=== PATIENT | female | born 1940 | race Caucasian/White ===

== ENCOUNTER 2016-10-18 11:53 | Outpatient (CLI) | payer MEDICARE, OTHER | END 2016-10-18 11:54 | disposition critical access hospital (66) | DX: R13.10 Dysphagia, unspecified (principal) | CPT/HCPCS: A0425; A0429 ==

== ENCOUNTER 2016-10-18 12:09 | Emergency (ER) | payer MEDICARE, OTHER | END 2016-10-18 13:56 | disposition home or self-care (01) | DX: L76.22 Postprocedural hemorrhage of skin and subcutaneous tissue following other procedure (principal); Z85.828 Personal history of other malignant neoplasm of skin; Z79.82 Long term (current) use of aspirin; I10 Essential (primary) hypertension; Z86.73 Personal history of transient ischemic attack (TIA), and cerebral infarction without residual deficits ==

== ENCOUNTER 2016-11-30 09:24 | Outpatient (CLI) | payer MEDICARE, OTHER | END 2016-11-30 09:25 | disposition EMS.NT | LOC: EMS 09:24 | PROVIDERS: ATTEND Surgery | DX: R53.1 Weakness (principal) ==

== ENCOUNTER 2017-03-31 18:30 | Outpatient (CLI) | payer MEDICARE, MEDICAID | END 2017-03-31 18:31 | disposition EMS.NT | LOC: EMS 18:30 | PROVIDERS: ATTEND Surgery | DX: R42 Dizziness and giddiness (principal); R11.0 Nausea; W18.30XA Fall on same level, unspecified, initial encounter; Y92.008 Other place in unspecified non-institutional (private) residence as the place of occurrence of the external cause ==

== ENCOUNTER 2017-06-08 10:44 | Outpatient (CLI) | payer MEDICARE | END 2017-06-08 10:45 | disposition EMS.NT | LOC: EMS 10:44 | PROVIDERS: ATTEND Surgery | DX: Z03.89 Encounter for observation for other suspected diseases and conditions ruled out (principal); W08.XXXA Fall from other furniture, initial encounter; Y92.000 Kitchen of unspecified non-institutional (private) residence as the place of occurrence of the external cause ==

== ENCOUNTER 2017-07-29 10:51 | Outpatient (CLI) | payer MEDICARE | END 2017-07-29 10:52 | disposition EMS.NT | LOC: EMS 10:51 | PROVIDERS: ATTEND Surgery | DX: Z03.89 Encounter for observation for other suspected diseases and conditions ruled out (principal); W18.30XA Fall on same level, unspecified, initial encounter; Y93.01 Activity, walking, marching and hiking; Y92.008 Other place in unspecified non-institutional (private) residence as the place of occurrence of the external cause ==

== ENCOUNTER 2017-10-01 22:49 | Outpatient (CLI) | payer MEDICARE | END 2017-10-01 22:50 | disposition critical access hospital (66) | LOC: EMS 22:49 | PROVIDERS: ATTEND Surgery | DX: R11.2 Nausea with vomiting, unspecified (principal) | CPT/HCPCS: A0425; A0429 ==

== ENCOUNTER 2017-10-01 22:59 | Emergency (ER) | payer MEDICARE ==
[2017-10-01] MEDS ORDERED: SODIUM CHLORIDE 0.9% 1,000 ML IV ONE (23:10)
[2017-10-01] MEDS ORDERED: ONDANSETRON 4 MG/2 ML VIAL IVP STA (23:10)
[2017-10-01 23:44] LABS: BASOPHILS # (AUTO) 0.1 10^3/uL (0.0-0.1); BASOPHILS % (AUTO) 0.8 %; EOSINOPHILS # (AUTO) 0.2 10^3/uL (0.0-0.7); EOSINOPHILS % (AUTO) 3.2 %; HGB - HEMOGLOBIN 9.5 g/dL (12.0-16.0); LYMPHOCYTES # (AUTO) 1.8 10^3/uL (1.5-3.5); LYMPHOCYTES % (AUTO) 24.1 %; MEAN CORPUSCULAR HEMOGLOBIN 26.2 pg (27.0-31.0); MEAN CORPUSCULAR HGB CONC 31.8 g/dL (32.0-36.0); MEAN CORPUSCULAR VOLUME 82.3 fL (81.0-99.0); MEAN PLATELET VOLUME 7.2 fL (7.9-10.8); MONOCYTES # (AUTO) 0.4 10^3/uL (0.0-1.0); MONOCYTES % (AUTO) 5.8 %; NEUTROPHILS % (AUTO) 66.1 %; PLT - PLATELET COUNT 333 10^3/uL (130-450); RED BLOOD COUNT 3.63 10^6/uL (4.20-5.40); RED CELL DISTRIBUTION WIDTH 16.4 % (12.0-15.0); WHITE BLOOD COUNT 7.6 x10^3/uL (4.8-10.8)
[2017-10-01 23:57] LABS: ALBUMIN 3.4 g/dL (3.2-5.5); ALKALINE PHOSPHATASE 51 IU/L (42-121); ALT ALANINE AMINOTRANSFERASE < 10 IU/L (10-60); AST ASPARTATE AMINOTRANSFERASE 14 IU/L (10-42); BILIRUBIN,TOTAL 0.3 mg/dL (0.2-1.0); BUN - BLOOD UREA NITROGEN 35 mg/dL (6-20); CARBON DIOXIDE - CO2 22 mmol/L (21-32); CHLORIDE 106 mmol/L (101-111); CK- CREATINE KINASE 34 IU/L (22-269); GFR - MDRD 24 (>89); GLUCOSE 154 mg/dL (70-100); LIPASE 35 U/L (22-51); PHOSPHORUS 3.8 mg/dL (2.5-4.6); SODIUM 137 mmol/L (135-145); TOTAL PROTEIN 6.9 g/dL (6.7-8.2)
[2017-10-02] MEDS ORDERED: SODIUM CHLORIDE 0.9% 1,000 ML IV ONE (00:14)
[2017-10-02 01:20] LABS: BILIRUBIN,URINE NEGATIVE (NEGATIVE); GLUCOSE, URINE (UA) NEGATIVE (NEGATIVE); KETONES,URINE (UA) NEGATIVE (NEGATIVE); LEUKOCYTE ESTERASE, URINE TRACE (NEGATIVE); NITRITE,URINE NEGATIVE (NEGATIVE); OCCULT BLOOD,URINE TRACE-INTA (NEGATIVE); PROTEIN,URINE NEGATIVE (NEGATIVE); UROBILINOGEN,URINE 0.2 (NORMAL) E.U./dL (NORMAL)
[2017-10-02 01:24] LABS: CLARITY,URINE HAZY (CLEAR)
[2017-10-02 01:29] LABS: BACTERIA,URINE Many /HPF (None Seen); RBC,URINE 0-5 /HPF (0-5); SQUAMOUS EPITHELIAL CELL,UR FEW Squamous (<= Few)
--- NOTE | 2017-10-02 01:35 | XRAY Report ---
EXAM: CHEST RADIOGRAPHY EXAM DATE: 10/02/2017 01:14 AM. CLINICAL HISTORY: Shortness of breath. COMPARISON: None. TECHNIQUE: 2 views. FINDINGS: Lungs/Pleura: No focal pneumonia or edema evident. No gross pneumothorax or pleural effusion. Mediastinum: Mild cardiomegaly. Stable aortic contour. Other: None. IMPRESSION: Mild cardiomegaly without overt heart failure. [facility] Referring Provider Line: [phone] SITE ID: [id number]
[2017-10-02] MEDS ORDERED: SULFAMETH/TRIMETH DS 800/160 MG TABLET PO STA (02:16)
--- NOTE | 2017-10-02 02:17 | ED Physician Documentation ---
PD HPI NVD - Stated complaint Stated Complaint: SOA/NAUSEA - Chief complaint Chief Complaint: Resp - History obtained from History obtained from: Patient, Family, EMS - History of Present Illness Timing - onset: Today Timing - details: Gradual onset, Still present Associated symptoms: Abdominal pain. No: Fever Contributing factors: No: Recent antibiotics Similar symptoms before: Work up / diagnostics, Treatment Recently seen: Not recently seen - Additonal information Additional information: Patient is a 77 year old female with dementia and other comorbities who is presenting to the emergency department for vomiting and diarrhea. According to ems the symptoms started today with multiple episodes of vomiting. Patient is a poor historian so the actual history of the symptoms are unclear. Upon initial evaluation in the emergency department patient is poorly kept with vomit on her shirt and stool on both her legs. Review of Systems Unable to obtain: Dementia PD PAST MEDICAL HISTORY - Past Medical History Past Medical History: Yes Cardiovascular: Hypertension Respiratory: None Neuro: Alzhiemer's, Dementia, TIA, Other Endocrine/Autoimmune: None GI: None : Incontinence HEENT: None Psych: Depression Derm: None - Past Surgical History Past Surgical History: Yes Derm: Skin cancer surgery - Present Medications Home Medications: Ambulatory Orders Medication Instructions Recorded Confirmed Aspirin [Nathan Chewable Aspirin] 81 mg PO DAILY 09/25/15 05/10/17 Ciprofloxacin [Cipro] 500 mg PO BID #28 tablet 05/11/17 amLODIPine [Norvasc] 5 mg PO DAILY #30 tablet 05/11/17 Nystatin 1 applic TP BID #60 gm 10/02/17 Ondansetron Odt [Zofran] 4 mg TL Q6H PRN #14 tablet 10/02/17 Sulfamethox/Trimeth 800/160 1 each PO BID #14 tablet 10/02/17 [Bactrim Ds 800/160] - Allergies Allergies/Adverse Reactions: Allergies Allergy/AdvReac Type Severity Reaction Status Date / Time No Known Drug Allergies Allergy Verified 05/10/17 16:57 - Social History Does the pt smoke?: No Smoking Status: Never smoker Does the pt drink ETOH?: Yes Does the pt have substance abuse?: No - Immunizations Immunizations: TDAP >10years/unknown PD ED PE NORMAL - HEENT HEENT: Atraumatic - Neck Neck: No JVD - Cardiac Cardiac: RRR, No murmur - Respiratory Respiratory: No respiratory distress - Neuro Eye Opening: Spontaneous PD ED PE EXPANDED - General General: Alert, Disheveled, poorly kept - HEENT HEENT: Dry mucous membranes, Dental decay - Abdomen Abdomen: Tender to palpation, Generalized/diffuse. No: Rebound, Guarding - Derm Derm: Rash (rash consistent with fungal infections below both breasts) Results - Vitals Vitals: Vital Signs - 24 hr 10/01/17 10/02/17 10/02/17 23:02 01:30 02:56 Temperature 36.4 C L 36.6 C Heart Rate 63 61 59 L Respiratory 16 16 14 Rate Blood Pressure 139/53 H 155/98 H 187/64 H O2 Saturation 94 97 97 Oxygen O2 Source Room air - EKG (time done) 2304 Rate: Rate (enter#) (57) Rhythm: NSR [place]: Normal QRS: LVH Ischemia: T wave inversion Compare to prior EKG: Unchanged from prior EKG 0030 Rate: Rate (enter#) (55) Rhythm: NSR QRS: LVH Ischemia: T wave inversion Compare to prior EKG: Unchanged from prior EKG - Labs Labs: Laboratory Tests 10/01/17 10/01/17 10/01/17 23:35 23:35 23:35 WBC 7.6 RBC 3.63 L Hgb 9.5 L Hct 29.9 L MCV 82.3 MCH 26.2 L MCHC 31.8 L RDW 16.4 H Plt Count 333 MPV 7.2 L Neut # 5.0 Lymph # 1.8 [place] # 0.4 Eos # 0.2 Baso # 0.1 Absolute Nucleated RBC 0.01 Nucleated RBC % 0.1 Sodium 137 Potassium 3.6 Chloride 106 Carbon Dioxide 22 Anion Gap 9.0 BUN 35 H Creatinine 2.0 H Estimated GFR (MDRD) 24 L Glucose 154 H Lactic Acid Calcium 9.0 Phosphorus 3.8 Magnesium 2.0 Total Bilirubin 0.3 AST 14 ALT < 10 L Alkaline Phosphatase 51 Total Creatine Kinase 34 Troponin I < 0.04 Total Protein 6.9 Albumin 3.4 Globulin 3.5 Albumin/Globulin Ratio 1.0 Lipase 35 Urine Color Urine Clarity Urine pH Ur Specific [place] Urine Protein Urine Glucose (UA) Urine Ketones Urine Occult Blood Urine Nitrite Urine Bilirubin Urine Urobilinogen Ur Leukocyte Esterase Urine RBC Urine WBC Ur Squamous Epith Cells Urine Bacteria Ur Microscopic Review Urine Culture Comments 10/02/17 10/02/17 10/02/17 00:15 00:50 01:55 WBC RBC Hgb Hct MCV MCH MCHC RDW Plt Count MPV Neut # Lymph # [place] # Eos # Baso # Absolute Nucleated RBC Nucleated RBC % Sodium Potassium Chloride Carbon Dioxide Anion Gap BUN Creatinine Estimated GFR (MDRD) Glucose Lactic Acid 1.0 Calcium Phosphorus Magnesium Total Bilirubin AST ALT Alkaline Phosphatase Total Creatine Kinase Troponin I < 0.04 Total Protein Albumin Globulin Albumin/Globulin Ratio Lipase Urine Color YELLOW Urine Clarity HAZY Urine pH 5.0 Ur Specific [place] >=1.030 H Urine Protein NEGATIVE Urine Glucose (UA) NEGATIVE Urine Ketones NEGATIVE Urine Occult Blood TRACE-INTA Urine Nitrite NEGATIVE Urine Bilirubin NEGATIVE Urine Urobilinogen 0.2 (NORMAL) Ur Leukocyte Esterase TRACE H Urine RBC 0-5 Urine WBC 11-25 H Ur Squamous Epith Cells FEW Squamous Urine Bacteria Many H Ur Microscopic Review INDICATED Urine Culture Comments INDICATED - Rads (name of study) chest x-ray Radiology: Final report received (cardiomegaly without over failure) PD MEDICAL DECISION MAKING - ED course Complexity details: reviewed old records, reviewed results, re-evaluated patient , considered differential, d/w patient, d/w family ED course: Patient was seen and examined at bedside. Iv access was gained and labs were drawn. ekg was performed and was unchanged from patient's previous ekg. patient was treated with a fluid bolus, and zofran. Patient was moderately dehydrated. patients' came and stated that the patient has had intermittent nausea and vomiting virtually every week. He states that she has not taken a complete shower in a long time. repeat ekg and troponin were within normal limits. patient stated that she was feeling better and wanted to go home. patient was found to have a urinary tract infection and was started on bactrim. patient's fungal infections were treated with nystatin creams. Patient's was given detailed discharge and follow up instructions. Patient was stable for discharge with outpatient follow up. Departure - Departure Disposition: Home, Self Care Clinical Impression: Urinary tract infection, Candidiasis Condition: Good Instructions: ED UTI Cystitis Female Follow-Up: primary,care provider [Other] - Within 3 Days Prescriptions: Nystatin 1 applic TP BID #60 gm Ondansetron Odt [Zofran] 4 mg TL Q6H PRN #14 tablet PRN Reason: Nausea / Vomiting Sulfamethox/Trimeth 800/160 [Bactrim Ds 800/160] 1 each PO BID #14 tablet Comments: Your symptoms today are being caused by a urinary tract infection, dehydration and fungal infection. You should continue to take the zofran for nausea and stay well hydrated. You will need to work on better hygiene. You should apply the powder under your breast twice a day. You will be on antibiotics for your urinary tract infection twice a day for a week. You should follow up with your doctor early next week. You may return to the emergency department at any time for new, worsening or uncontrollable symptoms.
[2017-10-02] MEDS ORDERED: NYSTATIN POWDER 15 GM TOP STA (02:28)
[2017-10-02 02:57] VITALS: BP 187/64
== END 2017-10-02 03:00 | disposition home or self-care (01) ==
LOC: EDUNIT# → ED 22:59
DX: B37.49 Other urogenital candidiasis (principal); E86.0 Dehydration; R94.31 Abnormal electrocardiogram [ECG] [EKG]; G30.9 Alzheimer's disease, unspecified; F02.80 Dementia in other diseases classified elsewhere, unspecified severity, without behavioral disturbance, psychotic disturbance, mood disturbance, and anxiety; Z86.73 Personal history of transient ischemic attack (TIA), and cerebral infarction without residual deficits; Z79.82 Long term (current) use of aspirin
CPT/HCPCS: 36415; 71046; 80053; 81001; 82550; 83605; 83690; 83735; 84100; 84484; 85025; 87040; 87077; 87086; 87181; 93005; 96361; 96374; 99283; 99284; A9270; 81003

== ENCOUNTER 2018-03-29 09:26 | Outpatient (CLI) | payer MEDICARE | END 2018-03-29 09:27 | disposition critical access hospital (66) | LOC: EMS 09:26 | PROVIDERS: ATTEND Surgery | DX: R51 Headache (principal); R53.1 Weakness | CPT/HCPCS: A0425; A0429 ==

== ENCOUNTER 2018-03-29 09:38 | Emergency (ER) | payer MEDICARE ==
[2018-03-29 09:53] LABS: BASOPHILS # (AUTO) 0.1 10^3/uL (0.0-0.1); EOSINOPHILS # (AUTO) 0.2 10^3/uL (0.0-0.7); EOSINOPHILS % (AUTO) 3.5 %; HGB - HEMOGLOBIN 10.3 g/dL (12.0-16.0); LYMPHOCYTES # (AUTO) 1.7 10^3/uL (1.5-3.5); LYMPHOCYTES % (AUTO) 29.7 %; MEAN CORPUSCULAR HEMOGLOBIN 28.1 pg (27.0-31.0); MEAN CORPUSCULAR HGB CONC 33.9 g/dL (32.0-36.0); MEAN CORPUSCULAR VOLUME 83.1 fL (81.0-99.0); MEAN PLATELET VOLUME 7.5 fL (7.9-10.8); MONOCYTES # (AUTO) 0.5 10^3/uL (0.0-1.0); MONOCYTES % (AUTO) 8.4 %; NEUTROPHILS # (AUTO) 3.4 10^3/uL (1.5-6.6); NEUTROPHILS % (AUTO) 57.4 %; PLT - PLATELET COUNT 296 10^3/uL (130-450); RED BLOOD COUNT 3.64 10^6/uL (4.20-5.40); RED CELL DISTRIBUTION WIDTH 15.7 % (12.0-15.0); WHITE BLOOD COUNT 5.8 x10^3/uL (4.8-10.8)
--- NOTE | 2018-03-29 09:53 | ED Physician Documentation ---
History of Present Illness - Stated complaint Stated Complaint: POSS STROKE - Additonal information Additional information: hx from EMS who got hx from at the house - and from pt 77 f BIBA for overall weakness and a HUGO and a fall per EMS she was seen by another EMS crew 3 days ago - details unknown - not transported then EMS states states she has declined since that time - more weak and confused, had a severe HUGO last night but not now, fell with walker early AM (landed on her bottom and did not hit her head or suffer any injury per pt) was confused and unable to smile normally this AM but that is better now too (per EMS was not a facial droop or unilateral, just overall her face was not moving) at this time pt denies any pain - denies HUGO neck pain CP AP ext pain also denies fever cough soa NVD urinary sx EMS states lives at home with and has a wheelchair and a walker, no POLST, meds are lisnopril and fluoxetine, no anticoagulants Review of Systems Constitutional: denies: Fever Eyes: denies: Loss of vision Ears: denies: Loss of hearing Cardiac: denies: Chest pain / pressure, Palpitations Respiratory: denies: Dyspnea, Cough GI: denies: Abdominal Pain, Nausea, Vomiting, Diarrhea : denies: Dysuria Musculoskeletal: denies: Neck pain, Back pain, Extremity pain, Joint pain Neurologic: reports: Generalized weakness, Headache. denies: Focal weakness, Numbness, Difficulty speaking, Head injury Endocrine: denies: Easy bruising / bleeding Immunocompromised: denies: Immunocompromised PD PAST MEDICAL HISTORY - Past Medical History Cardiovascular: Hypertension Respiratory: None Endocrine/Autoimmune: None GI: None : Incontinence HEENT: None Psych: Depression Derm: None - Past Surgical History Past Surgical History: Yes Derm: Skin cancer surgery - Present Medications Home Medications: Ambulatory Orders Medication Instructions Recorded Confirmed Cephalexin [Keflex] 500 mg PO Q6H #28 capsule 03/29/18 FLUoxetine [PROzac] 10 mg ORAL DAILY 03/29/18 03/29/18 Lisinopril 10 mg ORAL DAILY 03/29/18 03/29/18 - Allergies Allergies/Adverse Reactions: Allergies Allergy/AdvReac Type Severity Reaction Status Date / Time No Known Drug Allergies Allergy Verified 03/29/18 09:46 - Social History Does the pt smoke?: No Smoking Status: Never smoker Does the pt drink ETOH?: Yes Does the pt have substance abuse?: No - Immunizations Immunizations: TDAP >10years/unknown PD ED PE NORMAL - Vitals Vital signs reviewed: Yes - General General: Alert and oriented X 3 - HEENT HEENT: Atraumatic, PERRL, EOMI - Neck Neck: Supple, no meningeal sign, No bony TTP - Cardiac Cardiac: RRR - Respiratory Respiratory: No respiratory distress - Abdomen Abdomen: Soft, Non tender - Derm Derm: Normal color - Extremities Extremities: No deformity, No tenderness to palpate, Normal ROM s pain, Other (rocio edema) - Neuro Neuro: Alert and oriented X 3, director of income tax 2-12 intact, No motor deficit, No sensory deficit, Normal speech, Other (generally weak all over but able to lift arms and legs against gravity, non focal) Eye Opening: Spontaneous Motor: Obeys Commands Verbal: Oriented GCS Score: 15 Results - Vitals Vitals: Vital Signs - 24 hr 03/29/18 03/29/18 03/29/18 09:39 10:52 11:58 Temperature 36.4 C L Heart Rate 60 51 L 54 L Respiratory 16 12 12 Rate Blood Pressure 178/102 H 162/108 H 249/64 H O2 Saturation 96 97 97 Oxygen O2 Source Room air - EKG (time done) 1014 Rate: Rate (enter#) (53) Rhythm: Sinus bradycardia, Atrial fibrillation (waves visible V3 V4) Ischemia: Q waves (inferior with very slight < [address] elev), T wave inversion (V5V6) Compare to prior EKG: Unchanged from prior EKG (same as September 2017) - Labs Labs: Laboratory Tests 03/29/18 03/29/18 03/29/18 09:47 09:47 09:47 WBC 5.8 RBC 3.64 L Hgb 10.3 L Hct 30.3 L MCV 83.1 MCH 28.1 MCHC 33.9 RDW 15.7 H Plt Count 296 MPV 7.5 L Neut # (Auto) 3.4 Lymph # (Auto) 1.7 [place] # (Auto) 0.5 Eos # (Auto) 0.2 Baso # (Auto) 0.1 Absolute Nucleated RBC 0.00 Nucleated RBC % 0.0 Whole Blood INR Sodium 138 Potassium 3.9 Chloride 106 Carbon Dioxide 24 Anion Gap 8.0 BUN 27 H Creatinine 1.5 H Estimated GFR (MDRD) 34 L Glucose 98 Calcium 9.1 Total Bilirubin 0.4 AST 17 ALT < 10 L Alkaline Phosphatase 45 Troponin I 0.04 Total Protein 7.0 Albumin 3.4 Globulin 3.6 Albumin/Globulin Ratio 0.9 L Lipase 36 Urine Color Urine Clarity Urine pH Ur Specific [place] Urine Protein Urine Glucose (UA) Urine Ketones Urine Occult Blood Urine Nitrite Urine Bilirubin Urine Urobilinogen Ur Leukocyte Esterase Urine RBC Urine WBC Ur Squamous Epith Cells Urine Bacteria Urine Casts Ur Microscopic Review Urine Culture Comments 03/29/18 03/29/18 10:09 10:44 WBC RBC Hgb Hct MCV MCH MCHC RDW Plt Count MPV Neut # (Auto) Lymph # (Auto) [place] # (Auto) Eos # (Auto) Baso # (Auto) Absolute Nucleated RBC Nucleated RBC % Whole Blood INR 1.1 Sodium Potassium Chloride Carbon Dioxide Anion Gap BUN Creatinine Estimated GFR (MDRD) Glucose Calcium Total Bilirubin AST ALT Alkaline Phosphatase Troponin I Total Protein Albumin Globulin Albumin/Globulin Ratio Lipase Urine Color YELLOW Urine Clarity CLEAR Urine pH 6.0 Ur Specific [place] 1.025 Urine Protein TRACE Urine Glucose (UA) NEGATIVE Urine Ketones NEGATIVE Urine Occult Blood TRACE-INTA Urine Nitrite POSITIVE H Urine Bilirubin NEGATIVE Urine Urobilinogen 0.2 (NORMAL) Ur Leukocyte Esterase TRACE H Urine RBC 0-5 Urine WBC 6-10 H Ur Squamous Epith Cells RARE Squamous Urine Bacteria Moderate H Urine Casts 3-5 Granular Casts Ur Microscopic Review INDICATED Urine Culture Comments INDICATED - Rads (name of study) CTH Radiology: See rad report (no acute process, no ICH, no fx, no mass, stable generalized volume loss and chronic white matter disease, atherosclerosis) CXR Radiology: See rad report (no acute, borderline heart size (see prior echo) no CHF) PD MEDICAL DECISION MAKING - ED course ED course: reviewed chart prior evals for weakness syncope TIA falls admitted 2017 for syncope - admit note states pnhx HTN TIA and alzheminers, upon admitnoted to have a fib, uncontrolled HTN CKD anemia, had echo showing severe LVH, EF > 75% dilated LA, mild AR and MR, 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, , CTH showed chronic microangiopathy, retroperitneal sono showed atrophy but not renal artery stenosis or any hydro, she also had a UTI at that time grew E Coli tx with rocephin then cipro and her last carotid doppler was 2014 and showed no sig stenosis EKG sinus glenny now anemia not new renal insuff not new CTH no acute CXR no acute does have a UTI which likely explains her sx will give rocephin and speak with pt and SO re dc on meds vs admit due to increased weakness and fall BP was high - pt had not taken her meds - gave her lisinopril - BP did not get rechecked prior to dc nursing states pt able to transfer with a walker states have caregivers at home as well as the walker and wheelchair he feels comfortable taking her home - Sepsis Event Vital Signs: Vital Signs - 24 hr 03/29/18 03/29/18 03/29/18 09:39 10:52 11:58 Temperature 36.4 C L Heart Rate 60 51 L 54 L Respiratory 16 12 12 Rate Blood Pressure 178/102 H 162/108 H 249/64 H O2 Saturation 96 97 97 Oxygen O2 Source Room air Departure - Departure Disposition: 01 Home, Self Care Clinical Impression: Weakness UTI (urinary tract infection) Qualifiers: Urinary tract infection type: site unspecified Hematuria presence: without hematuria Qualified Code(s): N39.0 - Urinary tract infection, site not specified Fall Qualifiers: Encounter type: initial encounter Qualified Code(s): W19.XXXA - Unspecified fall, initial encounter Condition: Good Instructions: ED UTI Cystitis Female, ED Weakness UKO Prescriptions: Cephalexin [Keflex] 500 mg PO Q6H #28 capsule Comments: Your labs were fine or unchanged from prior Your blood pressure was high but we gave you your daily lisinopril and that should help - please follow up with your PMD for a recheck this week You have a urine infection and that likely caused the weakness recently We started antibiotics You wanted to go home and have a walker and a wheelchair and caregivers already. You will likely be weaker than normal for up to a week and may need extra assistance and precautions to prevent falls. Please follow up with your PMD this week. Return to the ER if worse in any way Discharge Date/Time: 03/29/18 12:50 NIHSS - Time Time: 09:50 - Level of Consciousness Level of consciousness: (0) Alert, Keenly responsive LOC Questions: (0) Answers both Q's correct LOC Commands: (0) Performs both correctly - Gaze Best Gaze: (0) Normal - Visual Visual: (0) No loss - Facial Palsy Facial Palsy: (0) Normal, symmetrical movement - Motor Arms (both separate) Motor Arm (right): (0) No drift Motor Arm (left): (0) No drift - Motor Legs (both separate) Motor Leg (right): (2) Some effort against gravity Motor Leg (left): (2) Some effort against gravity - Limb Ataxia Limb Ataxia: (0) Absent - Sensory Sensory: (0) Normal - Best Language Best Language: (0) No aphasia - Dysarthria Dysarthria: (0) Normal - Extinction and Inattention (formally neg Extinction and inattention: (0) No abnormality (rocio symm generalized non focal weakness) - Total Score/Results Total Score/Result: 4
[2018-03-29 10:03] LABS: ALBUMIN 3.4 g/dL (3.2-5.5); ALBUMIN/GLOBULIN RATIO 0.9 (1.0-2.2); ALKALINE PHOSPHATASE 45 IU/L (42-121); ALT ALANINE AMINOTRANSFERASE < 10 IU/L (10-60); AST ASPARTATE AMINOTRANSFERASE 17 IU/L (10-42); BILIRUBIN,TOTAL 0.4 mg/dL (0.2-1.0); BUN - BLOOD UREA NITROGEN 27 mg/dL (6-20); CALCIUM 9.1 mg/dL (8.5-10.3); CARBON DIOXIDE - CO2 24 mmol/L (21-32); CHLORIDE 106 mmol/L (101-111); CREATININE 1.5 mg/dL (0.4-1.0); GFR - MDRD 34 (>89); GLUCOSE 98 mg/dL (70-100); LIPASE 36 U/L (22-51); SODIUM 138 mmol/L (135-145)
--- NOTE | 2018-03-29 10:18 | CT Report ---
Reason: HUGO AMS weakness Procedure Date: 03/29/2018 Accession Number: [id number] / [id number] Procedure: CT - Head W/O CPT Code: FULL RESULT: EXAM: CT HEAD EXAM DATE: 03/29/2018 10:00 AM. CLINICAL HISTORY: Headache. Worsening confusion. Weakness. COMPARISON: 04/20/2017. TECHNIQUE: Multiaxial CT images were obtained from the foramen magnum to the vertex. Reformats: Coronal. IV contrast: None. In accordance with CT protocol optimization, one or more of the following dose reduction techniques were utilized for this exam: automated exposure control, adjustment of mA and/or KV based on patient size, or use of iterative reconstructive technique. FINDINGS: Parenchyma: No intraparenchymal hemorrhage. No focal mass-effect, midline shift, or CT findings of acute infarction. Generalized cerebral and cerebellar volume loss with similar moderately extensive patchy bilateral periventricular and supratentorial white matter hypodensities, consistent with chronic ischemic microangiopathy. [place]-white differentiation is otherwise distinct. Extraaxial Spaces: Stable diffuse sulcal prominence. No subdural or epidural collections identified. Ventricles: Stable mild ventricular prominence compatible with central atrophy. Sinuses and Orbits: Mild mucosal thickening of posterior inferior bilateral maxillary antra, without full level. Other imaged paranasal sinuses, orbits, and mastoids show no significant abnormality. Bones: No calvarial fracture. Other: Calcified cavernous carotids. IMPRESSION: 1. No acute intracranial abnormality evident. No intracranial hemorrhage or space-occupying lesion. 2. Stable generalized volume loss and chronic white matter disease. 3. Atherosclerosis. 4. No calvarial fracture. [facility]
--- NOTE | 2018-03-29 10:20 | XRAY Report ---
Reason: weakness Procedure Date: 03/29/2018 Accession Number: [id number] / [id number] Procedure: XR - Chest 2 View X-Ray CPT Code: 95182 FULL RESULT: EXAM: CHEST RADIOGRAPHY EXAM DATE: 03/29/2018 10:05 AM. CLINICAL HISTORY: Weakness. History of cardiomegaly. COMPARISON: 10/02/2017. TECHNIQUE: 2 views. FINDINGS: Lungs/Pleura: No focal opacities or vascular congestion. No pleural effusion or pneumothorax. Normal volumes. Mediastinum: Borderline cardiomegaly. Normal superior mediastinal contour. Other: No acute fracture evident. IMPRESSION: 1. No acute cardiopulmonary findings. 2. Borderline heart size without failure. [facility]
[2018-03-29 10:48] LABS: BILIRUBIN,URINE NEGATIVE (NEGATIVE); GLUCOSE, URINE (UA) NEGATIVE (NEGATIVE); KETONES,URINE (UA) NEGATIVE (NEGATIVE); LEUKOCYTE ESTERASE, URINE TRACE (NEGATIVE); NITRITE,URINE POSITIVE (NEGATIVE); OCCULT BLOOD,URINE TRACE-INTA (NEGATIVE); PROTEIN,URINE TRACE mg/dL (NEGATIVE); UROBILINOGEN,URINE 0.2 (NORMAL) E.U./dL (NORMAL)
[2018-03-29 10:50] LABS: CLARITY,URINE CLEAR (CLEAR)
[2018-03-29] MEDS ORDERED: cefTRIAXone 1 GM in SODIUM CHLORIDE 0.9% MINIBAG 100 ML IV STA (10:53)
[2018-03-29 11:13] LABS: BACTERIA,URINE Moderate /HPF (None Seen); RBC,URINE 0-5 /HPF (0-5); SQUAMOUS EPITHELIAL CELL,UR RARE Squamous (<= Few)
[2018-03-29 11:59] VITALS: BP 249/64
[2018-03-29] MEDS ORDERED: LISINOPRIL 5 MG TABLET PO STA (12:33)
== END 2018-03-29 12:50 | disposition home or self-care (01) ==
LOC: EDUNIT# → ED 09:38
DX: R53.1 Weakness (principal); N39.0 Urinary tract infection, site not specified; I12.9 Hypertensive chronic kidney disease with stage 1 through stage 4 chronic kidney disease, or unspecified chronic kidney disease; N18.9 Chronic kidney disease, unspecified; G30.9 Alzheimer's disease, unspecified; F02.80 Dementia in other diseases classified elsewhere, unspecified severity, without behavioral disturbance, psychotic disturbance, mood disturbance, and anxiety; I48.91 Unspecified atrial fibrillation; R00.1 Bradycardia, unspecified; Z86.73 Personal history of transient ischemic attack (TIA), and cerebral infarction without residual deficits; Z91.81 History of falling
CPT/HCPCS: 36415; 70450; 71046; 80053; 81001; 83690; 84484; 85025; 85610; 87086; 87181; 93005; 96374; 99284; 99285; A9270; 81003

== ENCOUNTER 2018-05-03 15:17 | Outpatient (CLI) | payer MEDICARE | END 2018-05-03 15:18 | disposition critical access hospital (66) | LOC: EMS 15:17 | PROVIDERS: ATTEND Surgery | DX: R46.4 Slowness and poor responsiveness (principal) | CPT/HCPCS: A0425; A0429 ==

== ENCOUNTER 2018-05-03 15:29 | Emergency (ER) | payer MEDICARE ==
--- NOTE | 2018-05-03 15:50 | ED Physician Documentation ---
History of Present Illness - Stated complaint Stated Complaint: DEC LOC - Chief complaint Chief Complaint: General - History obtained from History obtained from: Patient, EMS - History of Present Illness Timing: Today (77-year-old woman who lives at home with her and caregiver. She has dementia. Reportedly from the paramedics she had a 20- minute episode of not talking and staring off into space today without syncope. This is similar to prior recent UTI symptoms. The is not here on the patient's arrival and on my initial evaluation but I am led to be coming shortly. No significant history is available from the patient due to dementia.) Review of Systems Unable to obtain: Dementia PD PAST MEDICAL HISTORY - Past Medical History Cardiovascular: Hypertension Respiratory: None Neuro: Dementia Endocrine/Autoimmune: None GI: None : Incontinence HEENT: None Psych: Depression Derm: None - Past Surgical History Past Surgical History: Yes Derm: Skin cancer surgery - Present Medications Home Medications: Ambulatory Orders Medication Instructions Recorded Confirmed Cephalexin [Keflex] 500 mg PO Q6H #28 capsule 03/29/18 FLUoxetine [PROzac] 10 mg ORAL DAILY 03/29/18 03/29/18 Lisinopril 10 mg ORAL DAILY 03/29/18 03/29/18 Ciprofloxacin HCl [Cipro] 500 mg PO BID #10 tablet 05/03/18 - Allergies Allergies/Adverse Reactions: Allergies Allergy/AdvReac Type Severity Reaction Status Date / Time No Known Drug Allergies Allergy Verified 03/29/18 09:46 - Social History Does the pt smoke?: No Smoking Status: Never smoker Does the pt drink ETOH?: Yes Does the pt have substance abuse?: No - Immunizations Immunizations: TDAP >10years/unknown PD ED PE NORMAL - Vitals Vital signs reviewed: Yes - General General: Other (She is alert and oriented to person, she is able to state she is in the hospital but not really why, she is unaware of the date or year.) - HEENT HEENT: PERRL, EOMI - Neck Neck: Supple, no meningeal sign, No bony TTP - Cardiac Cardiac: RRR, No murmur - Respiratory Respiratory: No respiratory distress, Clear bilaterally - Abdomen Abdomen: Normal bowel sounds, Soft, Non tender - Back Back: No CVA TTP, No spinal TTP - Derm Derm: Normal color, Warm and dry - Extremities Extremities: No edema, No calf tenderness / cord - Neuro Neuro: bolt sorter 2-12 intact, Other (She has drift that is symmetric in all 4 extremities, not consistent with stroke. She has sensation in all 4 extremities. She seems very demented. I am led to believe from the paramedics report that this is basically her baseline.) Eye Opening: Spontaneous Motor: Obeys Commands Verbal: Confused GCS Score: 14 - Psych Psych: Normal mood, Normal affect Results - Vitals Vitals: Vital Signs - 24 hr 05/03/18 15:34 Temperature 36.5 C Heart Rate 57 L Respiratory 16 Rate Blood Pressure 188/52 H O2 Saturation 98 Oxygen O2 Source Room air - Labs Labs: Laboratory Tests 05/03/18 05/03/18 05/03/18 16:06 16:06 16:06 WBC 6.1 RBC 3.64 L Hgb 10.1 L Hct 30.6 L MCV 84.1 MCH 27.8 MCHC 33.0 RDW 15.6 H Plt Count 321 MPV 7.7 L Neut # (Auto) 4.0 Lymph # (Auto) 1.3 L [place] # (Auto) 0.5 Eos # (Auto) 0.2 Baso # (Auto) 0.1 Absolute Nucleated RBC 0.00 Nucleated RBC % 0.0 Sodium 138 Potassium 3.7 Chloride 104 Carbon Dioxide 27 Anion Gap 7.0 BUN 35 H Creatinine 1.7 H Estimated GFR (MDRD) 29 L Glucose 134 H Lactic Acid 1.4 Calcium 9.1 Total Bilirubin 0.6 AST 17 ALT < 10 L Alkaline Phosphatase 50 Total Protein 7.1 Albumin 3.6 Globulin 3.5 Albumin/Globulin Ratio 1.0 Lipase 40 Urine Color Urine Clarity Urine pH Ur Specific [place] Urine Protein Urine Glucose (UA) Urine Ketones Urine Occult Blood Urine Nitrite Urine Bilirubin Urine Urobilinogen Ur Leukocyte Esterase Urine RBC Urine WBC Ur Squamous Epith Cells Urine Bacteria Ur Microscopic Review Urine Culture Comments 05/03/18 16:35 WBC RBC Hgb Hct MCV MCH MCHC RDW Plt Count MPV Neut # (Auto) Lymph # (Auto) [place] # (Auto) Eos # (Auto) Baso # (Auto) Absolute Nucleated RBC Nucleated RBC % Sodium Potassium Chloride Carbon Dioxide Anion Gap BUN Creatinine Estimated GFR (MDRD) Glucose Lactic Acid Calcium Total Bilirubin AST ALT Alkaline Phosphatase Total Protein Albumin Globulin Albumin/Globulin Ratio Lipase Urine Color LIGHT YELLOW Urine Clarity CLOUDY Urine pH 6.0 Ur Specific [place] 1.020 Urine Protein TRACE Urine Glucose (UA) NEGATIVE Urine Ketones NEGATIVE Urine Occult Blood LARGE H Urine Nitrite POSITIVE H Urine Bilirubin NEGATIVE Urine Urobilinogen 0.2 (NORMAL) Ur Leukocyte Esterase MODERATE H Urine RBC 0-5 Urine WBC 11-25 H Ur Squamous Epith Cells FEW Squamous Urine Bacteria Moderate H Ur Microscopic Review INDICATED Urine Culture Comments INDICATED PD MEDICAL DECISION MAKING - ED course ED course: 77-year-old woman with an episode of staring off into space, symmetric exam here and back to baseline per the family. Again evidence of UTI. requesting discharge. Departure - Departure Disposition: 01 Home, Self Care Clinical Impression: Weakness Urinary tract infection Qualifiers: Urinary tract infection type: site unspecified Hematuria presence: without hematuria Qualified Code(s): N39.0 - Urinary tract infection, site not specified Condition: Good Record reviewed to determine appropriate education?: Yes Instructions: ED UTI Cystitis Female Prescriptions: Ciprofloxacin HCl [Cipro] 500 mg PO BID #10 tablet Comments: Talk with Dr. Nugent about prophylactic antibiotics and/or chronic indwelling catheter. Return for new or worsening symptoms. Also when you follow-up with Dr. Nugent, blood pressure recheck, her systolic was pretty high here.
[2018-05-03 16:14] LABS: BASOPHILS # (AUTO) 0.1 10^3/uL (0.0-0.1); BASOPHILS % (AUTO) 0.9 %; EOSINOPHILS # (AUTO) 0.2 10^3/uL (0.0-0.7); EOSINOPHILS % (AUTO) 3.5 %; HGB - HEMOGLOBIN 10.1 g/dL (12.0-16.0); LYMPHOCYTES # (AUTO) 1.3 10^3/uL (1.5-3.5); LYMPHOCYTES % (AUTO) 21.2 %; MEAN CORPUSCULAR HEMOGLOBIN 27.8 pg (27.0-31.0); MEAN CORPUSCULAR VOLUME 84.1 fL (81.0-99.0); MEAN PLATELET VOLUME 7.7 fL (7.9-10.8); MONOCYTES # (AUTO) 0.5 10^3/uL (0.0-1.0); MONOCYTES % (AUTO) 7.8 %; NEUTROPHILS % (AUTO) 66.6 %; PLT - PLATELET COUNT 321 10^3/uL (130-450); RED BLOOD COUNT 3.64 10^6/uL (4.20-5.40); RED CELL DISTRIBUTION WIDTH 15.6 % (12.0-15.0); WHITE BLOOD COUNT 6.1 x10^3/uL (4.8-10.8)
[2018-05-03 16:34] LABS: ALBUMIN 3.6 g/dL (3.2-5.5); ALKALINE PHOSPHATASE 50 IU/L (42-121); ALT ALANINE AMINOTRANSFERASE < 10 IU/L (10-60); AST ASPARTATE AMINOTRANSFERASE 17 IU/L (10-42); BILIRUBIN,TOTAL 0.6 mg/dL (0.2-1.0); BUN - BLOOD UREA NITROGEN 35 mg/dL (6-20); CALCIUM 9.1 mg/dL (8.5-10.3); CARBON DIOXIDE - CO2 27 mmol/L (21-32); CHLORIDE 104 mmol/L (101-111); CREATININE 1.7 mg/dL (0.4-1.0); GFR - MDRD 29 (>89); GLUCOSE 134 mg/dL (70-100); LIPASE 40 U/L (22-51); SODIUM 138 mmol/L (135-145); TOTAL PROTEIN 7.1 g/dL (6.7-8.2)
[2018-05-03 16:47] LABS: BILIRUBIN,URINE NEGATIVE (NEGATIVE); GLUCOSE, URINE (UA) NEGATIVE (NEGATIVE); KETONES,URINE (UA) NEGATIVE (NEGATIVE); LEUKOCYTE ESTERASE, URINE MODERATE (NEGATIVE); NITRITE,URINE POSITIVE (NEGATIVE); OCCULT BLOOD,URINE LARGE (NEGATIVE); PROTEIN,URINE TRACE mg/dL (NEGATIVE); UROBILINOGEN,URINE 0.2 (NORMAL) E.U./dL (NORMAL)
[2018-05-03 16:49] LABS: CLARITY,URINE CLOUDY (CLEAR)
[2018-05-03 16:50] LABS: RBC,URINE 0-5 /HPF (0-5); SQUAMOUS EPITHELIAL CELL,UR FEW Squamous (<= Few)
[2018-05-03 16:51] LABS: BACTERIA,URINE Moderate /HPF (None Seen)
[2018-05-03] MEDS ORDERED: CIPROFLOXACIN 250 MG TABLET PO STA (17:04)
[2018-05-03 17:47] VITALS: BP 155/67
== END 2018-05-03 17:47 | disposition home or self-care (01) ==
LOC: EDUNIT# → ED 15:29
DX: R53.1 Weakness (principal); F03.90 Unspecified dementia, unspecified severity, without behavioral disturbance, psychotic disturbance, mood disturbance, and anxiety; N39.0 Urinary tract infection, site not specified; I10 Essential (primary) hypertension
CPT/HCPCS: 36415; 80053; 81001; 83605; 83690; 85025; 87086; 87181; 99283; A9270; 81003

== ENCOUNTER 2018-05-28 20:36 | Outpatient (CLI) | payer MEDICARE | END 2018-05-28 20:37 | disposition critical access hospital (66) | LOC: EMS 20:36 | PROVIDERS: ATTEND Surgery | DX: R46.4 Slowness and poor responsiveness (principal) | CPT/HCPCS: A0425; A0427 ==

== ENCOUNTER 2018-05-28 20:47 | Emergency (ER) | payer MEDICARE ==
--- NOTE | 2018-05-28 21:17 | ED Physician Documentation ---
PD HPI ALTERED MENTAL STATUS - Stated complaint Stated Complaint: AMS - Chief complaint Chief Complaint: Neuro - History obtained from History obtained from: Patient, EMS - History of Present Illness Timing - onset: Enter time (20:00), Today Timing - details: Abrupt onset Quality / character: Less responsive, Confused Associated symptoms: No: Fever, Headache, Dyspnea, Cough, NVD, Urinary sx, General weakness, Focal weakness Contributing factors: Known dementia Recently seen: Emergency Dept - Additional information Additional information: approximately 8 PM tonight, per medics, family reported that patient became "confused and distant" (per medic report to ED RN), improving en route to ED. Family not in ED at the time of this evaluation, and patient is able to provide some answers to HPI/ROS Review of Systems Constitutional: denies: Fever, Chills, Myalgias, Sweats Eyes: denies: Loss of vision, Decreased vision Cardiac: denies: Chest pain / pressure Respiratory: denies: Dyspnea, Cough GI: denies: Abdominal Pain Neurologic: reports: Confused. denies: Generalized weakness, Focal weakness, Numbness, Headache PD PAST MEDICAL HISTORY - Past Medical History Past Medical History: Yes Cardiovascular: Hypertension Neuro: Dementia - Present Medications Home Medications: Ambulatory Orders Medication Instructions Recorded Confirmed Cephalexin [Keflex] 500 mg PO Q6H #28 capsule 03/29/18 FLUoxetine [PROzac] 10 mg ORAL DAILY 03/29/18 03/29/18 Lisinopril 10 mg ORAL DAILY 03/29/18 03/29/18 Ciprofloxacin HCl [Cipro] 500 mg PO BID #10 tablet 05/03/18 Home Medications Unobtainable 05/28/18 05/28/18 [HOME MEDICATIONS UNOBTAINABLE] - Allergies Allergies/Adverse Reactions: Allergies Allergy/AdvReac Type Severity Reaction Status Date / Time No Known Drug Allergies Allergy Verified 05/28/18 22:39 - Living Situation Living Situation: reports: With spouse/s.o. Living Arrangement: reports: At home PD ED PE NORMAL - Vitals Vital signs reviewed: Yes - General General: No acute distress, Well developed/nourished, Other (awake, alert, oriented x 2 (does not know year)) - HEENT HEENT: PERRL, EOMI - Neck Neck: Supple, no meningeal sign - Cardiac Cardiac: RRR - Respiratory Respiratory: No respiratory distress, Clear bilaterally - Abdomen Abdomen: Soft, Non tender - Derm Derm: Normal color, Warm and dry - Extremities Extremities: No edema - Neuro Neuro: boat captain 2-12 intact, Other (BLE weakness (leg raise), both legs drift towards bed ). No: Alert and oriented X 3 (AAOx2) Eye Opening: Spontaneous Motor: Obeys Commands PD ED PE EXPANDED - Cardiac Cardiac: Murmur Present (crescendo right 2nd ICS) Results - Vitals Vitals: Vital Signs - 24 hr 05/28/18 05/28/18 05/29/18 20:59 22:51 01:13 Temperature 36.8 C Heart Rate 60 65 91 Respiratory 15 16 23 Rate Blood Pressure 151/60 H 163/76 H 199/165 H O2 Saturation 94 96 93 Oxygen O2 Source Room air - EKG (time done) No standard instances Rate: Rate (enter#) (61) Rhythm: NSR [place]: LAD Intervals: Prolonged ID QRS: LVH Ischemia: Normal ST segments, Q waves (III, aVF) Compare to prior EKG: Unchanged from prior EKG (03/29/18) - Labs Labs: Laboratory Tests 05/28/18 05/28/18 05/28/18 21:45 21:45 21:45 WBC 6.7 RBC 3.07 L Hgb 9.0 L Hct 26.0 L MCV 84.6 MCH 29.3 MCHC 34.6 RDW 15.5 H Plt Count 312 MPV 7.7 L Neut # (Auto) 4.7 Lymph # (Auto) 1.3 L [place] # (Auto) 0.5 Eos # (Auto) 0.2 Baso # (Auto) 0.0 Absolute Nucleated RBC 0.00 Nucleated RBC % 0.0 PT 12.6 INR 1.1 APTT 21.2 L Sodium 137 Potassium 3.0 L Chloride 99 L Carbon Dioxide 27 Anion Gap 11.0 BUN 29 H Creatinine 1.7 H Estimated GFR (MDRD) 29 L Glucose 142 H Lactic Acid Calcium 8.9 Troponin I Urine Color Urine Clarity Urine pH Ur Specific [place] Urine Protein Urine Glucose (UA) Urine Ketones Urine Occult Blood Urine Nitrite Urine Bilirubin Urine Urobilinogen Ur Leukocyte Esterase Ur Microscopic Review Urine Culture Comments 05/28/18 05/28/18 05/28/18 21:45 21:45 22:40 WBC RBC Hgb Hct MCV MCH MCHC RDW Plt Count MPV Neut # (Auto) Lymph # (Auto) [place] # (Auto) Eos # (Auto) Baso # (Auto) Absolute Nucleated RBC Nucleated RBC % PT INR APTT Sodium Potassium Chloride Carbon Dioxide Anion Gap BUN Creatinine Estimated GFR (MDRD) Glucose Lactic Acid 1.4 Calcium Troponin I 0.30 Urine Color YELLOW Urine Clarity CLEAR Urine pH 5.5 Ur Specific [place] >=1.030 H Urine Protein NEGATIVE Urine Glucose (UA) NEGATIVE Urine Ketones NEGATIVE Urine Occult Blood NEGATIVE Urine Nitrite NEGATIVE Urine Bilirubin NEGATIVE Urine Urobilinogen 0.2 (NORMAL) Ur Leukocyte Esterase NEGATIVE Ur Microscopic Review NOT INDICATED Urine Culture Comments NOT INDICATED PD MEDICAL DECISION MAKING - ED course Complexity details: reviewed old records, reviewed results, re-evaluated patient, considered differential, d/w patient ED course: spouse arrived during patient's ED stay and provided more information; he says she has had similar episodes in the past, no definite cause has been found, although some episodes have correlated with UTI. Spouse says that patient is currently at her baseline mental status and is comfortable with taking her home. Departure - Departure Disposition: 01 Home, Self Care Clinical Impression: Altered mental status Qualifiers: Altered mental status type: unspecified Qualified Code(s): R41.82 - Altered mental status, unspecified Condition: Good Instructions: ED Altered Loc Follow-Up: Bill Nugent MD [Primary Care Provider] - Discharge Date/Time: 05/29/18 01:46
[2018-05-28 21:56] LABS: BASOPHILS % (AUTO) 0.7 %; EOSINOPHILS # (AUTO) 0.2 10^3/uL (0.0-0.7); EOSINOPHILS % (AUTO) 3.2 %; LYMPHOCYTES # (AUTO) 1.3 10^3/uL (1.5-3.5); LYMPHOCYTES % (AUTO) 18.6 %; MEAN CORPUSCULAR HEMOGLOBIN 29.3 pg (27.0-31.0); MEAN CORPUSCULAR HGB CONC 34.6 g/dL (32.0-36.0); MEAN CORPUSCULAR VOLUME 84.6 fL (81.0-99.0); MEAN PLATELET VOLUME 7.7 fL (7.9-10.8); MONOCYTES # (AUTO) 0.5 10^3/uL (0.0-1.0); MONOCYTES % (AUTO) 7.1 %; NEUTROPHILS # (AUTO) 4.7 10^3/uL (1.5-6.6); NEUTROPHILS % (AUTO) 70.4 %; PLT - PLATELET COUNT 312 10^3/uL (130-450); RED BLOOD COUNT 3.07 10^6/uL (4.20-5.40); RED CELL DISTRIBUTION WIDTH 15.5 % (12.0-15.0); WHITE BLOOD COUNT 6.7 x10^3/uL (4.8-10.8)
[2018-05-28 22:02] LABS: INR 1.1 (0.8-1.2); PT - PROTHROMBIN TIME 12.6 secs (9.9-12.6)
[2018-05-28 22:03] LABS: CALCIUM 8.9 mg/dL (8.5-10.3); CREATININE 1.7 mg/dL (0.4-1.0)
[2018-05-28 22:53] LABS: BILIRUBIN,URINE NEGATIVE (NEGATIVE); GLUCOSE, URINE (UA) NEGATIVE (NEGATIVE); KETONES,URINE (UA) NEGATIVE (NEGATIVE); LEUKOCYTE ESTERASE, URINE NEGATIVE (NEGATIVE); NITRITE,URINE NEGATIVE (NEGATIVE); OCCULT BLOOD,URINE NEGATIVE (NEGATIVE); PH,URINE 5.5 PH (5.0-7.5); PROTEIN,URINE NEGATIVE (NEGATIVE); UROBILINOGEN,URINE 0.2 (NORMAL) E.U./dL (NORMAL)
[2018-05-28 23:10] LABS: CLARITY,URINE CLEAR (CLEAR)
[2018-05-29 01:14] VITALS: BP 199/165
[2018-05-29] MEDS: POTASSIUM BICARB 25 MEQ TABLET PO STA (01:22)
== END 2018-05-29 01:46 | disposition home or self-care (01) ==
LOC: EDBD → MERGE 20:47 → ED 20:47
DX: R41.82 Altered mental status, unspecified (principal); I45.81 Long QT syndrome; I10 Essential (primary) hypertension
CPT/HCPCS: 36415; 80048; 81001; 81003; 83605; 84484; 85025; 85610; 85730; 87086; 93005; 99283

== ENCOUNTER 2018-08-15 13:45 | Outpatient (CLI) | payer MEDICARE, MEDICAID | END 2018-08-15 13:46 | disposition critical access hospital (66) | LOC: EMS 13:45 | PROVIDERS: ATTEND Surgery | DX: R53.1 Weakness (principal); R53.83 Other fatigue; R41.0 Disorientation, unspecified | CPT/HCPCS: A0425; A0429 ==

== ENCOUNTER 2018-09-04 12:22 | Outpatient (CLI) | payer MEDICARE, MEDICAID ==
--- NOTE | 2018-09-04 14:31 | CONSULTATION NOTE ---
Palliative Care Consultation - Referral Referring Provider: Dr Nugent ([facility]) Time of Visit: 09/04/2018. 10:40 - 11:50 Referral Reason: HTN / Pal Care - Information Sources Records reviewed: Previous records reviewed History/Review of Systems obtained from: Patient, Family, Caregiver Exam limitations: Clinical condition (Dementia, poor historian) - History of Present Illness Brief History of Present Illness: 77-year-old female with dementia and significant decline, including loss of ambulation, since January 2018. She has had numerous ED visits and hospitalizations. She lives at home, and caregiving is done by her and caregiver Mitzy, who is there daily throughout the day. Medical History: Dementia with behavior disturbance; HTN; HLD; LVH (EF 75% Apr 2017); TIA; depression; PVD (venous); dysthmic disorder; atrial fibrillation; rheumatic heart valve diseases; aortic stenosis; CKD III; osteoarthritis; GERD; recurrent UTIs. Patient was most recently hospitalized 2-17 August 2018 for commplicated UTI, dysphagia, and LIA. She was brought in to the ED after becoming limp and unrespo nsive and with increased confusion. She also had vomiting and ongoing nausea, and multiple explosive stools. C diff testing was negative. UA sample was contaminated and culture not completed. She was treated for UTI with IV ceftriaxone and oral ciprofloxacin. She had improved post-hospitalization, then around 08/30 caregiver noted vaginal discharge that caregiver describes as "pus" and starting 08/31 caregiver notes that explosive diarrhea started again, she says the diarrhea "smells like ." Caregiver had just cleaned up the patient prior to arrival of [facility], and notes that she had a good amount of "pus" discharge in the vaginal area. When patient is getting sick or a UTI, caregiver notes increased lower extremity weakness and she is unable to control her feet and starts "stumbling again." Patient has been non-ambulatory since approximately March. Patient had dysphagia in hospital and had MASTER BAKER swallow evaluation, was started on pureed diet and honey thickened liquids. Now back at home she is on regular thin liquids and fine chopped food. Caregiver confirms she follows aspiration precautions. Notes patient appears to be drinking and eating normally without choking. Patient is lying in bed during this assessment, but they will get her up after I leave. She normally spends most of the day up in her wheelchair in the living room. She also enjoys drives, and her usually takes her on a drive at least weekly. They have some difficulty getting her in the car, but so far are able to. She will be going to her daughter's house and seeing her family (children, gra ndchildren) to celebrate her birthday this weekend. Patient is alert and responds to my questions with one word replies. Processing time is delayed. Unclear how much she understands or how reliable she is as a historian. Is able to follow directions. She denies pain, nausea, SOA, burning/itching with urination. BP today is elevated: 223/78, and 210/80 when retaken. She had not yet had her BP meds this morning. HTN medications were changed during her hospitalization two weeks ago. Medical/Surgical History - Past Medical History Cardiovascular: reports: Hypertension, High cholesterol, Murmur, Valve disorder (rheumatic heart valve disease), Other (LVH - EF 75% Apr 2017. Aortic stenosis.) Respiratory: reports: None Neuro: Alzhiemer's, Dementia, CVA, Tremors (right hand) Endocrine/Autoimmune: reports: None GI: reports: GERD, Chronic diarrhea UNDERWRITING SPECIALIST: reports: None : reports: Incontinence, Chronic bladder infection, Nocturia, Frequency HEENT: reports: Chronic vision loss, Chronic hearing loss Psych: reports: Depression Musculoskeletal: reports: Osteoarthritis, Paraplegia, Fatigue Derm: reports: None MRSA Hx?: No - Past Surgical History Derm: reports: Skin cancer surgery - Substance History Tobacco Details: Cigarettes (Former smoker. Quit 25 years ago.) Social History - Living Situation Living arrangement: At home Living Situation: With spouse/s.o. Support System: Patient and her , Alfred, have been 35 years. She's originally fro [place]. They've been on [place] about 30 years. They have no children together. Patient has 3 adopted daughters, 1 in [place]; 1 in [facility], 1 in [place]. Alfred and the daughter in [place] are estranged. 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 Paid caregiver (through [facility]) is Mitzy Pedroza [phone], who comes daily, several visits throughout the day. Mitzy started last February or March. She had previously provided caregiving for the patient about two years ago. The [facility] lead case manager is Char Smith [phone]. Family History - Family History Family History Comment/Other: Family history non-contributory. Medications/Allergies - Medications Home Medications: Ambulatory Orders Medication Instructions Recorded Confirmed FLUoxetine [PROzac] 10 mg ORAL DAILY 03/29/18 09/04/18 Acetaminophen [Tylenol] 650 mg PO Q4HR PRN tablet 08/20/18 09/04/18 Ferrous Gluconate 240 mg PO DAILY #30 tablet 08/20/18 09/04/18 Folic Acid 1 mg PO DAILY #30 tablet 08/20/18 09/04/18 Aspirin 81 mg PO DAILY 09/04/18 09/04/18 Carvedilol [Coreg] 25 mg PO BIDWM 09/04/18 09/04/18 Mupirocin 2% 1 ea TOP BID PRN 09/04/18 Nystatin Cream [Mycostatin Cream] 1 ea TOP BID PRN 09/04/18 09/04/18 - Allergies Allergies/Adverse Reactions: Allergies Allergy/AdvReac Type Severity Reaction Status Date / Time No Known Drug Allergies Allergy Verified 05/28/18 22:39 Review of Systems - Constitutional Constitutional: reports: Fatigue, Weakness, Poor appetite, Weight loss (Weight loss of 30 lbs (15%) since September 2017. Current BMI is 32.7. Hospital/ED weights: 76kg (167 lb) 08/16/18. 68 kg (149 lbs) 05/28/18. 81.5kg (179 lbs) 05/03/19. 88.7kg (195 lbs) 03/29/18. 90.7kg (199 lbs) 10/01/17. 90.72 (199 lbs) 05/10/17.) - Ears, Nose & Throat Ears, Nose & Throat: reports: Hearing loss - Cardiovascular Cardiovascular: reports: Edema, Decr. exercise tolerance - Respiratory Respiratory: denies: Cough, SOB at rest - Gastrointestinal Gastrointestinal: reports: Diarrhea, Poor appetite. denies: Abdominal pain, Abdominal distention, Nausea - Genitourinary Genitourinary: reports: Frequency, Incontinence, Urethral discharge (white, creamy discharge. Caregiver described it as pus, but had cleaned it up prior to this exam). denies: Dysuria - Musculoskeletal Musculoskeletal: reports: Muscle weakness, Assistive devices, Transfer issues - Integumentary Integumentary: reports: Rash (Groin. Diaper rash) - Neurological Neurological: reports: General weakness, Memory problems, Pre-existing deficit - Hematologic/Lymphatic Hematologic/Lymphatic: reports: Anemia (On folic acid and ferrous gluconate) - All Other Systems All Other Systems: reports: Reviewed and negative Physical Exam - Vital Signs Temperature: 96.3 F Pulse Rate: 60 O2 Saturation: 99 (room air) Blood Pressure: 223/78 (wrist cuff) - Physical Exam General Appearance: positive: No acute distress, Alert Eyes Bilateral: positive: No lid inflammation, Conjunctivae nml, No scleral icterus ENT: positive: Dry mucous membranes (dry lips) Neck: positive: No JVD Cardiovascular: positive: Regular rate & rhythm, No gallop, Systolic murmur (09/16) Respiratory: positive: Chest non-tender, No respiratory distress, Breath sounds nml, Diminished in bases (in L base only. R is fine) Abdomen: positive: Non-tender, Soft, Abnml bowel sounds (no bowel sounds, possibly due to body habutus), Obese. negative: Organomegaly, Distended Skin: positive: Rash (Trace redness in groin. Diaper rash on buttocks, gluteal cleft with signs of fungal infection) Extremities: positive: Pedal edema Neurologic/Psychiatric: positive: Disoriented to time, Flat affect Palliative Care - POLST Patient has POLST: Yes POLST Status: DNR, Comfort Measures Pain: No pain Tiredness/Fatigue: Moderate (4-6) Nausea: None Anxiety: None Dyspnea: None Anorexia: Mild (1-3) Sleep: Sleeps well Constipation: Comment (loose stools) Performance Status: Lost ambulatory ability around March 2019, now wheelchair bound. Unable to transfer without help LEs become weaker when she is getting sick or UTI Can feed herself intermittently One-word responses, not verbalizing today - Palliative Care Discussion: Spouse had originally told hospitalists, at previous hospitalization, that he wanted full code, but did sign a new POLST for DNR and comfort care. Today he states his wish is to keep the patient at home, until end of life. He asked about what that would look like, so we discussed what could be expected (slow decline, "car running out of gas," with possible "crashes off the bakari" - - respiratory, traumatic fracture following a fall, etc). We did not specifically discuss hospice. Spouse admitted he knew nothing at all about palliative care or hospice, and Mitzy the electrical service technician knew a bit. He says he is handling the best he can at this time, and wants to see her remain at home. He acknowledges he would not be able to do this if it weren't for Mitzy. She is here daily, and lives down the street; she says it's easy. She is here several times per day doing the hands-on caregiving. The patient does enjoy car rides around [place], and this weekend her grandson will pick her up from home and take her to the home of her daughter who lives in [place]. She will celebrate her birthday with her family. Alfred the spouse will not be going; there is a rift between this daughter and Alfred. Mitzy reports that the ice cream freezer helper said she would be able to obtain more hours for the patient as her care needs increase in order to keep the patient at home as long as possible. They inquired about respite care, I recommended they start with the lead case manager to get information. Spouse wants to be able to have a break, especially in winter; the [place] difficult for him, [place] The spouse doesn't have family nearby (his children live elsewhere), nor other social support networks. He says it's only his . And so he is very grateful and relieved for the support and help provided by Mitzy. Results - Lab Results Lab results reviewed: Yes Lab and Imaging Results: WBC 7.9 Hgb 10.0 L Hct 29.0 L Plt 369 Na 37 Cl 102 K+ 3.9 HCO3 23 Gluc 159 BUN 29 H Cr 1.6 H GFR 31 Impression and Recommendations - Palliative Care Impression: 77-year-old female with dementia and significant decline, including loss of ambulation, since January 2018. She has had numerous ED visits and hospitalizations. Her chronic diarrhea is active; and she has a vaginal fungal infection. HTN medications were recently changed and today BP is elevated, with SBP over 200. Recommendations/Counseling Done: Dementia with behaviors: Increased weakness, and steady decline with weight loss, about 15% since September. Patient's BMI is still 32.7. Continue the previously prescribed fluoxetine. HTN: BP elevated today: 223/80 with wrist cuff; 210/80 with arm cuff. The caregiver reports she hadn't yet given the pt her BP meds this morning. She called later in the day to report the BP was 177/96 some time after BP med was given. The patient had been taken off lisinopril in the hospital and started on carvedilol 12.5mg BID. I will increase carvedilol to 25mg BID; I called Dr Nugent's office and spoke with his nurse regarding this. Vaginal candidiasis: Caregiver notes discharge started 08/30. Ordered fluconazole 150mg tablet one single dose. Take another single dose if not cleared after 3-5 days. Moisture associated dermatitis (Adult diaper rash): Recommended to start Zack Antifungal Barrier Cream BID-TID since the rash has signs of fungal infection. Family to purchase it OTC. Gave the information to spouse over the phone. Chronic diarrhea: Patient has ongoing, intermittent diarrhea. She was tested negative for C diff infection in the hospital. Diarrhea restarted on 08/31. Monitor, and if it continues into next week, re-test for C diff. Advance care planning: POLST was recently made DNR and comfort care. Spouse's goal is to take care of the patient at home through end of life. Both the patient and the spouse are currently well supported by Mitzy [facility] caregiver, who comes daily throughout the day. Patient's family lives nearby but is not closely involved in patient's care. No SW or Internet Programmer services required at this time. Follow up next week: candidiasis, BP, dermatitis, diarrhea/testing for C diff. Time Spent: 70 minutes were spent with more than 50% of the time spent on counseling, education, anticipatory guidance, and coordination of care.
== END 2018-09-04 12:23 | disposition home or self-care (01) ==
LOC: PC 12:22
PROVIDERS: ATTEND Nurse Practitioner
DX: Z51.5 Encounter for palliative care (principal); G30.9 Alzheimer's disease, unspecified; F02.81 Dementia in other diseases classified elsewhere, unspecified severity, with behavioral disturbance; I12.9 Hypertensive chronic kidney disease with stage 1 through stage 4 chronic kidney disease, or unspecified chronic kidney disease; N18.3 Chronic kidney disease, stage 3 (moderate); B37.3 Candidiasis of vulva and vagina; L22 Diaper dermatitis; K52.9 Noninfective gastroenteritis and colitis, unspecified; R32 Unspecified urinary incontinence; K21.9 Gastro-esophageal reflux disease without esophagitis; R13.10 Dysphagia, unspecified; D64.9 Anemia, unspecified; Z99.3 Dependence on wheelchair; Z87.440 Personal history of urinary (tract) infections; Z79.899 Other long term (current) drug therapy; Z87.891 Personal history of nicotine dependence; Z66 Do not resuscitate
CPT/HCPCS: 99344

== ENCOUNTER 2018-09-30 14:45 | Outpatient (CLI) | payer MEDICARE, MEDICAID ==
--- NOTE | 2018-09-30 21:02 | CONSULTATION NOTE ---
Palliative Care Follow Up - Referral Referring Provider: Dr Nugent Time of Visit: Fri09/30/2018. 14:45 - 15:40 Referral setting: Home Referral Reason: Skin breakdown - Information Sources Records reviewed: Previous records reviewed History/Review of Systems obtained from: Patient, Caregiver Exam limitations: Clinical condition (cognitive deficits; poor historian) - History of Present Illness Update Brief HPI Update: FACE TO FACE FOR HOME HEALTH CHANNEL DIRECTOR and HH AID Patient has small stage II wounds on coccyx and gluteal cleft due to bedbound/chairbound status and incontinence. She also has stage I areas on R heel, both laterally and medially. She is non-weight bearing and homebound, and requires RN for assessment and management of wounds and also HH Aid for hygiene in insalubrious environment. Patient has AUGUSTUS caregiver in the home several hours at a time throughout the day. 77-year-old female with dementia and significant decline, including loss of ambulation, since January 2018. She has had numerous ED visits and hospitalizations. She lives at home, and caregiving is done by her and caregiver Mitzy, who is there daily throughout the day. Medical History: Dementia with behavior disturbance; HTN; HLD; LVH (EF 75% Apr 2017); TIA; depression; PVD (venous); dysthmic disorder; atrial fibrillation; rheumatic heart valve diseases; aortic stenosis; CKD III; osteoarthritis; GERD; recurrent UTIs. Caregiver reports patient has been lethargic, she thinks it was the increase in carvedilol dosing. It was 12.5mg BID; ACCOUNTANT CLERK increased it to 25mg BID due to SBP 200+ at initial visit.. Patient has been re0, 162/89fusing medications, including BP med (carvedilol), caregiver noted that her lethargy improved after a few days. BP recorded by caregiver during the last several days has been elevated between 09/26 -09/30 when the patient was refusing the lisinopril: 155/91, 131/95, 158/70, 162/89. Patient has new skin breakdown: R heel, medially and laterally, and in tyson- area, a yellowish, encrusted area adjacent to labia on R thigh, and greyish- white plaque on R labia. She also has two small stage II (open) wounds in gluteal cleft/coccxy. Patient is up in her wheeelchair in the main room of house most days from about 930-1000 until [id number] when caregiver puts her to bed. Caregiver and have problems transferring/positioning her properly in wheelchair; she ends up sitting on the coccyx instead of ischeal tuberosities. They do not have booties nor have been floating her heels. Provided education on floating the heels and recommended purchasing heel-protection soft booties. Patient's diarrhea at last visit has cleared, but it appears she is starting another cycle of loose stools. She is refusing a food and medications. Caregiver reports no constipation, recent incidence of loose stools (suggested adding fiber/psyllium to water, giving it daily. Pt denies SOA, but is poor historian, mostly answer's "I don't know." Pt complains of pain when caregiver moves her legs. Suggested Tylenol 650mg PO twice daily as needed. They don't have any Tylenol in the house. The house is not salubrious environment. It's dirty, overcrowded, dim light in the patient's room, hard to navigate. Pt has a hospital bed; caregiver reports that it was extremely difficult to move it in there. There is no space in the bedroom for a Dayana or any other lift for the patient. Caregiver doesn't think they would agree to move the patient's bed out of this room to another part of the house. Pt's is not present at today's visit, so no opportunity to talk to him about goals of care. ACCOUNTANT CLERK's voicemails to caregiver and to were left 09/17/18 and were not answered. Caregiver said she didn't receive it. She does have a new mobile number; it was left on her former number. Social History - Living Situation Living arrangement: At home Living Situation: With spouse/s.o. Support System: Patient and her , Alfred, have been 35 years. She's originally from [place]. They've been on [place] about 30 years. They have no children together. Patient has 3 adopted daughters, 1 in [place]; 1 in [facility], 1 in [place]. Alfred and the daughter in [place] are estranged. 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 Paid caregiver (through [facility]) is Mitzy Pedroza [phone], who comes daily, several visits throughout the day. Mitzy started providing caregiving February or March 2018. She is also a friend of the patient's. Mitzy had previously provided caregiving for the patient about two years ago. The [facility] skilled nursing case manager is Char Smith [phone]. Medications/Allergies - Medications Home Medications: Ambulatory Orders Medication Instructions Recorded Confirmed FLUoxetine [PROzac] 10 mg ORAL DAILY 03/29/18 09/04/18 Acetaminophen [Tylenol] 650 mg PO Q4HR PRN tablet 08/20/18 09/30/18 Ferrous Gluconate 240 mg PO DAILY #30 tablet 08/20/18 09/04/18 Folic Acid 1 mg PO DAILY #30 tablet 08/20/18 09/04/18 Aspirin 81 mg PO DAILY 09/04/18 09/30/18 Carvedilol [Coreg] 12.5 mg PO BIDWM 09/04/18 09/30/18 Mupirocin 2% 1 ea TOP BID PRN 09/04/18 Nystatin Cream [Mycostatin Cream] 1 ea TOP BID PRN 09/04/18 09/04/18 - Allergies Allergies/Adverse Reactions: Allergies Allergy/AdvReac Type Severity Reaction Status Date / Time No Known Drug Allergies Allergy Verified 05/28/18 22:39 Review of Systems - Constitutional Constitutional: reports: Fatigue, Weakness, Poor appetite, Weight loss (Had weight loss of 30 lbs since September 2017. Most recent weight was 167 lb 08/16/18, BMI 32.7 She was 199 lbs 05/10/17. Patient has poor appetite, refuses food often, remains overweight at this time. Have HH start arm circumference measurements.), Other (Lethargy reported by caregiver. Starting to improve since she has been refusing meds, carvedilol) - Ears, Nose & Throat Ears, Nose & Throat: reports: Hearing loss - Cardiovascular Cardiovascular: reports: Decr. exercise tolerance - Respiratory Respiratory: denies: Cough - Gastrointestinal Gastrointestinal: reports: Diarrhea (history of loose stools) - Genitourinary Genitourinary: reports: Incontinence - Musculoskeletal Musculoskeletal: reports: Limited range of motion, Assistive devices (wheelchair), Transfer issues (No space in her room for a Dayana lift), Other (Complains of pain when moving leg.) - Integumentary Integumentary: reports: Rash (periarea), Lesions (crust on vulva/labia) - Neurological Neurological: reports: General weakness, Memory problems, Pre-existing deficit - Hematologic/Lymphatic Hematologic/Lymphatic: reports: Anemia (folic acid, ferrous gluconate) - Other Findings Other Findings: Limited ROS Physical Exam - Vital Signs Temperature: 96.0 F Pulse Rate: 62 O2 Saturation: 95 Blood Pressure: 189/80 - Physical Exam General Appearance: positive: No acute distress, Alert, Other (Has stunned, confused look. It may be her baseline) Eyes Bilateral: positive: Normal inspection ENT: positive: No signs of dehydration Neck: positive: Trachea midline Cardiovascular: positive: Regular rate & rhythm, No gallop, Systolic murmur (3/6) Respiratory: positive: Chest non-tender, No respiratory distress, Diminished in bases (L side) Abdomen: positive: Obese Skin: positive: Pressure wound (R heel medial and lateral redness; two small stage II wounds in gluteal cleft/coccyx. Redness in coccyx region), Other (Crusty lesions on R labia: one yellowish; one greyish. Will treat with Nystatin.) Extremities: positive: Pedal edema (+2 R foot, less on L foot. No compression. Not elevated during day.) Neurologic/Psychiatric: positive: Disoriented to time, Flat affect Palliative Care - POLST Patient has POLST: Yes POLST Status: DNR, Comfort Measures - Palliative Care Discussion: Patient's spouse not present. At initial visit he states his goal is to continue to take care of the patient in the home. He acknowledged this would not be possible without outside care giving, currently provided by Mitzy. He often leaves when she is here, in order to have a break. [place] Per Mitzy, he does have a least one friend, a man Mitzy refers to as "Papa someone." The spouse was out with him today. They were going to check with their [facility] communications officer about qualifying for respite care. Impression and Recommendations - Palliative Care Impression: 77-year-old female with dementia and significant decline, including loss of ambulation, since January 2018 and numerous ED visits and hospitalizations. She is bedbound and wheelchair bound and functionally incontinent of bowel and bladder, and has stage II pressure wounds in gluteal cleft and stage I pressure wounds R heel. She would benefit from Home Health Nursing for wound assessment and kashif carlos and HH Aid for hygiene purposes Recommendations/Counseling Done: Dementia with behaviors: Intermittent periods of lethargy and weakness, seems to have improved recently. Patient has also been refusing some meds. Continue fluoxetine (the most energizing SSRI). Can consider decreasing/tapering if patient/spouse agree. HTN: Patient refusing medications, including carvedilol and caregiver notes patient's lethargy improved over the past few days. BPs were elevated the past 4-5 days while pt was not taking the carvedilol (SBP 150-160s). Decrease the carvedilol back to 12.5mg BID (Palliative Care had increased it to 25mg BID on previous visit, with the agreement of PCP). Stage II coccyx, gluteal cleft wounds: Patient has small (approx 1.5 cm0 stage II wounds on coccyx and gluteal cleft due to bedbound/chairbound status and incontinence. She also has stage I areas on R heel, both laterally and medially. She is non-weight bearing and homebound. This is a referral for HH RN for assessment and management of wounds and also HH Aid for hygiene in insalubrious environment. Perineal crusting/lesions: New crusty lesions on R labia and groin fold; one yellowish, one grayish-white. Possibly fungal in appearace; apply Nystatin BID and monitor for improvement Pain in R lower extremity: Patient indicates pain in R leg with repositioning and transfers. Start Tylenol 650mg BID routinely and monitor for improvement. Moisture associated dermatitis (Adult diaper rash): Spouse has not obtained Zack Antifungal Barrier Cream (recommended by Palliative Care to be applied BID- TID. They are using generic zinc barrier cream. Chronic diarrhea: Intermittent. She had a negative C diff test during her last hospitalization. Palliative Care ACCOUNTANT CLERK had previously written order for a follow up C diff test, and provided supplies to caregiver to obtain a sample. Patient's stools have been formed, so testing was not indicated. She is starting to have loose stools again. Recommend adding psyllium/fiber powder, or fiber tablets and also ensure adequate/increased fluid intake if fiber intake is increased Advance care planning: POLST is DNR and comfort care. Spouse not present for today's visit but has previously stated he wants to take care of the patient at home through end of life. Mitzy, AUGUSTUS caregiver, now provides caregiving support 3x throughout the day; she lives close by. Time Spent: 55 minutes were spent with more than 50% of the time spent on counseling, education, and coordination of care.
== END 2018-09-30 14:46 | disposition home or self-care (01) ==
LOC: PC 14:45
PROVIDERS: ATTEND Nurse Practitioner
DX: Z51.5 Encounter for palliative care (principal); Z74.01 Bed confinement status; R32 Unspecified urinary incontinence; F03.91 Unspecified dementia, unspecified severity, with behavioral disturbance; I12.9 Hypertensive chronic kidney disease with stage 1 through stage 4 chronic kidney disease, or unspecified chronic kidney disease; N18.3 Chronic kidney disease, stage 3 (moderate); Z79.899 Other long term (current) drug therapy; E66.3 Overweight; Z68.32 Body mass index [BMI] 32.0-32.9, adult; R63.4 Abnormal weight loss; D64.9 Anemia, unspecified; L89.611 Pressure ulcer of right heel, stage 1; L89.152 Pressure ulcer of sacral region, stage 2; Z66 Do not resuscitate; R15.9 Full incontinence of feces; N94.9 Unspecified condition associated with female genital organs and menstrual cycle; L98.9 Disorder of the skin and subcutaneous tissue, unspecified; M79.604 Pain in right leg; L22 Diaper dermatitis; K52.9 Noninfective gastroenteritis and colitis, unspecified; R53.83 Other fatigue; T44.7X6A Underdosing of beta-adrenoreceptor antagonists, initial encounter; T49.0X6A Underdosing of local antifungal, anti-infective and anti-inflammatory drugs, initial encounter; Z91.128 Patient's intentional underdosing of medication regimen for other reason
CPT/HCPCS: 99349

== ENCOUNTER 2018-11-25 16:08 | Outpatient (CLI) | payer MEDICARE, MEDICAID ==
--- NOTE | 2018-11-25 16:23 | CONSULTATION NOTE ---
Palliative Care Follow Up - Referral Referring Provider: Dr Nugent Time of Visit: Fri11/25/2018. 10:00 - 11:00 Referral setting: Home Referral Reason: Dementia / debility - Information Sources Records reviewed: Previous records reviewed History/Review of Systems obtained from: Patient, Family, Caregiver Exam limitations: Clinical condition (Dementia / mostly non-verbal) - History of Present Illness Update Brief HPI Update: 78-year-old female with dementia and significant decline, including loss of ambulation, since January 2018. Patient had 3 ED visits in 2018 (Sep, Mar, Apr, May) for AMS or decreased LOC. She was hospitalized Aug 2018 for complicated UTI, LIA, and dysphagia. She lives at home with her , with extensive help from AUGUSTUS caregiver Mitzy, who lives nearby and is able to be there daily throughout the day. Medical History: Dementia with behavior disturbance; HTN; HLD; LVH (EF 75% Apr 2017); TIA; depression; PVD (venous); dysthmic disorder; atrial fibrillation; rheumatic heart valve diseases; aortic stenosis; CKD III; osteoarthritis; GERD; recurrent UTIs. Patient is awake, alert, sitting up in her wheelchair. She says she remembers me. Gives short answers to my questions, responses of only a few words, clearly lacking full comprehension but able to interact appropriately to a limited extent. Patient has been generally stable within her declining status. Caregiver reports a pattern and she has started to recognize it. She's stable for awhile. Perhaps has an episode of vomit or diarrhea. She also has intermittent episodes that may be seizures or TIA: eyes go up to the ceiling, when she's in the wheelchair she tilts to the left. Then she goes back to normal. Giving her regular milk can help it. has not pursued further workup. CT scans done during hospitalizations, ED visits are unremarkable. Patient's previous wounds have cleared up: a small cocxy openig, R heel blister, R lateral wound on foot. Caregiver used A&D on it and it's cleared. Patient gets periodic candidal rash in groin and under breasts; it's cleared up by nystatin cream. Wrote a new script for it today. Patient refuses her medications frequently, even served in food. She doesn't like the taste. Caregiver has requested no new medications or pills because getting her to take her meds is their main fight. She mostly gives her the fluoxetine/Prozac and carvedilol and has stopped the supplements and aspirin. Caregiver reports she gets patient out of bed daily and she sits in the wheelchair in the living room throughout the day until bedtime. She hasn't been elevating her LEs, but counselled that she should, for the R lower extremity edema. R knee is also painful. Caregiver has a certain way she positions the patient in bed for sleep at night, putting pillows and wedges at pelvis, between her legs, an under knees to support the knees. The legs are also elevated at night, which improves the edema. She sleeps ok, her appetite is variable, on a bad day it's 10% oral intake; on a good day, it's 100%. She has been losing weight by appearance; they haven't put her on a scale. Will start arm circumference measurements. When patient shows signs of depression, her takes her on rides in his truck (spouse and caregiver transfer her into the car). Other times they take her outside to the garden. Social History - Living Situation Living arrangement: At home Living Situation: With spouse/s.o. Support System: Patient and her , Alfred, have been 35 years. She's originally from [place]. They've been on [place] about [place] years. They have no children together. Patient has 3 adopted daughters, 1 in [place]; 1 in [facility], 1 in [place]. Alfred and the daughter in [place] are estranged. 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 Paid caregiver (through [facility]) is Mitzy Pedroza [phone], who comes daily, several visits throughout the day. Mitzy started providing caregiving February or March 2018. She is also a friend of the patient's. Mitzy had previously provided caregiving for the patient about two years ago. The [facility] piano case maker is Char Smith [phone]. Medications/Allergies - Medications Home Medications: Ambulatory Orders Medication Instructions Recorded Confirmed FLUoxetine [PROzac] 10 mg ORAL DAILY 03/29/18 11/25/18 Acetaminophen [Tylenol] 650 mg PO Q4HR PRN tablet 08/20/18 11/25/18 Carvedilol [Coreg] 12.5 mg PO BIDWM 09/04/18 11/25/18 Mupirocin 2% 1 ea TOP BID PRN 09/04/18 11/25/18 Nystatin Cream [Mycostatin Cream] 1 ea TOP BID PRN 09/04/18 11/25/18 - Allergies Allergies/Adverse Reactions: Allergies Allergy/AdvReac Type Severity Reaction Status Date / Time No Known Drug Allergies Allergy Verified 05/28/18 22:39 Review of Systems - Constitutional Constitutional: reports: Fatigue, Weakness, Poor appetite (fluctuates), Weight loss (R arm circumference 33cm, including flaccid triceps muscle. Most recent weight was 167 lbs 08/16/18, BMI 32.7. She weighed 199 lbs 05/10/17.) - Ears, Nose & Throat Ears, Nose & Throat: reports: Hearing loss - Cardiovascular Cardiovascular: reports: Decr. exercise tolerance - Gastrointestinal Gastrointestinal: reports: Diarrhea (h/o loose stools, intermittent), Vomiting (h/o intermittent vomiting), Poor appetite - Genitourinary Genitourinary: reports: Incontinence - Musculoskeletal Musculoskeletal: reports: Limited range of motion, Joint pain (Tenderness in R knee with movement), Assistive devices (wheelchair), Transfer issues, Other (no room in bedroom for Dayana lift.) - Integumentary Integumentary: reports: Rash (interimittent candidiasis rash in groin, under breasts, Nystatin cream clears it), Other (heel blister an R lateral foot wound are resolved) - Neurological Neurological: reports: Memory problems, Pre-existing deficit, Seizures - Psychiatric Psychiatric: reports: Depression - Other Findings Other Findings: Limited ROS Physical Exam - Vital Signs Temperature: 96.8 F Pulse Rate: 54 O2 Saturation: 96 Blood Pressure: 174/73 - Physical Exam General Appearance: positive: No acute distress, Other (appears wide-eyed, slightly stunned, seems to be baseline when SYRUP MAKER COOK is assessing her) Eyes Bilateral: positive: Normal inspection ENT: positive: No signs of dehydration Neck: positive: Trachea midline Cardiovascular: positive: Regular rate & rhythm, Systolic murmur (2/6) Skin: positive: Pallor, Dryness Extremities: positive: Pedal edema (R foot only, 2+) Neurologic/Psychiatric: positive: Disoriented to time, Flat affect Palliative Care - POLST Patient has POLST: Yes POLST Status: DNR, Comfort Measures Pain: Location (R knee), Comment (Refuses medications. Caregiver applies heat, supports the knee at night) Anorexia: Moderate (4-6) Sleep: Sleeps well Constipation: No Performance Status: Unable to weight bear or ambulate since January 2018 Full assistance required for all ADLs and personal care Spends day in wheelchair in living room Able to feed self Verbal ability limited to a few words FAST 7D - Palliative Care Discussion: admits he needs respite care so he can get away. He's burned out, suffering physically with medical problems. He would love to go on a fishing trip. He would also like to leave [place] during the winter [place] We discussed respite and that he needs to follow up with the [facility] piano case maker, Char Smith, about the respite benefit. While his was still able to comprehend, he had promised her that he would keep her at home and not put her into a facility. He admits that without Mitzy's daily caregiving, he would not be able to handle this. He realizes that as the patient's care needs increase there may come a time whenhe is no longer able to continue to care for her at home. We talked about transitions and continuum of care. I suggested he keep that in mind as her condition deteriorates. Also discussed comfort care (her POLST is DNR and comfort care), and Hospice service. He is uncertain what he wants to do at this point if an acute crisis arises and she would need hospitalization. He has not thought about it up to this point, and will need some time to consider. Provided education on the Hospice service. Also spoke about cloth shader and social work services that he is entitled to as the spouse of a palliative care patient. Results - Lab Results Lab results reviewed: Yes Impression and Recommendations - Palliative Care Impression: 78-year-old female with dementia and significant decline, including loss of ambulation, since January 2018 and numerous ED visits and hospitalizations. She is bedbound and wheelchair bound and functionally incontinent of bowel and bladder. Cognition and functionality are stable but with steady decline. Palliative Care will continue to provide support and monitoring for eventual transition to Hospice when appropriate. Recommendations/Counseling Done: Dementia with behaviors: Stable with general, slow decline. Patient doesn't like taking medications, it's now down to two (fluoxetine and carvedilol). Continue fluoxetine (the most energizing SSRI). HTN: Patient refuses medications much of the time. Caregiver still administers carvedilol as often as possible. BP today 174/73. In Aug SBP had been over 200 Stage II coccyx, gluteal cleft wounds: These cleared up and the caregiver/family didn't go through with the Home Health RN service that was ordered after the September Palliative Care Visit. Pain in R lower extremity: At baseline. Patient refuses most pills, but sometimes accepts Tylenol. Caregiver applies heat at night, also positions her R leg/knee in bed, supports it with pillows, and has found the optimum arrangement. Patient rarely gives sign of pain, apart from when RLE being repositioned. Moisture associated dermatitis (Adult diaper rash): Spouse couldn't find Zack Antifungal Barrier Cream recommended by Palliative Care. They use A&D zinc barrier cream, have good results. Caregiver also used it on the foot wounds, with good results Chronic diarrhea: Intermittent, has a pattern of starting intermittent loose stools and/or vomiting, which then clears up for a period. Drinking regular milk helps. Have provided education on using psyllium/fiber powder, fiber tablets and and generous fluid intake daily. Advance care planning: POLST is DNR and comfort care. Spouse is exhausted, would like to get away for a fishing trip this summer, and [place] Counseled him to follow up with AUGUSTUS assembler semiconductor Char Smith about whether he qualifies for respite care. His goal is to keep the patient at home, but he is starting to consider moving her to a facility when her care needs increase. He is undecided/noncommittal about comfort care vs sending her to ED/hospital if needed for stabiliza tion/treating reversible conditions. Did discuss Hospice service and comfort care. Will continue the conversation on goals of care; he is uncertain at this point, with caregiver burnout on one hand and the stress of his own physical conditions, and feeling responsible to keep his promise and take care of the patient. Counselled him on palliative care services available for him: cloth shader, social work associate. Time Spent: 60 minutes were spent with more than 50% of the time spent on counseling, education, providing anticipatory guidance and coordination of care with caregiv er and spouse.
== END 2018-11-25 16:09 | disposition home or self-care (01) ==
LOC: PC 16:08
PROVIDERS: ATTEND Nurse Practitioner
DX: Z51.5 Encounter for palliative care (principal); F03.91 Unspecified dementia, unspecified severity, with behavioral disturbance; I12.9 Hypertensive chronic kidney disease with stage 1 through stage 4 chronic kidney disease, or unspecified chronic kidney disease; N18.3 Chronic kidney disease, stage 3 (moderate); M25.561 Pain in right knee; B37.2 Candidiasis of skin and nail; K52.9 Noninfective gastroenteritis and colitis, unspecified; F32.9 Major depressive disorder, single episode, unspecified; Z91.14 Patient's other noncompliance with medication regimen; H91.90 Unspecified hearing loss, unspecified ear; R32 Unspecified urinary incontinence; R56.9 Unspecified convulsions; Z66 Do not resuscitate; Z99.3 Dependence on wheelchair; Z87.440 Personal history of urinary (tract) infections; Z86.73 Personal history of transient ischemic attack (TIA), and cerebral infarction without residual deficits
CPT/HCPCS: 99350

== ENCOUNTER 2019-01-21 10:31 | Outpatient (CLI) | payer MEDICARE, MEDICAID | END 2019-01-21 10:32 | disposition critical access hospital (66) | LOC: EMS 10:31 | PROVIDERS: ATTEND Surgery | DX: M79.606 Pain in leg, unspecified (principal); R53.1 Weakness | CPT/HCPCS: A0425; A0428 ==

== ENCOUNTER 2019-01-21 10:41 | Emergency (ER) | payer MEDICARE, MEDICAID ==
[2019-01-21 11:26] LABS: BILIRUBIN,URINE NEGATIVE (NEGATIVE); GLUCOSE, URINE (UA) NEGATIVE (NEGATIVE); KETONES,URINE (UA) NEGATIVE (NEGATIVE); LEUKOCYTE ESTERASE, URINE MODERATE (NEGATIVE); NITRITE,URINE POSITIVE (NEGATIVE); OCCULT BLOOD,URINE MODERATE (NEGATIVE); PH,URINE 5.5 PH (5.0-7.5); PROTEIN,URINE TRACE mg/dL (NEGATIVE); UROBILINOGEN,URINE 0.2 (NORMAL) E.U./dL (NORMAL)
[2019-01-21 11:29] LABS: CLARITY,URINE CLEAR (CLEAR)
[2019-01-21 11:43] LABS: BACTERIA,URINE Moderate /HPF (None Seen); SQUAMOUS EPITHELIAL CELL,UR FEW Squamous (<= Few); WBC CLUMPS,URINE PRESENT
[2019-01-21] MEDS ORDERED: cefTRIAXone 1 GM in SODIUM CHLORIDE 0.9% MINIBAG 100 ML IV STA (11:51)
--- NOTE | 2019-01-21 12:02 | ED Physician Documentation ---
PD HPI FEMALE - Stated complaint Stated Complaint: LEG PX - Chief complaint Chief Complaint: General - History obtained from History obtained from: Patient, Family, EMS - History of Present Illness Timing - onset: Today Timing - duration: Hours Timing - details: Gradual onset, Still present, Waxing and waning Associated symptoms: Urinary frequency, Other (leg pains) Contributing factors: No: Similar symptoms before: Diagnosis (UTI) Recently seen: Not recently seen - Additional information Additional information: 78-year-old female with history of advanced dementia has developed a change in her mental status this morning and she is complaining of some leg pain. Her is historian, he is slow at this, and he reports that she does not get herself out of bed she is not able to stand for pivot transfer and all transfers are done by carrying and lifting. There is a caregiver who has recently quit. The patient is not of much help for history. The indicates a change in her usual strength and interaction similar to what has happened before with UTI. Medical non-compliance is present, the patient is comfort measures and the indicates he is not able to care for her at home. Review of Systems Constitutional: reports: Myalgias, Weight Loss. denies: Fever Eyes: denies: Decreased vision Ears: denies: Ear pain Nose: denies: Rhinorrhea / runny nose, Congestion Throat: denies: Sore throat Cardiac: denies: Chest pain / pressure, Palpitations Respiratory: denies: Dyspnea, Cough GI: reports: Abdominal Pain, Nausea : reports: Dysuria Skin: denies: Rash Musculoskeletal: reports: Extremity pain. denies: Neck pain, Back pain Neurologic: reports: Generalized weakness. denies: Focal weakness, Numbness PD PAST MEDICAL HISTORY - Past Medical History Cardiovascular: Hypertension, High cholesterol, Murmur, Valve disorder (rheumatic heart valve disease), Other (LVH - EF 75% Apr 2017. Aortic stenosis.) Respiratory: None Neuro: Alzhiemer's, Dementia, CVA, Tremors (right hand) Endocrine/Autoimmune: None GI: GERD, Chronic diarrhea PRESSURE TESTING TECHNICIAN: None : Incontinence, Chronic bladder infection, Nocturia, Frequency HEENT: Chronic vision loss, Chronic hearing loss Psych: Depression Musculoskeletal: Osteoarthritis, Paraplegia, Fatigue Derm: None - Past Surgical History Past Surgical History: Yes Derm: Skin cancer surgery - Present Medications Home Medications: Ambulatory Orders Medication Instructions Recorded Confirmed FLUoxetine [PROzac] 10 mg ORAL DAILY 03/29/18 11/25/18 Acetaminophen [Tylenol] 650 mg PO Q4HR PRN tablet 08/20/18 11/25/18 Carvedilol [Coreg] 12.5 mg PO BIDWM 09/04/18 11/25/18 Mupirocin 2% 1 ea TOP BID PRN 09/04/18 11/25/18 Nystatin Cream [Mycostatin Cream] 1 ea TOP BID PRN 09/04/18 11/25/18 Sulfamethoxazole/Trimethoprim 1 each PO BID #14 tablet 01/21/19 [Sulfamethoxazole-Tmp Ds Tablet] - Allergies Allergies/Adverse Reactions: Allergies Allergy/AdvReac Type Severity Reaction Status Date / Time No Known Drug Allergies Allergy Verified 05/28/18 22:39 - Social History Does the pt smoke?: No Smoking Status: Never smoker Does the pt drink ETOH?: Yes Does the pt have substance abuse?: No - Immunizations Immunizations: TDAP >10years/unknown - POLST Patient has POLST: Yes POLST Status: Full Code PD ED PE NORMAL - Vitals Vital signs reviewed: Yes - General General: No acute distress, Well developed/nourished, Other (dry mucous membranes and a blank stare but talks well. ) - HEENT HEENT: Atraumatic, PERRL, EOMI, Other (parched mucous membranes ) - Neck Neck: Supple, no meningeal sign, No bony TTP - Cardiac Cardiac: RRR, No murmur - Respiratory Respiratory: No respiratory distress, Clear bilaterally - Abdomen Abdomen: Soft, Non tender - Back Back: No CVA TTP, No spinal TTP - Derm Derm: Normal color, Warm and dry, No rash - Extremities Extremities: No deformity, No edema - Neuro Eye Opening: Spontaneous Motor: Obeys Commands Verbal: Confused GCS Score: 14 - Psych Psych: Normal mood, Normal affect Results - Vitals Vitals: Vital Signs - 24 hr 01/21/19 01/21/19 01/21/19 10:49 10:53 14:37 Temperature 37 C 36.7 C 36.9 C Heart Rate 79 78 78 Respiratory 22 16 16 Rate Blood Pressure 192/84 H 152/87 H 177/76 H O2 Saturation 94 94 94 01/21/19 15:07 Temperature Heart Rate 79 Respiratory 18 Rate Blood Pressure 209/85 H O2 Saturation 94 Oxygen O2 Source Room air - Labs Labs: Laboratory Tests 01/21/19 01/21/19 01/21/19 11:14 13:26 13:26 WBC 5.6 RBC 3.29 L Hgb 9.3 L Hct 29.0 L MCV 88.1 MCH 28.3 MCHC 32.1 RDW 15.0 Plt Count 209 MPV 9.7 Neut # (Auto) 3.5 Lymph # (Auto) 1.4 L [place] # (Auto) 0.5 Eos # (Auto) 0.2 Baso # (Auto) 0.0 Absolute Nucleated RBC 0.00 Nucleated RBC % 0.0 Sodium 143 Potassium 4.2 Chloride 106 Carbon Dioxide 24 Anion Gap 13.0 BUN 39 H Creatinine 1.5 H Estimated GFR (MDRD) 34 L Glucose 91 Lactic Acid Calcium 9.4 Total Bilirubin 0.9 AST 19 ALT < 10 L Alkaline Phosphatase 43 Troponin I Total Protein 6.3 L Albumin 3.2 Globulin 3.1 Albumin/Globulin Ratio 1.0 Lipase 43 Urine Color YELLOW Urine Clarity CLEAR Urine pH 5.5 Ur Specific [place] 1.025 Urine Protein TRACE Urine Glucose (UA) NEGATIVE Urine Ketones NEGATIVE Urine Occult Blood MODERATE H Urine Nitrite POSITIVE H Urine Bilirubin NEGATIVE Urine Urobilinogen 0.2 (NORMAL) Ur Leukocyte Esterase MODERATE H Urine RBC 6-10 H Urine WBC >25 H Urine WBC Clumps PRESENT Ur Squamous Epith Cells FEW Squamous Urine Bacteria Moderate H Ur Microscopic Review INDICATED Urine Culture Comments INDICATED 01/21/19 01/21/19 13:26 15:25 WBC RBC Hgb Hct MCV MCH MCHC RDW Plt Count MPV Neut # (Auto) Lymph # (Auto) [place] # (Auto) Eos # (Auto) Baso # (Auto) Absolute Nucleated RBC Nucleated RBC % Sodium Potassium Chloride Carbon Dioxide Anion Gap BUN Creatinine Estimated GFR (MDRD) Glucose Lactic Acid 1.2 Calcium Total Bilirubin AST ALT Alkaline Phosphatase Troponin I 0.08 Total Protein Albumin Globulin Albumin/Globulin Ratio Lipase Urine Color Urine Clarity Urine pH Ur Specific [place] Urine Protein Urine Glucose (UA) Urine Ketones Urine Occult Blood Urine Nitrite Urine Bilirubin Urine Urobilinogen Ur Leukocyte Esterase Urine RBC Urine WBC Urine WBC Clumps Ur Squamous Epith Cells Urine Bacteria Ur Microscopic Review Urine Culture Comments PD MEDICAL DECISION MAKING - ED course Complexity details: reviewed old records, reviewed results, re-evaluated patient, considered differential, d/w patient, d/w family ED course: 78-year-old female with advanced dementia has an alteration in her mental status and it comes to the emergency department appearing dry. She is vacant in her history and she has urinary tract infection with acute kidney injury without fever. She is hydrated and given IV rocephin. The hospitalist is consulted in the case for admission and the assessment is the patient does not meet "criteria" for admission to the hospital and they have requested we keep the patient in the ED overnight for placement or discharge to home with anticipation of placement. Departure - Departure Disposition: 01 , Self Care Clinical Impression: Complicated UTI (urinary tract infection), Acute metabolic encephalopathy, LIA (acute kidney injury) Condition: Serious Instructions: ED UTI Cystitis Female Follow-Up: Bill Nugent MD [Primary Care Provider] - Prescriptions: Sulfamethoxazole/Trimethoprim [Sulfamethoxazole-Tmp Ds Tablet] 1 each PO BID #14 tablet
[2019-01-21] MEDS ORDERED: SODIUM CHLORIDE 0.9% 1,000 ML IV ONE (12:25)
[2019-01-21 13:32] LABS: BASOPHILS % (AUTO) 0.4 %; EOSINOPHILS # (AUTO) 0.2 10^3/uL (0.0-0.7); HGB - HEMOGLOBIN 9.3 g/dL (12.0-16.0); LYMPHOCYTES # (AUTO) 1.4 10^3/uL (1.5-3.5); MEAN CORPUSCULAR HEMOGLOBIN 28.3 pg (27.0-31.0); MEAN CORPUSCULAR HGB CONC 32.1 g/dL (32.0-36.0); MEAN CORPUSCULAR VOLUME 88.1 fL (81.0-99.0); MEAN PLATELET VOLUME 9.7 fL (7.9-10.8); MONOCYTES # (AUTO) 0.5 10^3/uL (0.0-1.0); MONOCYTES % (AUTO) 8.9 %; NEUTROPHILS # (AUTO) 3.5 10^3/uL (1.5-6.6); NEUTROPHILS % (AUTO) 62.3 %; PLT - PLATELET COUNT 209 10^3/uL (130-450); RED BLOOD COUNT 3.29 10^6/uL (4.20-5.40); WHITE BLOOD COUNT 5.6 x10^3/uL (4.8-10.8)
[2019-01-21 13:50] LABS: ALBUMIN 3.2 g/dL (3.2-5.5); ALKALINE PHOSPHATASE 43 IU/L (42-121); ALT ALANINE AMINOTRANSFERASE < 10 IU/L (10-60); AST ASPARTATE AMINOTRANSFERASE 19 IU/L (10-42); BILIRUBIN,TOTAL 0.9 mg/dL (0.2-1.0); BUN - BLOOD UREA NITROGEN 39 mg/dL (6-20); CALCIUM 9.4 mg/dL (8.5-10.3); CARBON DIOXIDE - CO2 24 mmol/L (21-32); CHLORIDE 106 mmol/L (101-111); CREATININE 1.5 mg/dL (0.4-1.0); GFR - MDRD 34 (>89); GLUCOSE 91 mg/dL (70-100); LIPASE 43 U/L (22-51); SODIUM 143 mmol/L (135-145); TOTAL PROTEIN 6.3 g/dL (6.7-8.2)
--- NOTE | 2019-01-21 13:51 | ANESTHESIA PROCEDURE NOTE ---
Height and Weight: Height 5 ft 5 in Weight (kg) 77.111 kg Body Mass Index 28.3 Vital Signs: Temp Pulse Resp BP Pulse Ox 36.7 C 78 16 152/87 H 94 01/21/19 10:53 01/21/19 10:53 01/21/19 10:53 01/21/19 10:53 01/21/19 10:53 Allergies No Known Drug Allergies Allergy (Verified 05/28/18 22:39) Anes. Procedure Start Time: 13:40 Anes. Procedure Stop Time: 13:48 Procedure Notes: Called to place IV due to poor venous access and multiple attempts by ER staff. A #20G Iv started to Left AC x 2 attempts. Patient tolerated well.
[2019-01-21] MEDS ORDERED: CARVEDILOL 12.5 MG TABLET PO STA (15:15)
[2019-01-21 18:06] VITALS: BP 161/79
== END 2019-01-21 17:48 | disposition home or self-care (01) ==
LOC: EDUNIT# → EDBD → ED 10:41
DX: N17.9 Acute kidney failure, unspecified (principal); N39.0 Urinary tract infection, site not specified; I10 Essential (primary) hypertension; G30.9 Alzheimer's disease, unspecified; F02.80 Dementia in other diseases classified elsewhere, unspecified severity, without behavioral disturbance, psychotic disturbance, mood disturbance, and anxiety
CPT/HCPCS: 36415; 80053; 81001; 83605; 83690; 84484; 85025; 87086; 87181; 96365; 96366; 99284; A9270; 81003

== ENCOUNTER 2019-02-09 13:50 | Outpatient (CLI) | payer MEDICARE, MEDICAID ==
--- NOTE | 2019-02-09 17:01 | CONSULTATION NOTE ---
Palliative Care Follow Up - Referral Referring Provider: CATHY Casanova Time of Visit: [place] 02/09/2019. 13:50 - 14:35 Referral setting: Home Referral Reason: Pressure wound sacral - Information Sources Records reviewed: Previous records reviewed History/Review of Systems obtained from: Patient, Family, Caregiver Exam limitations: Clinical condition (Advanced dementia; poor historian) - History of Present Illness Update Brief HPI Update: [id number] for Home Health RN for Wound Care This patient has been bedbound since January 2018 and has two small stage II pressure wounds in coccyx area. Patient is totally dependent on caregiver support, and unable to reposition herself in bed. Long time respiratory care instructor left suddenly this past month, and spouse has been challenged to provide adequate support, even with aid from a new paid caregiver. They are challenged in consistently repositioning patient throughout the day due to her weight, substandard bed and poor logistics in the room where the patient currently resides. They are also rarely able to transfer her in to her wheelchair for the same reasons. The patient is currently in poor living conditions in her private residence, but is due to transfer to long-term care at [facility] on Friday. This has been arranged by her [facility] corrections counselor. Patient would benefit from Home Health RN for assessment and management of stage II pressure wounds on the coccyx. I recommend home health RN services for this patient. 78-year-old female with dementia and significant decline, including loss of ambulation, since January 2018. Patient had 3 ED visits in 2018 (Sep, Mar, Apr, May) for AMS or decreased LOC. She was hospitalized Aug 2018 for complicated UTI, LIA, and dysphagia. She lives at home with her , and requires full assistance with all ADLs and transfers. Medical History: Dementia with behavior disturbance; HTN; HLD; LVH (EF 75% Apr 14); TIA; depression; PVD (venous); dysthmic disorder; atrial fibrillation; rheumatic heart valve diseases; aortic stenosis; CKD III; osteoarthritis; GERD; recurrent UTIs. Several weeks ago Jael, the paid cargiver, left the job and Alfred, the spouse, was trying to provide full-time caregiving 03/02. This was a challenge due poor health and spinal restrictions (Alfred is currently trying to arrange for spinal surgery for himself). The patient's [facility] case coordinator Stephy Smith has provided an interim caregiver, Karla, who has been working 7 days/week, 8-4pm. Stephy has also coordinated with [facility] to transfer the patient there for [id number] on Friday02/15/2019. Karla and Alfred are having challenges in repositioning the patient frequently throughout the day, due to her weight, their compromised backs, and a bed without adjustable height. Also they haven't been transferring her from bed to wheelchair. Alfred can't do it alone, and Karla doesn't assist due to her weak back. Patient is alert and appears at her baseline. She answers only yes/no questions, and is unable to express herself otherwise. She appears confused and unable to formulate or articulate words properly. Alfred her spouse does believe she fully understands and can speak, but he also admits that she is unable to verbalize except for monosyllables. Patient denies pain and does not appear in discomfort or in pain and Karla reports she doesn't complain of pain. Patient does frequently refuse medications, so Alfred tries to give her at least the fluoxetine and skips most of the others. Patient's BP is high today 181/93. BP at previous visit in November was similar. Did discuss with Alfred about prioritizing the carvedilol to control her BP. He verbalized understanding but said sometimes it feels like they have to sit on her chest to get her to take the pills. Putting the tablets in pudding doesn't work all the time. Patient did indicate she doesn't sleep well at night, but was unable to provide further history. Caregiver reports that the patient catnaps throughout the day. Social History - Living Situation Living arrangement: At home Living Situation: With spouse/s.o. Support System: Patient and her , Alferd, have been 35 years. She's originally from [place]. They've been on [place] about 30 years. They have no children together. Patient has 3 adopted daughters, 1 in [place]; 1 in [facility], 1 in [place]. Alfred and the daughter in [place] are estranged. Patient has a grandson, Ty, who has been around recently. 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 Patient has temporary paid caregiver (through [facility]) Karla Eli [phone], here daily from 8-4pm. Patient is due to be transferred to long-term care at [facility] on Friday02/15/19. Patient's [facility] case coordinator is Char Smith [phone]. Palliative Care SW visited spouse and patient earlier in January. Medications/Allergies - Medications Home Medications: Ambulatory Orders Medication Instructions Recorded Confirmed FLUoxetine [PROzac] 10 mg ORAL DAILY 03/29/18 02/09/19 Acetaminophen [Tylenol] 650 mg PO Q4HR PRN tablet 08/20/18 02/09/19 Carvedilol [Coreg] 12.5 - 25 mg PO BIDWM 09/04/18 02/09/19 Mupirocin 2% 1 ea TOP BID PRN 09/04/18 02/09/19 Nystatin Cream [Mycostatin Cream] 1 ea TOP BID PRN 09/04/18 02/09/19 - Allergies Allergies/Adverse Reactions: Allergies Allergy/AdvReac Type Severity Reaction Status Date / Time No Known Drug Allergies Allergy Verified 05/28/18 22:39 Review of Systems - Constitutional Constitutional: reports: Weakness, Poor appetite, Weight loss (Most recent weight was 167 bs 08/16/18, BMI 32.7. She weighed 199 lbs 05/10/17.) - Ears, Nose & Throat Ears, Nose & Throat: reports: Hearing loss - Cardiovascular Cardiovascular: reports: Decr. exercise tolerance - Gastrointestinal Gastrointestinal: reports: Other (history of loose stools). denies: Constipation - Genitourinary Genitourinary: reports: Incontinence. denies: Dysuria - Musculoskeletal Musculoskeletal: reports: Limited range of motion, Transfer issues (requires a Dayana, current residence does not accommodate one), Other (unable to remain sitting upright on her own, slumps L or R, and now slides off the seat of her wheelchair) - Integumentary Integumentary: reports: Other (two stage II pressure wounds on sacrum) - Neurological Neurological: reports: General weakness, Memory problems - Psychiatric Psychiatric: reports: Other (does refuse medications and meals). denies: Behavior disturbances - Hematologic/Lymphatic Hematologic/Lymphatic: reports: Anemia Physical Exam - Vital Signs Temperature: 96.4 F Pulse Rate: 63 O2 Saturation: 97 (room air) Blood Pressure: 181/93 - Physical Exam General Appearance: positive: No acute distress, Alert Eyes Bilateral: positive: Normal inspection ENT: positive: No signs of dehydration Neck: positive: Trachea midline Cardiovascular: positive: Regular rate & rhythm, No gallop, Systolic murmur (2/6) Respiratory: positive: Chest non-tender, No respiratory distress, Diminished in bases. negative: Wheezes, Rales, Rhonchi Abdomen: positive: Non-tender, Soft, Nml bowel sounds, Obese Skin: positive: Pressure wound (2 small stage II on sacral area, covered with zinc cream) Extremities: positive: No pedal edema. negative: Full ROM Neurologic/Psychiatric: positive: Disoriented to time, Slurred/abnml speech (monosyllabic responses; unable to articulate; word search), Flat affect Palliative Care - POLST Patient has POLST: Yes POLST Status: DNR, Comfort Measures Pain: No pain Tiredness/Fatigue: Moderate (4-6) Drowsiness/Sedation: Moderate (4-6) Sleep: Variable sleep pattern (catnaps during day) Constipation: No Performance Status: Unable to weight bear or ambulate since January 2018 Full assistance required for all ADLs and personal care Needs a Dayana for transfers, her home is not set up for one Unable to remain seated upright, slumps to R or L, now also slides out of wheelchair seat Able to feed self Verbal ability limited to Yes/No answers FAST 7D - Palliative Care Discussion: Things were brought to a crisis this month, when the long-term paid caregiver abruptly left the job. Alfred was obligated to provide care giving 03/02 and he wasn't able to handle it physically due to his back problems. He now has a paid caregiver 7 days a week through [facility]. The case coordinator has also found a long- term position for the patient at [facility] in [place]. Alfred admits that physically he can no longer provide the level of care at home that the patient requires. He is in the process of arranging for a back operation and does not yet know how he will manage it all. He says the patient knows she will be moving into a facility, that he has told her. Alfred feels she will actually like it because there will be people around and she won't be isolated and alone like she is here at home. They have spoken about this in the past, before her health failed, and she told him that she would like a facility, that she would go around talking to everyone. We reviewed her POLST which is DNR and comfort care. He expressed some reticence about the comfort care. This is because of a family member he knew who was on comfort care, and the doctors didn't fix her fractured leg, "just gave her morphine." I clarified that comfort care means providing care that keep a pat ient comfortable and out of pain. If a patient has a fracture, under comfort care/Hospice they would be treated at a hospital to treat/repair the fracture because the goal is to relieve pain and keep the patient comfortable. He was relieved to have that clarified. Patient and Alfred had a visit from Palliative Care oncology social work earlier this month. Impression and Recommendations - Palliative Care Impression: 78-year-old female with dementia and significant decline since being bedbound for the past year. Her multimedia assistant caregiver abruptly left the job, triggering a change in the care plan. Patient's spouse has worked with her [facility] case coordinator to secure her a room at [facility] where she will be moving to next week. Patient has two small stage II pressure wounds on sacrum which would benefit from Home Health healthcare network pricing consultant. Palliative Care will continue to provide support and monitoring after patient relocates to [facility]. Recommendations/Counseling Done: Stage II pressure wounds on sacrum area: Recommend Home Health RN for ass essment and management of wound care. See [id number] under HPI for details. Patient will be relocating to long-term care at [facility] on 02/15/2019. Home Health had also been recommended back in 09/30/18, but had been ultimately declined by the caregiver because the wounds had resolved. Dementia with behaviors: Stable with slow decline. Continue fluoxetine (the most energizing SSRI). Patient frequently refuses medications HTN: BP remains elevated, today is 181/93 (in August it was over 200.) Patient continues to refuse medications frequently. Dosing was originally 25mg BID, [facility] had previously decreased it to one-half tab (12.5mg) due to previous caregiver reporting increased lethargy with carvedilol, in addition to patient's frequent refusal to take med. [facility] is revising it to 25mg BID, since patient's BP is consistently elevated, and she does not appear lethargic currently. Will continue to monitor it at [facility], with the hope that staff there may have more success in obtaining the patient's compliance with the meds. Moisture associated dermatitis (Adult diaper rash): Suing A&D zinc barrier cream, to also protect the small open areas. Chronic diarrhea: Patient has previously had a pattern of intermittent loose stools and/or vomiting. Caregiver doesn't report any incidences, but sometimes patient complains of abdominal pain. She has no pain complaints today, GI assessment is unremarkable. Advance care planning: POLST is DNR and comfort care. Confirmed with spouse today that he is no longer able to provide the level of care the patient needs, due to his own failing health and compromised back, and patient requires 24hour oversight. He had originally planned to keep the patient at home, having made her a promise. But he realizes she needs a higher level of care than he can provide, even with daily paid caregiver support. He feels she will enjoy being at [facility], and being around people. He feels she has been too isolated at home. Her grandson Ty has visited [facility] and is helping out with the patient. PLASTICS PLATER called the [facility] and they confirmed the patient is scheduled to move in on Friday02/15/19. Palliative Care oncology social work visited the patient and spouse earlier this month. Time Spent: 45 minutes were spent with more than 50% of the time spent on counseling, education, providing anticipatory guidance and coordination of care with caregiver and spouse.
== END 2019-02-09 13:51 | disposition home or self-care (01) ==
LOC: PC 13:50
PROVIDERS: ATTEND Nurse Practitioner
DX: Z51.5 Encounter for palliative care (principal); L89.152 Pressure ulcer of sacral region, stage 2; F03.91 Unspecified dementia, unspecified severity, with behavioral disturbance; I13.10 Hypertensive heart and chronic kidney disease without heart failure, with stage 1 through stage 4 chronic kidney disease, or unspecified chronic kidney disease; N18.3 Chronic kidney disease, stage 3 (moderate); L22 Diaper dermatitis; R32 Unspecified urinary incontinence; T44.7X6A Underdosing of beta-adrenoreceptor antagonists, initial encounter; Z91.130 Patient's unintentional underdosing of medication regimen due to age-related debility; Y92.003 Bedroom of unspecified non-institutional (private) residence as the place of occurrence of the external cause; Z74.01 Bed confinement status; Z66 Do not resuscitate; Z87.19 Personal history of other diseases of the digestive system
CPT/HCPCS: 99349

== ENCOUNTER 2019-02-14 14:41 | Outpatient (CLI) | payer MEDICARE, MEDICAID | END 2019-02-14 14:42 | disposition critical access hospital (66) | LOC: EMS 14:41 | PROVIDERS: ATTEND Surgery | DX: R40.4 Transient alteration of awareness (principal) | CPT/HCPCS: A0425; A0427 ==

== ENCOUNTER 2019-02-14 14:50 | Inpatient (IN) | payer MEDICARE, MEDICAID ==
[2019-02-14] MEDS ORDERED: SODIUM CHLORIDE 0.9% 1,000 ML IV ONE ×2 (15:04)
--- NOTE | 2019-02-14 15:09 | ED Physician Documentation ---
History of Present Illness - Stated complaint Stated Complaint: SYNCOPE - Chief complaint Chief Complaint: Neuro - History obtained from History obtained from: Patient, Family, EMS - History of Present Illness Timing: Today Pain level max: 0 Pain level now: 0 Improved by: nothing Worsened by: nothing - Additonal information Additional information: 78-year-old female with some dementia. She has been staying in her bed for the last week or 2. Her caregiver quit. She is incontinent of stool and urine. Today her son came over, picked her up and took her to his home. She was in a wheelchair when she had an episode of "unresponsiveness". They states that these have been occurring over the past few months. Does not have any seizure- like activity during these events. He states that they normally "give her milk" which snaps her out of it. Lasted 1-2 mins. Review of Systems Unable to obtain: Confused Constitutional: denies: Fever, Chills Cardiac: denies: Chest pain / pressure Respiratory: denies: Cough GI: reports: Nausea. 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 : Incontinence, Chronic bladder infection, Nocturia, Frequency HEENT: Chronic vision loss, Chronic hearing loss Psych: Depression Musculoskeletal: Osteoarthritis, Paraplegia, Fatigue Derm: None - Past Surgical History Past Surgical History: Yes Derm: Skin cancer surgery - Present Medications Home Medications: Ambulatory Orders Medication Instructions Recorded Confirmed FLUoxetine [PROzac] 10 mg ORAL DAILY 03/29/18 02/14/19 Acetaminophen [Tylenol] 650 mg PO Q4HR PRN tablet 08/20/18 02/14/19 Carvedilol [Coreg] 12.5 - 25 mg PO BIDWM 09/04/18 02/14/19 Nystatin Cream [Mycostatin Cream] 1 ea TOP BID PRN 09/04/18 02/14/19 - Allergies Allergies/Adverse Reactions: Allergies Allergy/AdvReac Type Severity Reaction Status Date / Time No Known Drug Allergies Allergy Verified 02/14/19 15:00 - Social History Does the pt smoke?: No Smoking Status: Never smoker Does the pt drink ETOH?: Yes Does the pt have substance abuse?: No - Immunizations Immunizations are current?: No Immunizations: TDAP >10years/unknown - POLST Patient has POLST: Yes POLST Status: Full Code PD ED PE NORMAL - Vitals Vital signs reviewed: Yes - General General: No acute distress, Other (alert, oriented to person and place) - HEENT HEENT: Atraumatic, PERRL, Other (dry lips and tongue) - Neck Neck: Supple, no meningeal sign - Cardiac Cardiac: RRR, Strong equal pulses - Respiratory Respiratory: No respiratory distress, Clear bilaterally - Abdomen Abdomen: Soft, Non tender, Non distended - Back Back: No CVA TTP - Derm Derm: Warm and dry, No rash - Extremities Extremities: No deformity - Neuro Neuro: No motor deficit, No sensory deficit, Other (alert, oriented x 2) - Psych Psych: Other (flat affect) Results - Vitals Vitals: Vital Signs - 24 hr 02/14/19 02/14/19 02/14/19 14:52 16:59 17:54 Temperature 36.2 C L 36.6 C Heart Rate 96 83 84 Respiratory 15 16 16 Rate Blood Pressure 106/70 216/88 H O2 Saturation 96 95 93 02/14/19 19:00 Temperature Heart Rate 80 Respiratory 13 Rate Blood Pressure 210/124 H O2 Saturation 98 Oxygen O2 Source Room air - EKG (time done) 1504 Rate: Rate (enter#) (96) Rhythm: NSR [place]: Normal Intervals: Normal ND, Wide QRS QRS: LVH Ischemia: ST elevation c/w repol (V2, V3) - Labs Labs: Laboratory Tests 02/14/19 02/14/19 02/14/19 15:17 15:17 15:17 WBC 10.3 RBC 3.63 L Hgb 10.2 L Hct 31.5 L MCV 86.8 MCH 28.1 MCHC 32.4 RDW 14.6 Plt Count 314 MPV 9.3 Neut # (Auto) 7.3 H Lymph # (Auto) 2.0 [place] # (Auto) 0.6 Eos # (Auto) 0.3 Baso # (Auto) 0.1 Absolute Nucleated RBC 0.00 Nucleated RBC % 0.0 Sodium 140 Potassium 3.9 Chloride 106 Carbon Dioxide 20 L Anion Gap 14.0 H BUN 26 H Creatinine 1.5 H Estimated GFR (MDRD) 34 L Glucose 139 H Lactic Acid Calcium 9.3 Total Bilirubin 0.9 AST 14 ALT < 10 L Alkaline Phosphatase 56 Total Creatine Kinase Troponin I High Sens 49.3 H* Total Protein 7.0 Albumin 3.2 Globulin 3.8 Albumin/Globulin Ratio 0.8 L Lipase 34 Urine Color Urine Clarity Urine pH Ur Specific [place] Urine Protein Urine Glucose (UA) Urine Ketones Urine Occult Blood Urine Nitrite Urine Bilirubin Urine Urobilinogen Ur Leukocyte Esterase Ur Microscopic Review Urine Culture Comments Urine Opiates Screen Ur Oxycodone Screen Urine Methadone Screen Ur Propoxyphene Screen Ur Barbiturates Screen Ur Tricyclics Screen Ur Phencyclidine Scrn Ur Amphetamine Screen U Methamphetamines Scrn U Benzodiazepines Scrn Urine Cocaine Screen U Cannabinoids Screen Ethyl Alcohol 02/14/19 02/14/19 02/14/19 15:17 15:17 15:17 WBC RBC Hgb Hct MCV MCH MCHC RDW Plt Count MPV Neut # (Auto) Lymph # (Auto) [place] # (Auto) Eos # (Auto) Baso # (Auto) Absolute Nucleated RBC Nucleated RBC % Sodium Potassium Chloride Carbon Dioxide Anion Gap BUN Creatinine Estimated GFR (MDRD) Glucose Lactic Acid 1.6 Calcium Total Bilirubin AST ALT Alkaline Phosphatase Total Creatine Kinase 87 Troponin I High Sens Total Protein Albumin Globulin Albumin/Globulin Ratio Lipase Urine Color Urine Clarity Urine pH Ur Specific [place] Urine Protein Urine Glucose (UA) Urine Ketones Urine Occult Blood Urine Nitrite Urine Bilirubin Urine Urobilinogen Ur Leukocyte Esterase Ur Microscopic Review Urine Culture Comments Urine Opiates Screen Ur Oxycodone Screen Urine Methadone Screen Ur Propoxyphene Screen Ur Barbiturates Screen Ur Tricyclics Screen Ur Phencyclidine Scrn Ur Amphetamine Screen U Methamphetamines Scrn U Benzodiazepines Scrn Urine Cocaine Screen U Cannabinoids Screen Ethyl Alcohol 6.5 02/14/19 02/14/19 16:27 17:25 WBC RBC Hgb Hct MCV MCH MCHC RDW Plt Count MPV Neut # (Auto) Lymph # (Auto) [place] # (Auto) Eos # (Auto) Baso # (Auto) Absolute Nucleated RBC Nucleated RBC % Sodium Potassium Chloride Carbon Dioxide Anion Gap BUN Creatinine Estimated GFR (MDRD) Glucose Lactic Acid Calcium Total Bilirubin AST ALT Alkaline Phosphatase Total Creatine Kinase Troponin I High Sens 65.4 H* Total Protein Albumin Globulin Albumin/Globulin Ratio Lipase Urine Color YELLOW Urine Clarity CLEAR Urine pH 6.5 Ur Specific [place] 1.015 Urine Protein TRACE Urine Glucose (UA) NEGATIVE Urine Ketones TRACE Urine Occult Blood NEGATIVE Urine Nitrite NEGATIVE Urine Bilirubin NEGATIVE Urine Urobilinogen 0.2 (NORMAL) Ur Leukocyte Esterase NEGATIVE Ur Microscopic Review NOT INDICATED Urine Culture Comments NOT INDICATED Urine Opiates Screen NEGATIVE Ur Oxycodone Screen NEGATIVE Urine Methadone Screen NEGATIVE Ur Propoxyphene Screen NEGATIVE Ur Barbiturates Screen NEGATIVE Ur Tricyclics Screen NEGATIVE Ur Phencyclidine Scrn NEGATIVE Ur Amphetamine Screen NEGATIVE U Methamphetamines Scrn NEGATIVE U Benzodiazepines Scrn NEGATIVE Urine Cocaine Screen NEGATIVE U Cannabinoids Screen NEGATIVE Ethyl Alcohol - Rads (name of study) head CT Radiology: Prelim report reviewed, EMP read contemporaneously, See rad report (No definite acute infarct seen. If there is clinical concern for acute stroke or symptoms persist an MR brain could be considered to evaluate for small or subtle pathology. 2. No acute intracranial hemorrhage, mass, hydrocephalus, or midline shift. 3. Old chronic lacunar infarcts involving bilateral basal ganglia that appears similar to CT head 08/15/2018. There is additional white matter changes seen that appear similar to prior study and may represent sequela of chronic small vessel ischemic disease. ) L hip xray Radiology: Prelim report reviewed, EMP read contemporaneously, See rad report (Diffuse demineralization. No definite acute fracture. If there is high clinical suspicion for occult fracture, consider CT or MRI. ) PD MEDICAL DECISION MAKING - ED course Complexity details: reviewed results, re-evaluated patient, considered differential, d/w patient, d/w family ED course: Unclear etiology of her symptoms today. Likely syncope will place in observation for tele monitoring and further workup. Also having L hip pain. no acute findings on xray. No arrhythmias here. No UTI. Given IV fluids for mild de hydration. She does not walk. She is going to an assisted living facility tomorrow. Discussed the case with Dr. Martin, hospitalist who accepts This document was made in part using voice recognition software. While efforts are made to proofread this document, sound alike and grammatical errors may occur. Departure - Departure Disposition: ED Place in Observation Clinical Impression: Syncope Qualifiers: Syncope type: unspecified Qualified Code(s): R55 - Syncope and collapse Condition: Stable Discharge Date/Time: 02/14/19 20:40
[2019-02-14 15:24] LABS: BASOPHILS # (AUTO) 0.1 10^3/uL (0.0-0.1); BASOPHILS % (AUTO) 0.6 %; EOSINOPHILS # (AUTO) 0.3 10^3/uL (0.0-0.7); EOSINOPHILS % (AUTO) 2.7 %; HGB - HEMOGLOBIN 10.2 g/dL (12.0-16.0); LYMPHOCYTES % (AUTO) 19.6 %; MEAN CORPUSCULAR HEMOGLOBIN 28.1 pg (27.0-31.0); MEAN CORPUSCULAR HGB CONC 32.4 g/dL (32.0-36.0); MEAN CORPUSCULAR VOLUME 86.8 fL (81.0-99.0); MEAN PLATELET VOLUME 9.3 fL (7.9-10.8); MONOCYTES # (AUTO) 0.6 10^3/uL (0.0-1.0); MONOCYTES % (AUTO) 5.6 %; NEUTROPHILS # (AUTO) 7.3 10^3/uL (1.5-6.6); NEUTROPHILS % (AUTO) 71.2 %; PLT - PLATELET COUNT 314 10^3/uL (130-450); RED BLOOD COUNT 3.63 10^6/uL (4.20-5.40); RED CELL DISTRIBUTION WIDTH 14.6 % (12.0-15.0); WHITE BLOOD COUNT 10.3 x10^3/uL (4.8-10.8)
[2019-02-14 15:37] LABS: ALBUMIN 3.2 g/dL (3.2-5.5); ALBUMIN/GLOBULIN RATIO 0.8 (1.0-2.2); ALKALINE PHOSPHATASE 56 IU/L (42-121); ALT ALANINE AMINOTRANSFERASE < 10 IU/L (10-60); AST ASPARTATE AMINOTRANSFERASE 14 IU/L (10-42); BILIRUBIN,TOTAL 0.9 mg/dL (0.2-1.0); BUN - BLOOD UREA NITROGEN 26 mg/dL (6-20); CALCIUM 9.3 mg/dL (8.5-10.3); CARBON DIOXIDE - CO2 20 mmol/L (21-32); CHLORIDE 106 mmol/L (101-111); CREATININE 1.5 mg/dL (0.4-1.0); GFR - MDRD 34 (>89); GLUCOSE 139 mg/dL (70-100); LIPASE 34 U/L (22-51); SODIUM 140 mmol/L (135-145)
--- NOTE | 2019-02-14 16:09 | CT Report ---
Reason: ALOC Procedure Date: 02/14/2019 Accession Number: [id number] / [id number] Procedure: CT - HEAD WO CPT Code: FULL RESULT: EXAM: CT HEAD WITHOUT CONTRAST. EXAM DATE: 02/14/2019 03:46 PM. CLINICAL HISTORY: 78-year-old presenting with altered level of consciousness including worsening confusion, disorientation, and decreased mentation. Evaluate for intracranial pathology. COMPARISON: HEAD W/O 08/15/2018 3:14 PM. TECHNIQUE: Multiaxial CT images were obtained from the foramen magnum to the vertex. Reformats: Sagittal and coronal. IV contrast: None. In accordance with CT protocol optimization, one or more of the following dose reduction techniques were utilized for this exam: automated exposure control, adjustment of mA and/or KV based on patient size, or use of iterative reconstructive technique. FINDINGS: Parenchyma: No acute parenchymal hemorrhage, mass, or midline shift. Again seen are old chronic lacunar infarcts of bilateral basal ganglia that appears similar to prior study. There is additional moderate to severe bilateral areas of white matter hypoattenuation seen that appears similar to CT head 08/15/2018. There is no convincing CT evidence of acute infarct. Mild to moderate cortical volume loss. Extraaxial Spaces: Sulci and cisterns appear prominent but appropriate for the extent of volume loss. No subdural or epidural collections identified. Ventricles: Lateral ventricles and third ventricle appear prominent but appropriate for the extent of volume loss. No definite evidence of intraventricular hemorrhage. Sinuses and Orbits: Imaged paranasal sinuses, orbits, and mastoids show no significant abnormality. Bones: No evidence of fracture or calvarial defect. Changes of hyperostosis frontalis internus. Other: Vascular calcifications of the cavernous and supraclinoid ICA segments. IMPRESSION: 1. No definite acute infarct seen. If there is clinical concern for acute stroke or symptoms persist an MR brain could be considered to evaluate for small or subtle pathology. 2. No acute intracranial hemorrhage, mass, hydrocephalus, or midline shift. 3. Old chronic lacunar infarcts involving bilateral basal ganglia that appears similar to CT head 08/15/2018. There is additional white matter changes seen that appear similar to prior study and may represent sequela of chronic small vessel ischemic disease. RADIA
[2019-02-14 16:38] LABS: MUDS CUTOFF CONCENTRATIONS CUTOFF CONC BELOW:
[2019-02-14 16:41] LABS: BILIRUBIN,URINE NEGATIVE (NEGATIVE); GLUCOSE, URINE (UA) NEGATIVE (NEGATIVE); KETONES,URINE (UA) TRACE mg/dL (NEGATIVE); LEUKOCYTE ESTERASE, URINE NEGATIVE (NEGATIVE); NITRITE,URINE NEGATIVE (NEGATIVE); OCCULT BLOOD,URINE NEGATIVE (NEGATIVE); PH,URINE 6.5 PH (5.0-7.5); PROTEIN,URINE TRACE mg/dL (NEGATIVE); UROBILINOGEN,URINE 0.2 (NORMAL) E.U./dL (NORMAL)
[2019-02-14 16:55] LABS: CLARITY,URINE CLEAR (CLEAR)
[2019-02-14 16:56] LABS: AMPHETAMINE SCREEN,URINE NEGATIVE (NEGATIVE); BENZODIAZEPINES SCREEN, URINE NEGATIVE (NEGATIVE); COCAINE SCREEN URINE NEGATIVE (NEGATIVE); METHADONE SCREEN, URINE NEGATIVE (NEGATIVE); METHAMPHETAMINES SCREEN, URINE NEGATIVE (NEGATIVE); OPIATE SCREEN, URINE NEGATIVE (NEGATIVE); OXYCODONE SCREEN, URINE NEGATIVE (NEGATIVE); PROPOXYPHENE SCREEN, URINE NEGATIVE (NEGATIVE); TRICYCLIC ANTIDEPRESSANT,URINE NEGATIVE (NEGATIVE)
[2019-02-14] MEDS ORDERED: SODIUM CHLORIDE FLUSH 0.9% 10 ML SYRINGE IVP PRN (20:08)
[2019-02-14] MEDS ORDERED: LABETALOL 5 MG/1 ML 20 ML MDV IVP STA (20:12)
--- NOTE | 2019-02-14 20:17 | XRAY Report ---
Reason: hip pain Procedure Date: 02/14/2019 Accession Number: [id number] / [id number] Procedure: XR - Hip w/Pelvis 2-3V LT CPT Code: FULL RESULT: EXAM: LEFT HIP RADIOGRAPHY EXAM DATE: 02/14/2019 07:52 PM. CLINICAL HISTORY: Hip pain. COMPARISON: None. TECHNIQUE: 2 views. FINDINGS: Bones: There is diffuse demineralization. No cortical step-off or definite fracture identified. Joints: No subluxation or dislocation. Soft Tissues: Normal. No soft tissue swelling. IMPRESSION: Diffuse demineralization. No definite acute fracture. If there is high clinical suspicion for occult fracture, consider CT or MRI. RADIA
--- NOTE | 2019-02-14 21:41 | HISTORY & PHYSICAL EXAMINATION ---
Chief Complaint - Chief Complaint Chief Complaint: Unresponsiveness History of Present Illness - Admitted From Admitted From:: Home - History Obtained From Records Reviewed: Yes History obtained from: Family, ER Physician Exam Limitations: Patient has dementia - History of Present Illness HPI Comment/Other: This is a 78 year old female with past medical history significant for hypertension, CKD III, aortic stenosis, and dementia who presents from home after she had an episode of unresponsiveness today. History is obtained from the family as the patient has dementia and only gives one word answers and does not appear to be reliable historian per the family. The patient's grandson tells me he was helping transfer her from the car to the home today when her eyes rolled to the back of her head and she back unresponsive for 5 minutes. She was initially confused for a minute after the episode before becoming more oriented. The family tells me that she has had similar episodes over the past few years that occur weekly but that this last longer than usual. The patient has been wheelchair bound now for the last couple of years and is dependent for all of her ADL's. She had a caregiver who would help her around the house but that one left one week ago. There is a new caregiver for the past week but they have been unable to get her out of bed and she has practically been bed bound for the last week until today. The patient denies chest pain, palpitations, dizziness, shortness of breath. Family reports she has not been eating much recently but that her appetite is poor in general. She does not take some of her medications as she has difficulty swallowing. She does have palliative care follow up at home with Sarah HOLM visting the patient just a few days ago. The patient is scheduled to transfer to the [facility] tomorrow February 15. In the ER, her vitals were significant for hypertension with SBP in the 200's. She had a CT of the head done which showed an old CVA but no acute process. Her labs are relatively unremarkable and are at baseline. She will be admitted under observation for workup of syncope. I did discuss with the family regarding goals of care. She has a POLS form signed stating DNR and comfort measures. They agree with the DNR but are agreeable to admission and further medical workup. 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 Living arrangement: At home Living Situation: With spouse/s.o., With caregiver(s) Social History Notes: The patient lives independently with her , Alfred. She previously had a cargiver who assisted her with ADL's but arubptly left. 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 She stopped smoking 25 years ago, denies alcohol use or illicit drug use. - Substance History Use: Uses substance without health or social issues: NONE - POLST Patient has POLST: Yes POLST Status: DNR Meds/Allgy - Home Medications Home Medications: Ambulatory Orders Medication Instructions Recorded Confirmed FLUoxetine [PROzac] 10 mg ORAL DAILY 03/29/18 02/14/19 Acetaminophen [Tylenol] 650 mg PO Q4HR PRN tablet 08/20/18 02/14/19 Carvedilol [Coreg] 12.5 - 25 mg PO BIDWM 09/04/18 02/14/19 Nystatin Cream [Mycostatin Cream] 1 ea TOP BID PRN 09/04/18 02/14/19 - Allergies Allergies/Adverse Reactions: Allergies Allergy/AdvReac Type Severity Reaction Status Date / Time No Known Drug Allergies Allergy Verified 02/14/19 15:00 Review of Systems - Cardiovascular Cariovascular: denies: Palpitations, Chest pain, Lightheadedness - Respiratory Respiratory: denies: SOB at rest - Musculoskeletal Musculoskeletal: reports: Muscle weakness - Neurological Neurological: reports: General weakness, Focal weakness - All Other Systems All Other Systems: reports: Other (Difficult to obtain ROS due to her dementia.) Prior Level of Functionality: She is wheelchair bound at baseline. Dependent for all of her ADL's. Previously had a caregiver who left one week ago and has been bed bound since that time as new career coach has been unable to get her out of bed. Exam - Vital Signs Reviewed Vital Signs: Yes Vital Signs: Vital Signs x48h Temp Pulse Pulse Resp BP BP Pulse Ox 02/14/19 20:57 37.1 C 83 18 208/106 H 97 02/14/19 19:00 80 13 210/124 H 98 02/14/19 17:54 36.6 C 84 16 216/88 H 93 02/14/19 16:59 83 16 95 02/14/19 14:52 36.2 C L 96 15 106/70 96 - Physical Exam General Appearance: positive: No acute distress, Alert Eyes Bilateral: positive: Normal inspection ENT: positive: Dry mucous membranes. negative: No signs of dehydration Neck: positive: Nml inspection Respiratory: positive: No respiratory distress, Other (Diminished breath sounds bilaterally) Cardiovascular: positive: Regular rate & rhythm, Systolic murmur. negative: Irregularly irregular, Tachycardia, Bradycardia Abdomen: positive: Non-tender, No distention, Guarding. negative: Rebound Skin: positive: No rash, Warm, Dry Extremities: positive: No pedal edema, Other (Right lower extremity is larger than the left. No tenderness to palpation.) Neurologic/Psychiatric: positive: Weakness, Slurred/abnml speech (Answers with one word.), Other (Oriented to self. Unable to move her lower extremities. Able to move upper extremities). negative: Motor nml Conclusion/Plan - Problem List (1) Syncope Conclusion/Plan: The etiology of her syncope is not clear. This is not the first episode and it appears to be occurring more frequently. She does mild aortic stenosis on her last echocardiogram and it is unlikely it progressed enough over this period of time to now be severe enough to cause syncope. I wonder if there is a component of autonomic dysfunction or if she has vasovagal episodes causing these episodes . Her EKG reveals a sinus rhythm with ST elevated in V1-V3 likely from LVH and not ischemia. Her HS troponin is only mildly elevated so I do not believe this was a cardiac event. CT of the head showed no acute process but did show an old CVA. Urinalysis and drug screen unremarkable. - Monitor on telemetry - Trend troponin - Check ECHO although low suspicion for progression of her and she likely would not a candidate for surgery or TAVR - Check dopplers of lower extremity as she has been bed bound for a week and may have developed a DVT Qualifiers: Syncope type: unspecified Qualified Code(s): R55 - Syncope and collapse (2) Alzheimer's dementia with behavioral disturbance Conclusion/Plan: She appears to be at her baseline. On Fluoxetine at home. - Continue Fluoxetine Qualifiers: Alzheimer's disease onset: other onset Qualified Code(s): G30.8 - Other Alzheimer's disease; F02.81 - Dementia in other diseases classified elsewhere with behavioral disturbance (3) Aortic stenosis Conclusion/Plan: Last ECHO in 2017 showed mild with valve area of 1.5. - Check ECHO Qualifiers: Cardiac valve disease etiology: etiology unspecified Qualified Code(s): I35.0 - Nonrheumatic aortic (valve) stenosis (4) CKD (chronic kidney disease) stage 3, GFR 30-59 ml/min Conclusion/Plan: Renal function is stable at creatinine of 1.5. - Monitor renal function (5) Hypertension Conclusion/Plan: Her blood pressure is poorly controlled and it appears she does not always take her medications. Per last palliative note, blood pressure was also in the 180's during that visit. - Resume home Carvedilol - She may benefit from a clonidine if pressures remain poorly controlled and she is unable to consistently take her medications Qualifiers: Hypertension type: essential hypertension Qualified Code(s): I10 - Essenti al (primary) hypertension (6) Weakness Conclusion/Plan: She has been progressively declining from a functional status point of view and is now wheelchair bound. She is dependent for her ADL's and caregiver for the last week has been unable to get her out of bed. Family planning to transition care to [facility] tomorrow. - Plan to discharge to [facility] - Lab Results Lab results reviewed: Yes Fish Bones: 02/14/19 15:17 02/14/19 15:17 - Diagnostic Imaging Results Diagnostic Imaging Results: positive: Final report reviewed - EKG Results EKG Interpreted Independently: Yes EKG Findings: Sinus rhythm with ST elevated in V1-V3 likely from LVH and not ischemia. Core Measures - Anticipated LOS I expect patient to be DC'd or transferred within 96 hours.: Yes - Issues Hospital Issues and Management Plan: Syncope. Monitor on tele. Check echo. Lower extremity dopplers to rule out DVT. - DVT/VTE - Prophylaxis VTE/DVT Device ordered at admit?: Yes VTE/DVT Prophylaxis med ordered at admit?: Yes
[2019-02-14] MEDS: CARVEDILOL 12.5 MG TABLET PO SCH (22:12)
[2019-02-14] MEDS: HEPARIN 5,000 UNIT/ML VIAL SUBQ SCH (22:12)
[2019-02-14] MEDS: SODIUM CHLORIDE FLUSH 0.9% 10 ML SYRINGE IVP SCH (23:41)
[2019-02-15] MEDS: ACETAMINOPHEN 500 MG TABLET PO PRN ×2 (00:56→09:16)
--- NOTE | 2019-02-15 01:13 | Ultrasound Report ---
Reason: Rule out DVT Procedure Date: 02/14/2019 Accession Number: [id number] / [id number] Procedure: US - Duplex Ext Veins Bilateral CPT Code: FULL RESULT: EXAM: BILATERAL LOWER EXTREMITY VENOUS ULTRASOUND EXAM DATE: 02/14/2019 11:59 PM. CLINICAL HISTORY: Bilateral leg swelling COMPARISON: None. TECHNIQUE: Real-time sonographic vascular imaging was performed by the mail sorter through the lower extremities utilizing both color-flow and Doppler spectral analysis. Multiple customer care representative static images were saved for review. FINDINGS: Right: Visualization limited by positioning. Common Femoral Vein (CFV): Normal. CFV-GSV Junction: Normal. Profunda Femoral Vein (PFV): Normal. Femoral Vein (FV) Prox: Normal. Femoral Vein (FV) Mid: Normal. Femoral Vein (FV) Dist: Normal. Popliteal Vein: Normal. Posterior Tibial Veins: Not visualized. Peroneal Veins: Not visualized. Left: Visualization limited by positioning. Common Femoral Vein (CFV): Normal. CFV-GSV Junction: Normal. Profunda Femoral Vein (PFV): Normal. Femoral Vein (FV) Prox: Normal. Femoral Vein (FV) Mid: Normal. Femoral Vein (FV) Dist: Normal. Popliteal Vein: Normal. Posterior Tibial Veins: Not visualized. Peroneal Veins: Not visualized. Other: None. IMPRESSION: No evidence of DVT bilaterally. Suboptimal visualization of calf veins bilaterally. RADIA
[2019-02-15 05:35] LABS: BASOPHILS % (AUTO) 0.5 %; EOSINOPHILS # (AUTO) 0.1 10^3/uL (0.0-0.7); EOSINOPHILS % (AUTO) 1.8 %; HGB - HEMOGLOBIN 8.1 g/dL (12.0-16.0); LYMPHOCYTES # (AUTO) 1.4 10^3/uL (1.5-3.5); LYMPHOCYTES % (AUTO) 24.7 %; MEAN CORPUSCULAR HEMOGLOBIN 27.3 pg (27.0-31.0); MEAN CORPUSCULAR HGB CONC 31.4 g/dL (32.0-36.0); MEAN CORPUSCULAR VOLUME 86.9 fL (81.0-99.0); MEAN PLATELET VOLUME 9.8 fL (7.9-10.8); MONOCYTES # (AUTO) 0.5 10^3/uL (0.0-1.0); MONOCYTES % (AUTO) 9.3 %; NEUTROPHILS # (AUTO) 3.6 10^3/uL (1.5-6.6); NEUTROPHILS % (AUTO) 63.5 %; PLT - PLATELET COUNT 215 10^3/uL (130-450); RED BLOOD COUNT 2.97 10^6/uL (4.20-5.40); WHITE BLOOD COUNT 5.6 x10^3/uL (4.8-10.8)
[2019-02-15 05:49] LABS: CALCIUM 8.7 mg/dL (8.5-10.3); CREATININE 1.3 mg/dL (0.4-1.0); PHOSPHORUS 3.1 mg/dL (2.5-4.6)
[2019-02-15] MEDS: CARVEDILOL 12.5 MG TABLET PO SCH ×2 (09:07→20:59)
[2019-02-15] MEDS: HEPARIN 5,000 UNIT/ML VIAL SUBQ SCH ×2 (09:21→20:59)
[2019-02-15] MEDS: SODIUM CHLORIDE FLUSH 0.9% 10 ML SYRINGE IVP SCH ×3 (09:23→17:21)
[2019-02-15] MEDS ORDERED: COD LIVER OIL/ZINC OXIDE 113 GM TUBE TOP PRN (11:36)
--- NOTE | 2019-02-15 18:02 | PROVIDER PROGRESS NOTE ---
Assessment/Plan - Problem List (1) Seizure disorder Assessment/Plan: This afternoon, when the swallowing eval Speech Therapist tried todo eval, she was reported (by RN and her daughter) to be too sleepy to cooperate. They tried to shake her shoulder to wake her and she did not respond. I was called, and fo und her to be obtunded, but she reponded by wincing to a sternal rub and the opened her eyes slightly and tracked me. Then she fell back to sleep. The daughter and grandson then described to me in detail what happened yesterday: The patient was sitting in a wheelchair and as the grandson tipped the wheelchair back slightly to roll it up an incline, at that point the patient rolled her head back and her eyes rolled back and her "eye balls appeared to be jerking". She did not respond to her name being called and seemed to be asleep. There had been no apparent pain, no Valsalva or straining, and no sudden change in her body position. They said this is the typical event she has been having. I called the Neurologist St[facility] Erector at [facility] and described this event and the presentation and history of these events, and that they have been occurring for years! The Neurologist agreed with me that these were most likely petit mal, or absence, seizures and advised and EEG, OK to do as an outpatient and advised starting empiric anti-seizure medication with VAlproic acid 500 g b.i.d. I informed the daughter and grandson of that Neurologist's diagnosis of probable seizures and not syncope (they are at the patient's bedside today all day) and that she will be made an inpatient for monitoring response to medication and further management (of dehydration, for example) and evaluation of swallowing, before she can be accepted at the facility. (2) Alzheimer's dementia with behavioral disturbance Qualifiers: Alzheimer's disease onset: other onset Qualified Code(s): G30.8 - Other Alzheimer's disease; F02.81 - Dementia in other diseases classified elsewhere with behavioral disturbance Assessment/Plan: This is per her record, however I suspect she has times of being post-ictal, which is interpreted as having Alzheimers when she is not communicating. (3) Aortic stenosis Qualifiers: Cardiac valve disease etiology: etiology unspecified Qualified Code(s): I35.0 - Nonrheumatic aortic (valve) stenosis Assessment/Plan: Aortic stenosis may have contributed to orthostasis but now the impression is that of seizure and not syncope. An Echo is still pending. (4) CKD (chronic kidney disease) stage 3, GFR 30-59 ml/min Assessment/Plan: Her iv fell out and was ordered top be stopped, since she may have gone to [facility]. However, the staff from [facility] wants a swallowing eval, which she could not cooperate with today. She will be made an inpatient. Her exam shows dry mucosa. Will restart the iv and start hydration with D5NS now. (5) Hypertension Qualifiers: Hypertension type: essential hypertension Qualified Code(s): I10 - Essential (primary) hypertension Assessment/Plan: He home BP meds on hold especially if she cannot swallow. Will start a topical Clonidine patch or use prn iv BP meds, if BP remains elevated. (6) Weakness Assessment/Plan: This is likely multifactorial: She has been wheelchair bound for a long time then bedbound for 2 weeks, she appears volume depleted and pale (is anemic) and is likely malnourished. No PT eval is planned, if she is not ambulatory. (7) Dysphagia Assessment/Plan: Swallowing eval is planned. The Speech Therapist tried twice today, will recall her. - Current Meds Current Meds: Current Medications Generic Name Dose Route Start Last Admin Trade Name Freq PRN Reason Stop Dose Admin Acetaminophen 1,000 mg 02/14/19 23:51 02/15/19 09:16 Tylenol PO 1,000 mg Q8HR PRN Administration Pain or Fever > 38C (100.4F) Carvedilol 12.5 mg 02/14/19 21:00 02/15/19 09:07 Coreg PO 12.5 mg BID ANGEL Administration Heparin Sodium (Porcine) 5,000 unit 02/14/19 21:00 02/15/19 09:21 SUBQ 5,000 unit BID ANGEL Administration Sodium Chloride 10 ml 02/15/19 01:00 02/15/19 17:21 Normal Saline Flush 0.9% IVP Not Given 0100,0900,1700 ANGEL - Lab Result Fish Bone Diagrams: 02/15/19 04:56 02/15/19 04:56 - Additional Planning My Orders: My Active Orders 02/15/19 Home Health Referral [CONS] Routine Clinical Swallow Evaluation [ST] Routine Wound Consult MAC [MAC] Routine Evaluate and Treat PT [PT] Routine 02/15/19 10:38 IV Discontinuation [RC] .ONCE Telemetry-Discontinue [RC] .ONCE 02/15/19 11:36 Cod Liver Oil/Zinc Oxide [Desitin] 113 gm TOP PRN PRN 02/15/19 18:00 Valproate Inj [Depakene Inj] 500 mg Sodium Chloride 0.9% 100Ml [Normal Saline 0.9% 100Ml] 100 ml IV Q12H 02/16/19 09:05 Echo Transthoracic Complete [ECHO] Routine Subjective - Subjective Patient Reports: Back Pain Nursing Reports: Other (Minimally responsive, lethargic, could not cooperate with swallowing eval) Objective Vital Signs: Vital Signs - 24 hr 02/14/19 02/14/19 02/14/19 19:00 20:57 21:27 Temperature 37.1 C Heart Rate 80 Heart Rate [ 83 79 Brachial] Respiratory 13 18 Rate Blood Pressure 210/124 H Blood Pressure 208/106 H 223/78 H [Left Brachial artery] Blood Pressure [Right Brachial artery] O2 Saturation 98 97 02/14/19 02/14/19 02/14/19 21:30 21:55 22:00 Temperature 37.1 C Heart Rate 78 Heart Rate [ 81 82 Brachial] Respiratory 16 Rate Blood Pressure Blood Pressure 221/80 H 165/83 H [Left Brachial artery] Blood Pressure [Right Brachial artery] O2 Saturation 93 02/14/19 02/14/19 02/14/19 22:16 22:19 22:28 Temperature Heart Rate Heart Rate [ Brachial] Respiratory Rate Blood Pressure Blood Pressure [Left Brachial artery] Blood Pressure 207/81 H 214/79 H 214/79 H [Right Brachial artery] O2 Saturation 02/14/19 02/14/19 02/14/19 22:32 22:48 23:00 Temperature Heart Rate Heart Rate [ 72 Brachial] Respiratory Rate Blood Pressure Blood Pressure [Left Brachial artery] Blood Pressure 187/108 H 172/71 H 157/65 H [Right Brachial artery] O2 Saturation 02/14/19 02/15/19 02/15/19 23:50 00:00 04:22 Temperature 37.1 C 37.1 C 36.7 C Heart Rate Heart Rate [ 69 69 63 Brachial] Respiratory 18 18 16 Rate Blood Pressure Blood Pressure [Left Brachial artery] Blood Pressure 165/67 H 165/67 H 155/69 H [Right Brachial artery] O2 Saturation 96 96 02/15/19 02/15/19 08:00 16:00 Temperature 36.6 C 36.5 C Heart Rate Heart Rate [ 67 65 Brachial] Respiratory 18 18 Rate Blood Pressure Blood Pressure [Left Brachial artery] Blood Pressure 149/63 H 147/61 H [Right Brachial artery] O2 Saturation 97 99 Oxygen O2 Source Room air I&O (Last 24 Hrs): Intake and Output Totals x24h 02/13/19 02/14/19 02/15/19 23:59 23:59 23:59 Intake Total 2000 360 Output Total 75 200 Balance 1925 160 General: Other (Somnolent, opens eyes to name and answers 1-2 words) HEENT: Other (Dry oral mucosa, pale) Neck: Supple, No JVD Neuro: Non Focal, Other (Obtunded, responds to sternal rub) Cardiovascular: Regular rate, No murmurs Respiratory: No respiratory distress, Breath sounds nml Abdomen: Soft Extremities: No edema - Results Results: Laboratory Results WBC 5.6 x10^3/uL (4.8-10.8) 02/15/19 04:56 RBC 2.97 10^6/uL (4.20-5.40) L 02/15/19 04:56 Hgb 8.1 g/dL (12.0-16.0) L 02/15/19 04:56 Hct 25.8 % (37.0-47.0) L 02/15/19 04:56 MCV 86.9 fL (81.0-99.0) 02/15/19 04:56 MCH 27.3 pg (27.0-31.0) 02/15/19 04:56 MCHC 31.4 g/dL (32.0-36.0) L 02/15/19 04:56 RDW 15.0 % (12.0-15.0) 02/15/19 04:56 Plt Count 215 10^3/uL (130-450) 02/15/19 04:56 MPV 9.8 fL (7.9-10.8) 02/15/19 04:56 Neut # (Auto) 3.6 10^3/uL (1.5-6.6) 02/15/19 04:56 Lymph # (Auto) 1.4 10^3/uL (1.5-3.5) L 02/15/19 04:56 [place] # (Auto) 0.5 10^3/uL (0.0-1.0) 02/15/19 04:56 Eos # (Auto) 0.1 10^3/uL (0.0-0.7) 02/15/19 04:56 Baso # (Auto) 0.0 10^3/uL (0.0-0.1) 02/15/19 04:56 Absolute Nucleated RBC 0.00 x10^3/uL 02/15/19 04:56 Nucleated RBC % 0.0 /100WBC 02/15/19 04:56 Sodium 140 mmol/L (135-145) 02/15/19 04:56 Potassium 4.0 mmol/L (3.5-5.0) 02/15/19 04:56 Chloride 108 mmol/L (101-111) 02/15/19 04:56 Carbon Dioxide 22 mmol/L (21-32) 02/15/19 04:56 Anion Gap 10.0 (6-13) 02/15/19 04:56 BUN 25 mg/dL (6-20) H 02/15/19 04:56 Creatinine 1.3 mg/dL (0.4-1.0) H 02/15/19 04:56 Estimated GFR (MDRD) 40 (>89) L 02/15/19 04:56 Glucose 124 mg/dL (70-100) H 02/15/19 04:56 Lactic Acid 1.6 mmol/L (0.5-2.2) 02/14/19 15:17 Calcium 8.7 mg/dL (8.5-10.3) 02/15/19 04:56 Phosphorus 3.1 mg/dL (2.5-4.6) 02/15/19 04:56 Magnesium 2.0 mg/dL (1.7-2.8) 02/15/19 04:56 Total Bilirubin 0.9 mg/dL (0.2-1.0) 02/14/19 15:17 AST 14 IU/L (10-42) 02/14/19 15:17 ALT < 10 IU/L (10-60) L 02/14/19 15:17 Alkaline Phosphatase 56 IU/L (42-121) 02/14/19 15:17 Total Creatine Kinase 87 IU/L (22-269) 02/14/19 15:17 Troponin I High Sens 62.8 pg/mL (2.3-14.8) H* 02/15/19 11:10 Total Protein 7.0 g/dL (6.7-8.2) 02/14/19 15:17 Albumin 3.2 g/dL (3.2-5.5) 02/14/19 15:17 Globulin 3.8 g/dL (2.1-4.2) 02/14/19 15:17 Albumin/Globulin Ratio 0.8 (1.0-2.2) L 02/14/19 15:17 Lipase 34 U/L (22-51) 02/14/19 15:17 Urine Color YELLOW 02/14/19 16:27 Urine Clarity CLEAR (CLEAR) 02/14/19 16:27 Urine pH 6.5 PH (5.0-7.5) 02/14/19 16:27 Ur Specific [place] 1.015 (1.002-1.030) 02/14/19 16:27 Urine Protein TRACE mg/dL (NEGATIVE) 02/14/19 16:27 Urine Glucose (UA) NEGATIVE mg/dL (NEGATIVE) 02/14/19 16:27 Urine Ketones TRACE mg/dL (NEGATIVE) 02/14/19 16:27 Urine Occult Blood NEGATIVE (NEGATIVE) 02/14/19 16:27 Urine Nitrite NEGATIVE (NEGATIVE) 02/14/19 16:27 Urine Bilirubin NEGATIVE (NEGATIVE) 02/14/19 16:27 Urine Urobilinogen 0.2 (NORMAL) E.U./dL (NORMAL) 02/14/19 16:27 Ur Leukocyte Esterase NEGATIVE (NEGATIVE) 02/14/19 16:27 Ur Microscopic Review NOT INDICATED 02/14/19 16:27 Urine Culture Comments NOT INDICATED 02/14/19 16:27 Urine Opiates Screen NEGATIVE (NEGATIVE) 02/14/19 16:27 Ur Oxycodone Screen NEGATIVE (NEGATIVE) 02/14/19 16:27 Urine Methadone Screen NEGATIVE (NEGATIVE) 02/14/19 16:27 Ur Propoxyphene Screen NEGATIVE (NEGATIVE) 08/04/19 16:27 Ur Barbiturates Screen NEGATIVE (NEGATIVE) 02/14/19 16:27 Ur Tricyclics Screen NEGATIVE (NEGATIVE) 02/14/19 16:27 Ur Phencyclidine Scrn NEGATIVE (NEGATIVE) 02/14/19 16:27 Ur Amphetamine Screen NEGATIVE (NEGATIVE) 02/14/19 16:27 U Methamphetamines Scrn NEGATIVE (NEGATIVE) 02/14/19 16:27 U Benzodiazepines Scrn NEGATIVE (NEGATIVE) 02/14/19 16:27 Urine Cocaine Screen NEGATIVE (NEGATIVE) 02/14/19 16:27 U Cannabinoids Screen NEGATIVE (NEGATIVE) 02/14/19 16:27 Ethyl Alcohol 6.5 mg/dL 02/14/19 15:17
[2019-02-15] MEDS: VALPROATE INJ 500 MG in SODIUM CHLORIDE 0.9% 100ML 100 ML IV SCH (18:28)
[2019-02-15] MEDS: DEXTROSE 5%-0.9% NACL 1,000 ML IV SCH (19:41)
[2019-02-16] MEDS: SODIUM CHLORIDE FLUSH 0.9% 10 ML SYRINGE IVP SCH ×5 (00:12→23:58)
[2019-02-16] MEDS ORDERED: cloNIDine 0.1 MG PATCH TOP SCH (01:00)
[2019-02-16] MEDS: VALPROATE INJ 500 MG in SODIUM CHLORIDE 0.9% 100ML 100 ML IV SCH (07:02)
[2019-02-16] MEDS: DEXTROSE 5%-0.9% NACL 1,000 ML IV SCH ×2 (08:45→20:58)
[2019-02-16] MEDS ORDERED: CARVEDILOL 12.5 MG TABLET PO SCH (09:00)
[2019-02-16] MEDS: ACETAMINOPHEN 500 MG TABLET PO PRN ×2 (10:28→20:54)
[2019-02-16] MEDS: ASPIRIN EC 81 MG TABLET PO SCH ×2 (10:28→10:39)
[2019-02-16] MEDS: FOLIC ACID 1 MG TABLET PO SCH ×2 (10:28→10:39)
[2019-02-16] MEDS: FERROUS GLUCONATE 324 MG TABLET PO SCH ×2 (10:29→10:39)
[2019-02-16] MEDS: HEPARIN 5,000 UNIT/ML VIAL SUBQ SCH ×2 (10:31→20:59)
[2019-02-16] MEDS ORDERED: METOPROLOL 5 MG/5 ML VIAL IVP STA (13:17)
[2019-02-16] MEDS: ACETAMINOPHEN 1,000 MG/100 ML 100 ML IV PRN (14:02)
--- NOTE | 2019-02-16 14:52 | ADVANCE CARE PLANNING NOTE ---
Advance Care Planning - Planning Encounter Date: 02/16/19 Time: 14:50 Purpose: 2 daughters, granddaughter, and has been wanted to discuss overall plan Parties in Attendance: , 2 daughters, and 1 of her granddaughters Decisional Capacity of the Patient: Not able to participate in conversation, patient is been having seizures, is on valproic acid, and very sedated. - Encounter Subjective/Patient's Story: This is an unfortunate elderly woman who is probably suffering the consequences of long-term untreated hypertension and any other medical issues. She is origin ally from [place]. Has been once before and has 3 adopted daughters from that first marriage. She remarried about 30 years ago. In the impression the daughters and her current , Alfred, leave me with is that it has been occasionally a tense situation between Alfred and the daughters. It has to do with his ability to take care of her. It has been at least 5 years of a gradual decline. They describe her as a person who would get up at 4:30 in the morning to get her hair and make-up on to be at work by 7 in the morning. She was very, very particular about appearances. 1 of her daughters describes her as a person who grew up in a very wealthy but very private [place] family. They did not speak about their feelings, or philosophy of life, and sometimes it was hard to get a feel for what the patient/mom wanted. But all of her children describe her as very adamant about declining interventions. She hated going to doctors, she did not believe in taking medicines. They started noticing a change in her ability to think clearly. And they really noticed it when she was not taking the care she used to take about getting her hair and make-up on. Around 2012, or 2013, she retired. It started taking longer and longer to get things done because she started developing this off balance, shuffling gait. Her states that she has had high blood pressure for very long time. But she refused to take medications for it. With this shuffling gait came memory loss as well. She would still go shopping with her daughters but a trip would take 12 hours because of her shufflling. But she was still able to recognize them, have meaningful conversations with them. She started having more more difficulty ambulating and needing more help with activities of daily living such as going to the bathroom, or getting her dressed. But she was stubbornly independent and would refuse a lot of help even from her . They started noticing a change in her ability to think clearly. And they really noticed it when she was not taking the care she used to take about getting her hair and make-up on. Around 2012, or 2013, she retired. It started taking longer and longer to get things done because she started developing this off balance, shuffling gait. Her states that she has had high blood pressure for very long time. But she refused to take medications for it. With this shuffling gait has, memory loss. But she was still able to recognize them, I have meaningful conversations with them. She deteriorated enough that she became bedbound in 2018. But he and help were able to transfer her to wheelchairs to get out of bed. has been attempting to take care of her at home and they did hire in-home providers as well as [facility] providers. But the in-home providers quit somewhere in late December or early January 2019 because he would become angry and call them names. Complicating the problem was the back pain of the care provider as well as a spinal stenosis of the patient's . They could not get her out of bed. More more time was spent in bed to the point that the last 2 weeks she has been in bed and not gotten out of bed into a wheelchair. She has developed a decubitus ulcers. In an effort to get her the care she needs, her had made arrangements for her to get to [facility]. She has been seen with numerous emergency room visits for altered mental status, falls. She was hospitalized for acute kidney injury, and a UTI in 08/2018. She was eventually seen by palliative care consultation in August 2018. She had been having dysphagia and was seen by speech therapy and has had a swallow evaluation. Because of that she was started on a pured diet with honey thickened liquids in August. When she got home, however, she hated it, and went back on a regular diet with thin liquids and finally chopped food. Even when seen by palliative care, blood pressure was 223/78. Blood pressure medicines have been changed and adjusted by her primary care provider. But it is not clear that she is been compliant with that. The original thought process is that her wanted her to be a full code. Then with the August 2018 admission he transitioned her to DO NOT RESUSCITATE. He wanted to keep her at home until end of life. But in the last few weeks is been, increasingly difficult to take care of her. With her bedbound status, lack of nutrition, and gradually developing decubitus ulcers, he cannot move her body to take care of her. He cannot protect her bottom since she is incontinent of urine and has frequent diarrhea. She was seen by palliative care in August, September, November, and January. There is a documentation of gradual but severe decline with the patient that was already bedbound. No longer really responding. And the finally realized that he needed to place her and arrangements were made for [facility] to [facility]. She was in a wheelchair after her grandson got her in it. The grandson noted that her eyes rolled back in her head rolled back. And they brought her to the emergency room. She has been noted to have "spells". After phone consult with neurology she is been diagnosed as petit mall seizures. CT of the head shows diffuse white matter changes, old small strokes but nothing acutely severe. While she seemed to be interactive and talkative yesterday, she is very obtunded and sleeping today. This is after valproic acid has been started. Objective/Medical Story: . The overall description seems to be of an elderly, independent woman who is at untreated high blood pressure for decades. This is resulted in vascular disease with white matter disease of the brain and most likely vascular dementia and ongoing brain damage. She can no longer walk, this is due to severe cerebellar ataxia. Is become more more difficult for her to swallow, and to speak. She has been bedbound for a year because of her brain dysfunction. Her past medical history is that of mild aortic stenosis, chronic kidney disease, and a very well documented gradual decline described in the medical record through her various emergency room encounters, most recent admission August 2018, and palliative care consultations. She now appears to be in end-stage disease from her dementia with her dysphasia, dysarthria, and the new diagnosis of seizures. Goals of Care: 1. respect her desire to have as little intervention as possible. 2. Family is concerned because she is so sedated from valproic acid. 3. Daughters would like to see a new POLST form. They would like to have the legal ability to discuss her care with them. There is some contention within the family and that they feel he has dementia and has been unable to take care of her appropriately. They want to know that if anything happens to him, they have the authority to be able to move and into the right thing by their mom. 4. Swallow eval with speech therapy has not been able to be done this admission. She has not been awake enough to do so. Will come home is willing to take this patient as long as family signs a waiver stating that they understand she is at risk for aspiration. Family is willing to do that. This is so that she can get the diet she wants as opposed to a pured diet with honey thickened liquids. Plan: 1. stress comfort measures in our interactions 2. Change to a different seizure medication 3. New POLST form filled out 4. Have family signed waiver for [facility] to allow for regular diet with known risk of aspiration 5. Transfer to [facility] tomorrow Code Status: Do Not Attempt Resuscitation Time spent on advance care plannin
--- NOTE | 2019-02-16 15:28 | PROVIDER PROGRESS NOTE ---
Subjective - Prog Note Date Prog Note Date: 02/16/19 Prog Note Time: 15:27 - Subjective Subjective: Elderly female that I am now on service for. She was admitted February 14 with an episode of syncope. This is in the context of someone who has been failing for probably 5 years, and severely failing for the last 2 years. She has been bedbound for the last year. She is someone who has avoided seeing physicians, taking medications and seems to have had a long history of severe hypertension that was not controlled. She has valvular heart disease with mild aortic stenosis. The end result is a gradually worsening cerebellar ataxia, vascular dementia, dysphagia, and now an episode of syncope on the day of admission. Work-up to date has been blood cultures which were negative, head CT which shows no acute intracranial process. 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 White matter changes that are the sequela of chronic small vessel ischemic disease. Repeat echocardiogram that has not been finally read, shows left ventricular systolic function that is hyperdynamic with an ejection fraction of 75%. Severe increase in left atrial volume index. Mild aortic stenosis. It appears to be grossly unchanged from April 2017 echo. She seems to be having episodes in the hospital that are associated with mild change in mental status that is abrupt and acute. Thought processes that she may be having petit mall seizures. As such she was put on valproic acid. Since being put on seizure drugs, she is been very sedated and unresponsive except to deep sternal rub. Blood pressure continues to be elevated but that is chronic for her. Current Medications - Current Medications Current Medications: Active Medications Acetaminophen (Tylenol) 1,000 mg PO Q8HR PRN PRN Reason: Pain or Fever > 38C (100.4F) Last Admin: 02/15/19 09:16 Dose: 1,000 mg Aspirin (Ecotrin) 81 mg PO DAILY [facility] Last Admin: 02/16/19 10:39 Dose: Not Given Clonidine HCl (Jijbrfjo-Pla-3) 1 patch TOP Q7D [facility] Last Admin: 02/16/19 01:43 Dose: 1 patch Ferrous Gluconate (Fergon) 324 mg PO DAILYWM [facility] Last Admin: 02/16/19 10:39 Dose: Not Given Folic Acid () 1 mg PO DAILY [facility] Last Admin: 02/16/19 10:39 Dose: Not Given Heparin Sodium (Porcine) () 5,000 unit SUBQ BID [facility] Last Admin: 02/16/19 10:31 Dose: 5,000 unit Valproic Acid 500 mg/ Sodium (Chloride) 105 mls @ 100 mls/hr IV Q12H [facility] Last Infusion: 02/16/19 08:05 Dose: Infused Dextrose/Sodium Chloride (D5ns) 1,000 mls @ 83.333 mls/hr IV .Q12H [facility] Last Admin: 02/16/19 08:45 Dose: 83.333 mls/hr Acetaminophen (Ofirmev) 100 mls @ 400 mls/hr IV Q6HR PRN PRN Reason: PAIN Last Infusion: 02/16/19 14:20 Dose: Infused Sodium Chloride (Normal Saline Flush 0.9%) 10 ml IVP PRN PRN PRN Reason: NEEDED PER PROVIDER ORDERS Sodium Chloride (Normal Saline Flush 0.9%) 10 ml IVP 0100,0900,1700 [facility] Last Admin: 02/16/19 10:39 Dose: Not Given Zinc Oxide (Desitin) 113 gm TOP PRN PRN PRN Reason: Skin Care FLUoxetine [PROzac] 10 mg ORAL DAILY 03/29/18 Carvedilol [Coreg] 12.5 - 25 mg PO BIDWM 09/04/18 Nystatin Cream [Mycostatin Cream] 1 ea TOP BID PRN 09/04/18 Objective - Vital Signs/Intake & Output Reviewed Vital Signs: Yes Vital Signs: Vital Signs x48h Temp Pulse Resp BP BP Pulse Ox 02/16/19 14:52 63 184/63 H 02/16/19 14:41 65 197/65 H 02/16/19 14:17 60 192/72 H 02/16/19 14:15 60 191/62 H 02/16/19 14:11 58 L 188/66 H 02/16/19 14:08 58 L 182/83 H 02/16/19 13:57 165/74 H 02/16/19 13:56 68 165/74 H 02/16/19 08:00 37.3 C 66 16 184/57 H 98 Intake & Output: Intake & Output 02/13/19 02/14/19 02/15/19 02/16/19 23:59 23:59 23:59 23:59 Intake Total 1999 769 4010 Output Total 75 300 300 Balance 2279 998 894 - Objective General Appearance: positive: Other ( Laying back quietly, mouth open breathing, responsive to only sternal rub.) Eyes Bilateral: positive: PERRL ENT: positive: Dry mucous membranes Neck: positive: No JVD. negative: Stiff neck, Carotid bruit Respiratory: positive: Chest non-tender, Other (Because of open mouth breathing she has tubular breath sounds). negative: Wheezes, Rales, Rhonchi Cardiovascular: positive: Regular rate & rhythm, Systolic murmur. negative: Gallop/S4, Friction rub (radiates to her carotids and loudest in the right upper sternal border) Abdomen: positive: Non-tender, Nml bowel sounds, No distention Skin: positive: Warm, Dry, Pallor Extremities: positive: No pedal edema Neurologic/Psychiatric: positive: Other (Responds to sternal rub, withdraws to noxious stimuli, no spontaneous speech family states they were talking to her yesterday and she recognize them and was more interactive.) - Lab Results Fish Bones: 02/15/19 04:56 02/15/19 04:56 ABX Reporting Has patient been on IV antibiotics over the past 48 hours?: No Assessment/Plan - Problem List (1) PRES (posterior reversible encephalopathy syndrome) Impression: This is an unfortunate elderly woman who has long-standing untreated hypertension. The lack of treatment may have to do more to do with her than to the patient's true choice in the matter according to her daughter. Adult Protective Services has already been involved. Nevertheless, this woman has changes on CT scan of long-standing hypertension including basal ganglia infarcts, severe white matter disease, and has a history of deteriorating neurological status. She does present with a history of seizures, confusion, but there is no mention of headache or vision loss. I think she is probably had several episodes prior to this one and that severe brain damage has already occurred through these years of no treatment. Plan: Check MRI to make sure that there is not another lesion or acute stroke that I am missing to cause her obtundation change clonidine from 0.1 mg patch to 0.3 mg, may take up to 3 days to take effect. changed carvedilol to IV lopressor since not able to take po add enalapril 1.25 IV q6h with holding parameters. aim for no lower than 140 systolic. (2) Seizure disorder Impression: family feels she is obtunded from the valproic acid. Change to Keppra. (3) Decubitus ulcer of coccygeal region, stage 2 Impression: present on admission and due to being in bed for the last 2-3 weeks with incontinence. Plan: (4) Aortic stenosis Impression: This is not felt to be the cause of her syncope. Echocardiogram was reviewed from April 2017 where she had severe concentric left ventricle hypertrophy, ejection fraction of 75% with systolic function hyperdynamic. Mild aortic stenosis with peak mean pressure gradients of 26/14. Valve area was 1.5 cm. With echo done during this admission she continues to have the same ventricle. Her peak/mean pressure gradients are 25/15 and aortic valve area is 1.56 cm. Qualifiers: Cardiac valve disease etiology: etiology unspecified Qualified Code(s): I35.0 - Nonrheumatic aortic (valve) stenosis (5) CKD (chronic kidney disease) stage 3, GFR 30-59 ml/min Impression: Stable. Creatinine is 1.5 down to 1.3. GFR is 35-40 (6) Failure to thrive in adult Impression: to go to [facility]. Will ask palliative are consult to see her and ask of appropriate to go to Hospice?
--- NOTE | 2019-02-16 16:10 | MRI Report ---
Reason: cheli, acte Procedure Date: 02/16/2019 Accession Number: [id number] / [id number] Procedure: MRI - Brain W/O CPT Code: FULL RESULT: EXAM: MRI BRAIN WITHOUT CONTRAST EXAM DATE: 02/16/2019 03:36 PM. CLINICAL HISTORY: Vianneyeptanisha actnas. Difficult to arouse and wake the patient up. COMPARISON: HEAD W/O 02/14/2019 3:38 PM HEAD W/O 08/15/2018 3:14 PM. TECHNIQUE: Multiplanar, multisequence T1-weighted and fluid-sensitive MR sequences of the brain were performed. Sequences optimized for routine evaluation. Other: None. IV Contrast: None. FINDINGS: Brain Volume: Moderate diffuse atrophy is present. Parenchyma/Dura: An oval 8 mm focus of restricted diffusion is seen in the right temporal lobe at the superior margin of the anterior pole of the temporal horn of the lateral ventricle. Associated hypointense magnetic susceptibility is seen in this focus consistent with petechial hemorrhage. No parenchymal hematoma. No vascular territory restricted diffusion is present. Moderate to marked confluent white matter T2/FLAIR bright signal is seen throughout the cerebral hemispheres. Patchy cystic foci are noted throughout the deep nuclear region bilaterally. Scattered punctate foci of magnetic susceptibility consistent with petechial microhemorrhage are seen in the deep nuclear region as well. Oval cystic focus is seen in the left paramedian mid rafy. Oval linear cystic focus is seen posteriorly in the left cerebellum. Punctate cystic foci are seen anteriorly and superiorly in the right cerebellum. Patchy increased T2 signal is seen in the brainstem. Ventricles/Cisterns: Mild prominence to the ventricular system and overlying cortical sulci is noted. No hydrocephalus. No abnormal extra-axial fluid collection or hemorrhage. Orbits: Symmetric and unremarkable. Sella Turcica: The pituitary gland, cavernous sinuses, suprasellar cistern and optic chiasm are unremarkable. IAC: Symmetric and unremarkable. Vasculature: Normal signal flow void is seen in the major arterial structures at the skull base. Sinuses: No acute appearing sinus disease. Bones: No focal pathologic appearing marrow signal changes. Other: None. IMPRESSION: 1. Moderate diffuse atrophy. 2. Moderate confluent and patchy T2/FLAIR bright white matter signal throughout the cerebral hemispheres and brainstem. This is nonspecific. This can be seen secondary to chronic hypertensive encephalopathy or diffuse small vessel ischemic change. 3. Punctate cystic foci noted in the deep nuclear region bilaterally, left paramedian rafy, and bilateral cerebellar hemispheres. Findings are consistent with sequela of old infarcts. 4. Oval 8 mm focus of restricted diffusion noted in the right temporal lobe superior to the anterior pole of the temporal horn of the lateral ventricle. Associated punctate focus of magnetic susceptibility is seen. This could represent petechial hemorrhage versus small lacunar infarct. No large vascular territory infarct evident. 5. Punctate foci of petechial microhemorrhage seen in the deep nuclear region bilaterally. Findings may represent sequela of hypertension. No parenchymal hematoma. [facility]IA The call report notification system was initiated by Dr. Bill Bess at 03:55 PM on 02/16/2019. The above call report findings were discussed with Kaylyn Norwood by Dr. Bill Bess at 04:05 PM on 02/16/2019.
[2019-02-16] MEDS ORDERED: cloNIDine 0.3 MG PATCH TOP SCH (17:00)
[2019-02-16] MEDS: ENALAPRILAT 1.25 MG/ML VIAL IVP SCH ×2 (17:05→23:58)
[2019-02-16] MEDS ORDERED: ENALAPRILAT 1.25 MG/ML VIAL IVP SCH (18:00)
[2019-02-16] MEDS: levETIRAcetam INJ 500 MG in SODIUM CHLORIDE 0.9% 100ML 100 ML IV SCH (20:54)
[2019-02-17] MEDS ORDERED: BISACODYL 10 MG SUPP PR ONE (00:09)
[2019-02-17] MEDS: ENALAPRILAT 1.25 MG/ML VIAL IVP SCH (06:31)
[2019-02-17] MEDS ORDERED: SENNA 8.6 MG TABLET PO SCH (09:00)
[2019-02-17] MEDS: DEXTROSE 5%-0.9% NACL 1,000 ML IV SCH (09:22)
[2019-02-17] MEDS: ASPIRIN EC 81 MG TABLET PO SCH (09:22)
[2019-02-17] MEDS: FOLIC ACID 1 MG TABLET PO SCH (09:22)
[2019-02-17] MEDS: FERROUS GLUCONATE 324 MG TABLET PO SCH (09:27)
[2019-02-17] MEDS: levETIRAcetam INJ 500 MG in SODIUM CHLORIDE 0.9% 100ML 100 ML IV SCH (09:51)
[2019-02-17] MEDS: SODIUM CHLORIDE FLUSH 0.9% 10 ML SYRINGE IVP SCH (09:52)
[2019-02-17] MEDS: HEPARIN 5,000 UNIT/ML VIAL SUBQ SCH (10:06)
--- NOTE | 2019-02-17 10:17 | Discharge Plan ---
"Discharge Plan for SNF / JE - Discharge Plan And Transition Orders Problem Reviewed?: Yes Disposition: 01 Home, Self Care Condition: Poor Allergies and Adverse Reactions: Allergies Allergy/AdvReac Type Severity Reaction Status Date / Time No Known Drug Allergies Allergy Verified 02/14/19 15:00 Health Concerns: Because of your memory loss, we are giving this report to your family. You were brought into the hospital with a history of failing at home due to balance, memory, and brain damage from untreated high blood pressure. It is gone to the point where you would no longer getting out of bed for the last couple of weeks and you are developing pressure ulcers and malnutrition. You were brought to the hospital today because you passed out in the wheelchair. Plan of Treatment: A CAT scan of your head was done to see if you had any new changes. You do not have any new strokes. However, you have old strokes that are in all parts of your brain from your previous high blood pressure. We did an brain MRI and that shows that you have many, many small dot-like hemorrhages of your brain. Again most likely because of untreated high blood pressure. We started treating you as possible seizures with valproic acid. You did not do well with valproic acid because it made you too sleepy and we switched you to Keppra. Since her is not able to take care of you because of his spine problems and that you require 24/7 care, you will be transferred to [facility]. We are asking Palliative Care (who has seen you monthly in your home) to consider transitioning you to hospice since not much more can be done to treat your brain damage. Care Goals: To be kept comfortable as possible. To be kept as pain-free as possible. Although you cannot swallow normally, we are having your family signed a waiver that says [facility] can feed you what you would like to eat. We know that you have a risk of aspiration, but you do not like to eat that food that is pured. As such you will be sent to [facility] with a regular diet and with medicines that you can hopefully swallow. Assessment: Family understands the plan of care and agrees. Her , power of employee benefits attorney, is agreed to let her daughters be aware of our treatment plan. He also agrees that she is to be DO NOT RESUSCITATE. He also agrees that daughters can be called and kept apprised of her medical condition while at [facility]. Since the patient has severe cognitive deficits and poor memory, these instructions are given to her family members - SNF / JE Transition Orders Admit to (Facility): [facility] Under the care of (Name): Sarah Gatica, [id number] Discharge Diagnosis: 1. 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 Failure to thrive with dysphasia and a aphasia and cognitive deficits 3. Hypertension 4. Pressure ulcer of sacral region, stage II, present on admission and discharge 5. Mild aortic stenosis 6. Chronic kidney disease stage III 7. Petit mal seizures, present on admission Weight on admission and: Weekly Other Notification Orders: Call PCP immediately if patient develops dyspnea, chest pain/tightness or edema. House Bowel Program: Yes Additional Bowel Program Orders: If no BM after 2 days, nurse may give M.O.M. 30ml PO PRN and/or ducolax Supp 1 MO and/or TRACE 250mg P.O., and/or senna 1-2 tabs PO. On day 3 nurse may give repeat above order until residents constipation is resolved. Annual Influenza Vaccine (between Mar 14 and October 11): Yes Two-step PPD per [facility] [id number] or approved exception documents: Yes Medication Orders: PLEASE REFER TO THE DISCHARGE MEDICATION LIST. Insulin Orders?: No - Medications New Prescriptions: Acetaminophen [Tylenol] 650 mg MO Q6H PRN #40 supp PRN Reason: Fever > 100.5 F cloNIDine 0.3 MG PATCH [Aulrejor-Azz-7] 1 patch TOP Q7D #4 patch Cod Liver Oil/Zinc Oxide [Desitin] 113 gm TOP PRN PRN #1 tube PRN Reason: Skin Care Levetiracetam [Keppra] 500 mg PO BID #300 ml - Diet Type: Geriatric Texture: Regular Liquids: Thin May have monthly special meal: Yes - Therapies | Activity Activity: Activity as Tolerated Assistance Devices: Wheelchair"
[2019-02-17] MEDS: ACETAMINOPHEN 1,000 MG/100 ML 100 ML IV PRN (10:43)
[2019-02-17 12:18] VITALS: BP 152/63
--- NOTE | 2019-02-25 16:50 | DISCHARGE SUMMARY ---
Physician: Kaylyn Norwood MD DATE OF ADMISSION: 02/15/2019 DATE OF DISCHARGE: 02/17/2019 DISCHARGE DIAGNOSES 1. Posterior reversible encephalopathy syndrome. 2. Uncontrolled hypertension. 3. Seizure disorder. 4. Decubitus ulcer of coccyx, stage II. 5. Aortic stenosis. 6. Chronic kidney disease, stage 3. 7. Failure to thrive. 8. Vascular dementia. 9. Neurologic dysphagia. DISCHARGE MEDICATIONS 1. Carvedilol 25 mg p.o. b.i.d. 2. Nystatin cream b.i.d. 3. Tylenol 650 mg p.o. every 4 hours p.r.n. pain, fever, headache. 4. Clonidine patch 0.3 mg q.7 days. 5. Cod liver oil with Desitin cream topically daily p.r.n. 6. Keppra 500 mg p.o. b.i.d. PRINCIPAL PROCEDURES 1. Head CT: No definite infarct. If there is clinical concern for acute stroke, an MRI would be co nsidered. No intracranial hemorrhage, mass, or hydrocephalus. Old chronic lacunar infarcts involvin g the bilateral basal ganglia are similar to CT of the head 08/15/2018. There is additional white ma tter changes that appear similar to prior study and may represent sequela of chronic small vessel dis ease. 2. Hip pelvis x-ray with diffuse demineralization, no acute fracture. If there is a high clinical s uspicion for fracture, consider CT or MRI. 3. Venous duplex without thrombosis. 4. Brain MRI: Diffuse atrophy. Moderate confluent and patchy FLAIR signal throughout the cerebral hemispheres and brainstem. Nonspecific. Could be secondary to chronic hypertensive encephalopathy o r diffuse small vessel ischemic changes. Punctate cystic foci in the deep nuclear region bilaterally , left paramedian rafy, bilateral cerebellar hemisphere. Findings consistent with sequela of old inf arcts. Oval 8 mm focus of restricted diffusion in the right temporal lobe superior to the anterior p ole of the right temporal horn of the lateral ventricle representing petechial hemorrhage versus smal l lacunar infarct. No large vascular territory infarct evident. Punctate foci of petechial micro he morrhage seen in the deep nuclei regions bilaterally. 5. Blood cultures, no growth after 2 days. 6. Echocardiogram: Severe LVH with normal systolic function, ejection fraction 65%. Moderate diast olic dysfunction and left atrium, mild to moderately dilated. Mild calcified aortic valve with mild stenosis and trace regurgitation. Peak velocity 2.5 m2 and the valve area is 1.6 cm2. Normal pulmon paula pressure. HISTORY OF PRESENT ILLNESS: She is a 78-year-old female who has a past medical history significant f or uncontrolled hypertension, chronic kidney disease, aortic stenosis and dementia, who presents from home after she had an episode of unresponsiveness today. The background social history on this collette ent is that she is to her second . He has definitive ideas about doctors and taking t heir pills. His is an amenable person who has usually gone with her 's decision even whe n it was about her own healthcare. This is from her daughter's history. Over the last few years, pepper lovell has been admitted several times with high blood pressure, but not always consistently on her medica tion. She has been gradually failing with dementia. There has been a falling out, and her daughters have been not allowed to see her because her has felt cornered. He has been trying to take over as she has failed at home with her dementia, imbalance, and falls. It has gotten to be too much because he has terrible back pain. He did hire an in-home support provider, but that person is also physically unable to lift this patient. As such, they were getting ready to make her a resident at [facility]. Today, as she was in a wheelchair, and transferring her from her car to a wheelchair, her eyes rolled in the back of her head, and she was unresponsive for 5 minutes. She was confused fo r a minute after the episode and then became oriented. She has been having similar episodes over the last few years, but they occurred so briefly, occurring once a week. This episode lasted longer raissa n usual. The caregiver that has been helping her , left a week ago. Over the last week, she has been mainly in bed. She has not been eating much, and appetite is poor in general. She has not been taking her medications because swallowing is difficult. She is followed by palliative care. In the emergency room, her vitals were significant for high blood pressure with a systolic blood pres sure in the 200s. CT of the head showed old infarct, but no acute process. Her labs were unremarkab le and were at baseline. She was placed in observation because of the syncope. HOSPITAL COURSE: She had another episode of eyes rolling in her head being briefly unresponsive. Pepper lovell was felt to be having a type of petite mal seizures after the hospitalist service contacted [facility] neurology. As such, she was started on valproic acid, but became so sleepy on valproic acid, the doug stokes was even more distressed. As such, she was switched to Keppra and became more alert. She was m alnourished, dehydrated, and had evidence of mild worsening of chronic kidney disease with a creatini ne of 1.5. Baseline is usually 1.1 or 1.2. High sensitivity troponins were done during her stay, bu t not felt clinically significant. There were 49.3, 65.4, 79.2, and 62.8. These are all above the n ormal of 14.8, but again these are super sensitive and simple high blood pressure, such as her blood pressure could cause this rise. She was started on antihypertensives that she did not have to swallow. She has had several swallow e valuations in the past, and she is felt to have overall cognitive deficit and neurological deficit re sulting in her inability to swallow. When she presented to the hospital, she already had a decubitus coccyx ulcer, stage II, that received routine care management while here. Her aortic stenosis was n oted on echo, but is not felt to be severe enough to give her syncope. Since the patient was already being transitioned to [facility], the patient was discharged to [facility] after being evaluated by physical therapy. Throughout her stay, patient was quite somnolent, difficult to wake up. Family also decided, in spite of dysphagia and possible risk of aspiration, t hat the patient really disliked pureed foods and wanted regular water and regular food for her when s he woke up. As such, they were willing to sign a waiver for [facility]. Right now, she is comfort measures to be emphasized. DO NOT RESUSCITATE, but when the time comes, she may be a candidate for hospice. Both family (her 2 daughters) and the palliative healthcare management consultant feel that the patient has just been in a poor environment up until now. If given appropriate hygiene, appropriate medication, and with physical therapy, she may actually improve at [facility], and extend her quality of life i n time. She is discharged in stable condition. PHYSICAL EXAMINATION VITAL SIGNS: Temperature 36.2, pulse 64, blood pressure 152/63, respirations 16, and 98% on room air . She is an awake, but very sleepy, elderly woman who will open her eyes to my voice and to her chil dren's voice and answer simple yes and no, but very sedated and lethargic. NECK: Supple. LUNGS: Clear to auscultation and percussion. CARDIAC: PMI is slightly laterally displaced with a hard knocking S1, S2 and a systolic ejection mur mur that radiates to the carotids. ABDOMEN: Hypoactive bowel sounds, nontender. No masses palpable. EXTREMITIES: Her extremities have ecchymosis from the multiple sticks and bruises. No edema is pres ent. GENITOURINARY: Urine is dark, concentrated, she is occasionally incontinent. SKIN: Her decubitus ulcer is noted as just simple shearing of skin. Greater than 30 minutes was spent coordinating discharge. Hopefully, she will be stabilized at [facility]. Continued to be followed by palliative care. TD: 02/25/2019 15:04
== END 2019-02-17 12:41 | disposition home or self-care (01) | DRG 71 ==
LOC: EDUNIT# → ED 14:50 → UNDOADMOB 20:08 → MS2 20:08 → OBSVTOIN 02-15 18:02
PROVIDERS: ADMIT Internal Medicine; ATTEND Specialist
DX: I67.83 Posterior reversible encephalopathy syndrome (principal); R53.1 Weakness; M25.552 Pain in left hip; M81.0 Age-related osteoporosis without current pathological fracture; F02.81 Dementia in other diseases classified elsewhere, unspecified severity, with behavioral disturbance; G11.9 Hereditary ataxia, unspecified; F01.51 Vascular dementia, unspecified severity, with behavioral disturbance; R47.01 Aphasia; E46 Unspecified protein-calorie malnutrition; G40.A09 Absence epileptic syndrome, not intractable, without status epilepticus; F32.9 Major depressive disorder, single episode, unspecified; G82.20 Paraplegia, unspecified; R15.9 Full incontinence of feces; E86.0 Dehydration; L89.152 Pressure ulcer of sacral region, stage 2; R55 Syncope and collapse; G30.8 Other Alzheimer's disease; I35.0 Nonrheumatic aortic (valve) stenosis; I13.10 Hypertensive heart and chronic kidney disease without heart failure, with stage 1 through stage 4 chronic kidney disease, or unspecified chronic kidney disease; Z87.891 Personal history of nicotine dependence; Z79.899 Other long term (current) drug therapy; N18.3 Chronic kidney disease, stage 3 (moderate); D64.9 Anemia, unspecified; R13.10 Dysphagia, unspecified; R47.1 Dysarthria and anarthria; T44.7X6A Underdosing of beta-adrenoreceptor antagonists, initial encounter; Z91.138 Patient's unintentional underdosing of medication regimen for other reason; Y92.009 Unspecified place in unspecified non-institutional (private) residence as the place of occurrence of the external cause; R40.0 Somnolence; T42.6X5A Adverse effect of other antiepileptic and sedative-hypnotic drugs, initial encounter; Y92.230 Patient room in hospital as the place of occurrence of the external cause; R32 Unspecified urinary incontinence; R62.7 Adult failure to thrive; Z51.5 Encounter for palliative care; Z66 Do not resuscitate; Z87.440 Personal history of urinary (tract) infections; Z91.11 Patient's noncompliance with dietary regimen; Z74.01 Bed confinement status; Z86.73 Personal history of transient ischemic attack (TIA), and cerebral infarction without residual deficits; Z91.81 History of falling; Z68.23 Body mass index [BMI] 23.0-23.9, adult
CPT/HCPCS: 36415; 51701; 70450; 70551; 73502; 80048; 80053; 81003; 82550; 83605; 83690; 83735; 84100; 85025; 87040; 93005; 93306; 93970; 96361; 96372; 96374; 99285; A9270; G0378; J0131; 80306; 80320; 81001; 87086

== ENCOUNTER 2019-02-17 12:35 | Outpatient (CLI) | payer MEDICARE, MEDICAID | END 2019-02-17 12:36 | disposition home or self-care (01) | LOC: EMS 12:35 | PROVIDERS: ATTEND Surgery | DX: Z74.01 Bed confinement status (principal) | CPT/HCPCS: A0425; A0428 ==

== ENCOUNTER 2019-02-18 13:20 | Outpatient (CLI) | payer MEDICARE, MEDICAID ==
--- NOTE | 2019-02-18 18:22 | CONSULTATION NOTE ---
Palliative Care Follow Up - Referral Referring Provider: Dr Nugent Time of Visit: Christina 02/18/2019. 13:20 - 14:30 Referral setting: Assisted living ([facility]) Referral Reason: Seizure, vascular dementia - History of Present Illness Update Brief HPI Update: 78-year-old female with dementia and significant decline over the past few years, including loss of ambulation in January 2018. Patient's transfer into assisted living was delayed by two days when she was admitted to hospital this week for what appears to be petit mal, or absence seizures. 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 Patient has been residing at home with spouse, Alfred, in poor living conditions. Her fulltime [employer] caregiver suddenly quit earlier in December or January, and the patient ended up completely bedbound due to physical limitations of both spouse and a new, interim caregiver. They did not provide appropriate care, there were poor conditions and logistics in her living space, and because they could not move or reposition her properly, she developed a stage II coccyx pressure wound. Alfred realized he was no longer physically able to properly care for the patient at home, and worked with the patient's [facility] shelter case manager to place the patient at [facility]. She was scheduled to move there on 02/15/19. On 02/14/19, while being transferred into the car by her grandson, the patient had an episode of unresponsiveness, with her eyes rolling to the back of her head. This episode lasted 5 minutes. She had been having similar but briefer episodes for several years. They called 911 and she was admitted to hospital. Hospitalist consulted with [place] neurology and from the patient's history (she'd been having short e pisodes for years) neurology agreed they were most likely petit mal, or absence, seizures. Patient was started on valproic acid, which over sedated her, and then switched to Keppra. She was started on topical clonidine for untreated high blood pressure she's had for decades. The untreated high blood pressure resulted in vascular disease with white matter disease of the brain and most likely vascular dementia and ongoing brain damage. She has been non-ambulatory since January 2018 because of her brain dysfunction. It's also difficult for her to swallow and to speak. They weren't able to do a swallow evaluation during this hospitalization, but she had one back in Aug and was started on a pured diet with honey thickened liquids. She hated it, and went back on a regular diet with thin liquids and finely chopped food. Her family wants to keep her on a diet she wants while she is at [facility] and signed a waiver to accomplish this, understanding she is at risk for aspiration. She developed coccyx pressure wounds from being incontinent and bedbound for the past several weeks, due to spouse's and caregiver's inability to actually move or reposition her body. During this hospitalization, there was a family care conference with Dr Norwood, two of the patient's daughters, her granddaughter and her . The daughters would like to have the legal ability to discuss her care with the spouse. There is some contention between the family and the spouse because he has been unable to properly care for her. They want to know they have the authority to be involved in medical decisions. Patient's spouse has said he is agreeable to this. The daughters want to respect the patient's desire to have as little intervention as possible. Today's palliative care visit takes place at [facility]. The patient was transferred here yesterday afternoon. Daughter Josesito and grandson Ty are present Patient recognizes me, and answers one or two questions with more than her normal "yes" or "no." Patient has had a shower and a shampoo, she is looking much improved from last week's visit. Staff are able to get her up in her wheelchair using either a 2-person manual t toribiosconstantino, or the Dayana lift. Ty the grandson has requested that they use the Dayana. Patient's lunch was brought and she tried feeding herself; movements are extremely slow and deliberate and she didn't end up eating much. Soniya the nursing hospitality house supervisor confirmed that staff will be feeding her. They will be serving her a regular diet, since the family has signed a waiver for that. The kitchen staff don't cut up her food, so the caregivers who feed her will do that. Social History - Living Situation Living arrangement: Assisted living (Just moved in to [facility]) Living Situation: With caregiver(s) Support System: Spouse Alfred Crump is DPOA, [phone]. He has agreed during the hospital family care conference that daughters can share some decision making capacity over the patient's care. Patient's family: Lorena Salazar, daughter, mobile [phone], [place] Garcia, daughter, lives in [place]. Josesito, daughter, lives in [facility]. Ty Means, grandson, mobile [phone], lives in [place]. Medications/Allergies - Medications Home Medications: Ambulatory Orders Medication Instructions Recorded Confirmed Acetaminophen [Tylenol] 650 mg PO Q4HR PRN tablet 08/20/18 02/19/19 Carvedilol [Coreg] 12.5 - 25 mg PO BIDWM 09/04/18 02/19/19 Nystatin Cream [Mycostatin Cream] 1 ea TOP BID PRN 09/04/18 02/19/19 Acetaminophen [Tylenol] 650 mg NH Q6H PRN #40 supp 02/17/19 02/19/19 Cod Liver Oil/Zinc Oxide [Desitin] 113 gm TOP PRN PRN #1 tube 02/17/19 02/19/19 Levetiracetam [Keppra] 500 mg PO BID #300 ml 02/17/19 02/19/19 cloNIDine 0.3 MG PATCH 1 patch TOP Q7D #4 patch 02/17/19 02/19/19 [[id number]] - Allergies Allergies/Adverse Reactions: Allergies Allergy/AdvReac Type Severity Reaction Status Date / Time No Known Drug Allergies Allergy Verified 02/14/19 15:00 Review of Systems - Constitutional Constitutional: reports: Weakness, Weight loss (150.1 lbs 02/18/19. 167/lbs 08/16/18, BMI 32.7. 199 lbs 05/10/17.). denies: Fever - Ears, Nose & Throat Ears, Nose & Throat: reports: Hearing loss - Cardiovascular Cardiovascular: reports: Edema (mild) - Respiratory Respiratory: denies: Cough - Gastrointestinal Gastrointestinal: reports: Other (Patient just moved in. She demonstrated interest in eating her lunch and attempted to feed herself.). denies: Constipation - Genitourinary Genitourinary: reports: Incontinence - Musculoskeletal Musculoskeletal: reports: Limited range of motion, Assistive devices (wheelchair), Transfer issues (Dayana lift preferred by family. 2-person transfer also works, depending on the caregivers.) - Integumentary Integumentary: reports: Other (stage II pressure wounds on coccyx, Home Health ordered) - Neurological Neurological: reports: General weakness, Memory problems, Pre-existing deficit - Psychiatric Psychiatric: denies: Aggitation, Behavior disturbances - Other Findings Other Findings: Limited ROS due to advanced dementia. Physical Exam - Vital Signs Temperature: 96.2 F Pulse Rate: 53 O2 Saturation: 98 (room air) Blood Pressure: 165/101 (chronic HTN x decades) - Physical Exam General Appearance: positive: No acute distress, Alert Eyes Bilateral: positive: Normal inspection ENT: positive: No signs of dehydration Neck: positive: Trachea midline Cardiovascular: positive: Regular rate & rhythm, Systolic murmur (2/6) Respiratory: positive: No respiratory distress, Diminished in bases Skin: positive: Pressure wound (coccyx) Extremities: positive: Pedal edema (1+) Neurologic/Psychiatric: positive: Disoriented to time, Flat affect Palliative Care - POLST Patient has POLST: Yes POLST Status: DNR, Comfort Measures Pain: No pain Tiredness/Fatigue: Mild (1-3) Anorexia: None Constipation: No Performance Status: able to sit in wheelchair unable to reposition self Dayana lift for transfers dependent for all ADLs some ability to feed self, hold fork incontinent FAST 7D - Palliative Care Discussion: Both Ty (grandson) and Josesito (daughter) are very relieved that the patient has been moved out of her home. Josesito was tearful and upset about what her mother experienced up to now. There are complicated family dynamics; has been a schism between the spouse and the patient's family since 2016, when the spouse didn't allow the patient's daughters into his house any more. Prior to that daughters were involved in taking her to medical appiontment and PT where they said she was starting to walk a little more. After the schism, Ty was able to continue coming to the house but admits it was unpleasant. The family is upset by the inappropriate level of care the patient had been receiving recently. The medical notes from the family conference mention signing a new POLST; however, the POLST on file is still the one signed in Aug 2015 (DNR, comfort care). The patient's daughters want the authority to be able to make decisions on their mother's behalf if anything happens to the spouse. That would not be the POLST, but a medical Power of Interior Design Faculty Member. I did provide a blank POA form to Ty with explanation. I have followed up with [facility] Stephy to find out who can confer co-DPOA status, the spouse? Ty plans to look into the possibility of moving her into another facility with more spacious. The family feels the rooms are too small at [facility]. They would need a facility that accepts Medicaid, and are interested in [facility]. The family reports that the patient was always adamant about declining medical interventions, hated to go to the doctors and didn't believe in taking medications. They do want to honor the patient's wishes to have minimal inter ventions. Hospice was discussed, but it's too soon to say if she meets the medical criteria for Hospice; she hopefully could have a stabilization of her status now that she is in an environment where she'll receive appropriate care. Results - Lab Results Lab results reviewed: Yes Impression and Recommendations - Palliative Care Impression: 78-year-old female with dementia and significant decline over the past few years, including loss of ambulation in January 2018. Recently the patient's last chalker caregiver suddenly quit, and patient's spouse could no longer provide appropriate care for the patient or physically move or reposition her, even with the help of an interim paid caregiver, and she developed coccyx pressure wounds from being bedbound and incontinent. Her [facility] case hardener was able to place her in [facility] and she moved in yesterday. Just prior to moving into the [facility], she had a petit mal seizure and was hospitalized. Recommendations/Counseling Done: Stage II pressure wounds on sacrum area: Palliative Care recommended HH RN for wound care after the 02/09. After patient was hospitalized, hospitalist considered the order, then decided on Palliative Care with possible referral to Hospice is appropriate. Currently there is no order for HomeHealth. Will coordinate with facility staff for wound care and monitoring progression of coccyx wound, now that patient is no longer bed bound and will receive regular repositioning. Follow up next week on status of coccyx wound. Dementia: Stable with slow decline. MRI in hospital shows evidence of old strokes in all parts of the the brain from decaded of untreated hypertenion, ultimately causing brain damage. Fluoxetine was discontinued in hospital, no current indications of need to restart. Monitor for indications mood and behavior change HTN: Chronically elevated for years, patient didn't believe in medications and frequently refused them. Topical clonidine started in hospital. Also continue carvedilol. Seizure disorder: Valproic acid was initially started in the hospital, but was over-sedating. Hospital switched her to Keppra 500mg oral solution. Dysphagia: Family signed waiver for [facility] for regular diet with known risk of aspiration. Advance care planning: POLST is DNR and comfort care. Family wants to honor patient's wishes for minimal interventions and stress comfort care. Daughters want authority for input on medical decisions, this would require adding them as co-DPOAs. Stephy Garcia, lumber stacker, is following up on what is needed to effect that; does patient's spouse have authority to add them as co-DPOAs? Spouse stated his agreement to the shared authorization during the family conference in hospital, and also to Palliative Care provider on a telephone call. Palliative care will monitor patient with the hope that the new environment, frequent repositioning, and receiving appropriate care will resolve the pressure wound, and improve and stabilize her condition. Plan: follow up next week and hand off the oversight of the patient to primary Palliative Care provider. Time Spent: 70 minutes were spent with more than 50% of the time spent on counseling, education, providing anticipatory guidance and coordination of care with facility nursing.
== END 2019-02-18 13:21 | disposition home or self-care (01) ==
LOC: PC 13:20
PROVIDERS: ATTEND Nurse Practitioner
DX: Z51.5 Encounter for palliative care (principal); L89.152 Pressure ulcer of sacral region, stage 2; F03.90 Unspecified dementia, unspecified severity, without behavioral disturbance, psychotic disturbance, mood disturbance, and anxiety; I10 Essential (primary) hypertension; R90.82 White matter disease, unspecified; G40.909 Epilepsy, unspecified, not intractable, without status epilepticus; R13.10 Dysphagia, unspecified; Z79.899 Other long term (current) drug therapy; Z99.3 Dependence on wheelchair; Z66 Do not resuscitate

== ENCOUNTER 2019-03-26 21:55 | Outpatient (CLI) | payer MEDICARE, MEDICAID | END 2019-03-26 21:56 | disposition critical access hospital (66) | LOC: EMS 21:55 | PROVIDERS: ATTEND Surgery | DX: S01.312A Laceration without foreign body of left ear, initial encounter (principal); W19.XXXA Unspecified fall, initial encounter; Y92.092 Bedroom in other non-institutional residence as the place of occurrence of the external cause | CPT/HCPCS: A0425; A0429 ==

== ENCOUNTER 2019-03-26 22:12 | Emergency (ER) | payer MEDICARE, MEDICAID ==
--- NOTE | 2019-03-26 22:45 | ED Physician Documentation ---
PD HPI FOCAL NEURO - Stated complaint Stated Complaint: Fall - Chief complaint Chief Complaint: Neuro - History obtained from History obtained from: Family (daughter Lorena), EMS - History of Present Illness Timing - onset: Today (78-year-old woman in comfort care, dementia, she fell at home place today. It was an unwitnessed fall. Daughter relates this to her not having bedrails on her bed and needs an order for that. She has a laceration on the left earlobe. No other obvious injuries. The patient is without specific complaints.) Review of Systems Unable to obtain: Dementia PD PAST MEDICAL HISTORY - Past Medical History Past Medical History: Yes Cardiovascular: Hypertension, High cholesterol, Murmur, Valve disorder, Other Respiratory: None Neuro: Alzhiemer's, Dementia, CVA, Tremors Endocrine/Autoimmune: None GI: GERD, Chronic diarrhea TECHNOLOGY SPECIALIST: None : Incontinence, Chronic bladder infection, Nocturia, Frequency HEENT: Chronic vision loss, Chronic hearing loss Psych: Depression Musculoskeletal: Osteoarthritis, Paraplegia, Fatigue Derm: None - Past Surgical History Past Surgical History: Yes Derm: Skin cancer surgery - Present Medications Home Medications: Ambulatory Orders Medication Instructions Recorded Confirmed Acetaminophen [Tylenol] 650 mg PO Q4HR PRN tablet 08/20/18 03/26/19 Carvedilol [Coreg] 12.5 - 25 mg PO BIDWM 09/04/18 03/26/19 Nystatin Cream [Mycostatin Cream] 1 ea TOP BID PRN 09/04/18 03/26/19 Acetaminophen [Tylenol] 650 mg MD Q6H PRN #40 supp 02/17/19 03/26/19 Cod Liver Oil/Zinc Oxide [Desitin] 113 gm TOP PRN PRN #1 tube 02/17/19 03/26/19 Levetiracetam [Keppra] 500 mg PO BID #300 ml 02/17/19 03/26/19 cloNIDine 0.3 MG PATCH 1 patch TOP Q7D #4 patch 02/17/19 03/26/19 [[id number]] Bedrails 1 unit TD ONCE #1 03/26/19 - Allergies Allergies/Adverse Reactions: Allergies Allergy/AdvReac Type Severity Reaction Status Date / Time No Known Drug Allergies Allergy Verified 03/26/19 22:19 - Social History Does the pt smoke?: No Smoking Status: Never smoker Does the pt drink ETOH?: Yes Does the pt have substance abuse?: No - Immunizations Immunizations are current?: No Immunizations: TDAP >10years/unknown - POLST Patient has POLST: Yes POLST Status: DNR PD ED PE NORMAL - Vitals Vital signs reviewed: Yes - General General: Other (She is oriented to person only, she says she remembers the fall but cannot really come up with any details.) - HEENT HEENT: PERRL, Other (1 cm laceration on the earlobe on the left, not through and through. No cartilaginous involvement.) - Neck Neck: Supple, no meningeal sign, No bony TTP - Neuro Neuro: clinical pathologist 2-12 intact Eye Opening: Spontaneous Motor: Obeys Commands Verbal: Confused GCS Score: 14 Results - Vitals Vitals: Vital Signs - 24 hr 03/26/19 22:13 Temperature 36.6 C Heart Rate 55 L Respiratory 16 Rate Blood Pressure 208/76 H O2 Saturation 96 Oxygen O2 Source Room air Procedures - Laceration (location) L earlobe Length in cm: 1 Wound type: Linear Wound Preparation: Irrigated copiously NS Skin layer closure: Dermabond Other: Tetanus UTD Complexity: Simple PD MEDICAL DECISION MAKING - ED course ED course: 78-year-old woman with dementia presents after a fall at [facility]. Daughter says she needs bedrails on the bed which she asked me to write an order for and I am happy to do so. We discussed goals of care and potential advanced imaging of her head and/or C-spine, daughter feels that results would not be aggressively intervened upon and after discussion declined such testing. The earlobe was Dermabond did. Patient tolerated this well. PCS back to [facility] was filled out given her bedbound status. Departure - Departure Disposition: 01 Home, Self Care Clinical Impression: Fall Qualifiers: Encounter type: initial encounter Qualified Code(s): W19.XXXA - Unspecified fall, initial encounter Laceration of earlobe Qualifiers: Encounter type: initial encounter Laterality: left Qualified Code(s): S01.312A - Laceration without foreign body of left ear, initial encounter Condition: Stable Record reviewed to determine appropriate education?: Yes Instructions: ED Laceration Facial Skin Glue Prescriptions: Bedrails 1 unit TD ONCE #1
[2019-03-26] MEDS ORDERED: cloNIDine 0.1 MG TABLET PO STA (22:48)
[2019-03-26 23:03] VITALS: BP 192/81
== END 2019-03-26 23:14 | disposition home or self-care (01) ==
LOC: EDUNIT# → ED 22:12
DX: S01.312A Laceration without foreign body of left ear, initial encounter (principal); W19.XXXA Unspecified fall, initial encounter; Y92.199 Unspecified place in other specified residential institution as the place of occurrence of the external cause; I10 Essential (primary) hypertension; G30.9 Alzheimer's disease, unspecified; F02.80 Dementia in other diseases classified elsewhere, unspecified severity, without behavioral disturbance, psychotic disturbance, mood disturbance, and anxiety
CPT/HCPCS: 12011; 99281; 99283; A9270

== ENCOUNTER 2019-03-26 22:30 | Outpatient (CLI) | payer MEDICARE, MEDICAID | END 2019-03-26 22:31 | disposition home or self-care (01) | LOC: EMS 22:30 | PROVIDERS: ATTEND Surgery | DX: S01.312A Laceration without foreign body of left ear, initial encounter (principal); Z74.01 Bed confinement status | CPT/HCPCS: A0425; A0428 ==

== ENCOUNTER 2019-03-30 11:00 | Outpatient (CLI) | payer MEDICARE, MEDICAID ==
--- NOTE | 2019-03-30 17:55 | CONSULTATION NOTE ---
Palliative Care Follow Up - Referral Referring Provider: Dr. 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 She originally started around 2012 or 2013 with memory deficits, and has continued to have deterioration both functional and cognitive, she was needing increased care and became bedbound in 2018. Patient is always avoided doctors, and her hypertension was left untreated.She was cared for at her in his home who has health problems including memory and back pain, with [place] [facility] providers until at the point it lost her main caregiver, and her caregiving became less and adequate for her increasing needs. She did have an MR I her last hospitalization that showed multiple hemorrhages of the brain, and it was thought she developed petit mal seizures vs identified syncopal episodes previously. She is currently being treated with Keppra with good results, and has had no further seizure activities. She has improved her nutritional intake, as had significant weight loss the last few months, and a hospital stay of August, her documented weight was 167, today at the facility it is 140.6. She is starting to feed herself, she still remains dysphasic and aphasic. She is able to respond with yes /no questions to her family, a few words, with some appropriate responses. She does deny pain, she has been on a regular diet with no identified symptoms of choking or aspiration. Her lungs are clear. She does have some mild lower extremity edema, her feet are dependent. She does refuse the use of her TELMA hose. She had developed skin breakdown as a result of deteriorating home situation, her stage II coccyx is now healed. She is still in maximum 2 person assistance transfer. Her daughters are present, are concerned about patient's mood. Reports there is not a significant amount of stimulation here, though does admit to improved from home situation. They are trying to visit his regular as possible, and her check reports he comes daily. She very much though is missing her dog, and there is a barrier of him coming secondary to eating shots etc. Social History - Living Situation Living arrangement: Assisted living Medications/Allergies - Medications Home Medications: Ambulatory Orders Medication Instructions Recorded Confirmed Acetaminophen [Tylenol] 650 mg PO Q4HR PRN tablet 08/20/18 03/31/19 Carvedilol [Coreg] 12.5 mg PO BIDWM 09/04/18 03/31/19 Nystatin Cream [Mycostatin Cream] 1 ea TOP BID PRN 09/04/18 03/31/19 Acetaminophen [Tylenol] 650 mg WI Q6H PRN #40 supp 02/17/19 03/31/19 Cod Liver Oil/Zinc Oxide [Desitin] 113 gm TOP PRN PRN #1 tube 02/17/19 03/31/19 Levetiracetam [Keppra] 500 mg PO BID #300 ml 02/17/19 03/31/19 cloNIDine 0.3 MG PATCH 1 patch TOP Q7D #4 patch 02/17/19 03/31/19 [[id number]] Melatonin 3 mg PO DAILY 03/31/19 03/31/19 - Allergies Allergies/Adverse Reactions: Allergies Allergy/AdvReac Type Severity Reaction Status Date / Time No Known Drug Allergies Allergy Verified 03/26/19 22:19 Review of Systems - Constitutional Constitutional: reports: Fatigue, Weakness. denies: Fever, Chills - Ears, Nose & Throat Ears, Nose & Throat: reports: Hearing loss - Cardiovascular Cardiovascular: reports: Edema, Decr. exercise tolerance - Gastrointestinal Gastrointestinal: reports: Good appetite (fluctuates). denies: Constipation - Genitourinary Genitourinary: reports: Incontinence - Musculoskeletal Musculoskeletal: reports: Stiffness, Limited range of motion, Muscle weakness, Transfer issues (patient max 2 person assist for transfers; was fearful of dayana so have not been using; patient nonweightbearing) - Integumentary Integumentary: reports: Dryness, Nail changes (cracked nail left hand) - Neurological Neurological: reports: General weakness, Memory problems - Psychiatric Psychiatric: reports: Depression. denies: Delusions, Hallucinations (per daughter report of history) Physical Exam - Vital Signs Pulse Rate: 54 Respiratory Rate: 18 O2 Saturation: 92 (ra @ rest) Blood Pressure: 162/62 - Physical Exam General Appearance: positive: No acute distress Eyes Bilateral: positive: Normal inspection, Conjunctivae nml, No scleral icterus Neck: positive: No JVD, Trachea midline Cardiovascular: positive: Regular rate & rhythm Respiratory: positive: No respiratory distress, Diminished in bases Abdomen: positive: Soft, Nml bowel sounds Skin: positive: Pallor, Dryness, Pressure wound (thinned coccyx; pink but not red; using barrier cream. Does not have pressure relief mattress on bed), Other (Left ear laceration is healing, bright pink and slightly tender, but no signs or symptoms of cellulitis or drainage. She does have faded yellow bruising on her anabaptist and into her cheek area.) Extremities: positive: Pedal edema Neurologic/Psychiatric: positive: Disoriented to time, Weakness, Slurred/abnml speech, Depressed mood/affect, Flat affect Palliative Care - POLST Patient has POLST: Yes POLST Status: Comfort Measures Pain: No pain Tiredness/Fatigue: Moderate (4-6) Drowsiness/Sedation: Moderate (4-6) Nausea: None Depression: Moderate (4-6) Anxiety: Moderate (4-6) Dyspnea: None Anorexia: Moderate (4-6), Weight loss (facility have her at 140.6; 03/26 was 153; 2/3 167) Sleep: Sleeps poorly (part of this is related to roomate is noisy;) Constipation: No Feelings of wellbeing/Perceived Quality of Life: Poor, Improved (this is perception of daughters/) Performance Status: Full 2 person lift transfer, she did not like the Dayana lift. She is completely dependent for ADLs. She has been doing some self-feeding, has been does come at dinnertime. There is been no signs or symptoms of choking on her current diet. - Palliative Care Discussion: Daughters present, are having mixed feelings about current setting, though are quite thankful she is in a safe place and getting good care. They really do like the staff, just do not feel like there is enough stimulation. Patient herself wants to see her dog, is somewhat noncommittal, and concern mostly about patient's ability to communicate her feelings or distress. There is reported continued friction with Alfred, by they have been visiting, and took her to Lorena's home on Friday. Answered their questions and addressed concerns, as well as anticipatory guidance provided. Addendum; 03/31 Follow-up with check, as he did not show up as scheduled for co- visit. Reports he forgot, he does feel like she is doing fairly well. And is adjusting, he reports he goes every day. He did bring the dog today, and says she really enjoyed it. They will not help load her in the car, and with his back he is unable to do this independently, this was a disappointment to him. He was hoping to be able to take her out. We did discuss in the context of her depression, the history is no longer on antidepressant after her discharge from the hospital, he was quite surprised, reports this is been long-term problem. Will continue to monitor, patient is to be scheduled to be seen again in 2 weeks, will add antidepressant if indicated. Impression and Recommendations - Palliative Care Impression: This is a 78-year-old female with mixed vascular Alzheimer's dementia, with declining steady over the past few years, now with more acute changes. She is wheelchair-bound, full lift, recently placed in [facility] assisted living. She has had no further seizure activity, does appear with some depressive symptoms, as well as poor sleep. Palliative care to continue provide support and transition to new setting. Recommendations/Counseling Done: 1. Insomnia. Discussed low impact medications, family/daughters concerned about increased sedation, will go ahead and initiate melatonin 3 mg at bedtime, and evaluate effectiveness. History of falls. Because patient in assisted living, they cannot restrain. Did okay to use wedge under mattress to add for safety for positioning, as patient had essentially rolled out when she lacerated her left ear. This had resulted in ED visit. ED doctor did okay Bedrail, but concerned regarding when not available and to high risk for injury. 3. Coccyx stage II decub, healed. Patient still at high risk for further breakdown, they are using barrier cream, daughter is willing to bring in memory foam for bed to decreased risk. Patient does have a wheelchair cushion. 4. Weight loss. Unclear what is appropriate and accurate weight, will have them weigh weekly to better be able to navigate. 5. Depression. Patient has a history of depression, patient identifies it would be helpful to see her dog. In follow-up with she would he was able to bring the dog in the next day. Patient previously on Prozac. Will evaluate at next visit if need to reinitiate antidepressant, most likely would pick Lexapro due to more quick acting. 6. Hypertension. Patient still with some high blood pressures, staff are monitoring it on a daily basis. Cover dial at 12.5 mg twice daily, previously has been at 25 twice daily. May need to be titrated up but will allow patient to settle in prior to making med changes. 7. Advanced care planning. Patient remains quite frail, at high risk for continued decline. Patient currently getting good care, eating better, has access to more of her family. Patient could use more social stimulation, daughter Lorena hoping patient at some point could transition to home place. Patient does have POLST with DNA R/comfort measures. has not completed any paperwork to share D POA, and hoping to build some report to help facilitate family conference, though has been did not show up to visit today. Will schedule later in the afternoon, as this is when her comes usually. Time Spent: 60 minutes with greater than 50% of this done in counseling regarding symptom management, disease process, transition into new setting, and follow-up after ED visit.
== END 2019-03-30 11:01 | disposition home or self-care (01) ==
LOC: PC 11:00
PROVIDERS: ATTEND Nurse Practitioner Adult Health
DX: Z51.5 Encounter for palliative care (principal); G47.00 Insomnia, unspecified; F32.9 Major depressive disorder, single episode, unspecified; I10 Essential (primary) hypertension; Z79.899 Other long term (current) drug therapy; G30.9 Alzheimer's disease, unspecified; F02.80 Dementia in other diseases classified elsewhere, unspecified severity, without behavioral disturbance, psychotic disturbance, mood disturbance, and anxiety; F01.50 Vascular dementia, unspecified severity, without behavioral disturbance, psychotic disturbance, mood disturbance, and anxiety; Z99.3 Dependence on wheelchair; Z91.81 History of falling; S01.312D Laceration without foreign body of left ear, subsequent encounter; R63.4 Abnormal weight loss

== ENCOUNTER 2019-06-29 14:30 | Outpatient (CLI) | payer MEDICARE, MEDICAID ==
--- NOTE | 2019-06-29 18:11 | CONSULTATION NOTE ---
Palliative Care Follow Up - Referral Referring Provider: Dr. 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 She initially started with memory deficits in 2012, and has had deterioration both functionally and cognitively with increasing care needs, until she was bedbound in 2018. Patient is always avoided doctors and her hypertension was left untreated, she does have known rheumatic heart disease valve disorder, aortic stenosis, CKD 3, LVH, PVD, depression, atrial fib, and dementia with behavioral disturbances. Patient recently was relocated to [facility], and assisted living facility for higher care needs particular around memory. She has been settling in, her family visits her frequently, palliative care here to evaluate current condition and adjustment. Patient does have history of depression, this was explored with her as she previously was on antidepressants. She has had weight loss, though this is multifactorial, she does not allow feeding, is quite slow to eat. She has had no signs or symptoms of choking, or dysphagia. She does not display any symptoms of anxiety, she is somewhat reticent to be examined, but does brighten in response to her . Patient is total lift and assist for transfers, she does get up for meals, she does fatigue quite easily. Her coccyx skin is quite thinned, with roughened edges, remains at high risk for recurrent breakdown, she has had no recent infections, she fluctuates with levels of alertness, and remains quite frail but no further falls or injury. Social History - Living Situation Living arrangement: Assisted living Support System: Patient has been a resident at the assisted living since February 2019, her who has health problems visits almost daily, as well as her daugthers and grandsons. Medications/Allergies - Medications Home Medications: Ambulatory Orders Medication Instructions Recorded Confirmed Acetaminophen [Tylenol] 650 mg PO Q4HR PRN tablet 08/20/18 06/30/19 Nystatin Cream [Mycostatin Cream] 1 ea TOP BID PRN 09/04/18 06/30/19 carvediloL [Coreg] 12.5 mg PO BIDWM 09/04/18 06/30/19 Acetaminophen [Tylenol] 650 mg NV Q6H PRN #40 supp 02/17/19 06/30/19 Cod Liver Oil/Zinc Oxide [Desitin] 113 gm TOP PRN PRN #1 tube 02/17/19 06/30/19 Levetiracetam [Keppra] 500 mg PO BID #300 ml 02/17/19 06/30/19 cloNIDine 0.3 MG PATCH 1 patch TOP Q7D #4 patch 02/17/19 06/30/19 [[id number]] Mirtazapine 7.5 mg PO QPM 06/30/19 06/30/19 - Allergies Allergies/Adverse Reactions: Allergies Allergy/AdvReac Type Severity Reaction Status Date / Time No Known Drug Allergies Allergy Verified 03/26/19 22:19 Review of Systems - Constitutional Constitutional: reports: Fatigue, Weight loss (132.0 today; 03/30 140.6). 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 denies: Constipation - Genitourinary Genitourinary: reports: Incontinence - Musculoskeletal Musculoskeletal: reports: Muscle weakness, Transfer issues (full lift transfer; does not bear weight nor demonstrate any ability to assist with bed mobility) - Integumentary Integumentary: reports: Dryness, Other (hx of decub on coccyx) - Neurological Neurological: reports: General weakness, Memory problems, Seizures, Slurred speech - Psychiatric Psychiatric: reports: Depression - Hematologic/Lymphatic Hematologic/Lymphatic: denies: Recurrent infections - All Other Systems All Other Systems: reports: Other (limited ROS) Physical Exam - Vital Signs Temperature: 97.2 C Pulse Rate: 68 Respiratory Rate: 16 Blood Pressure: 112/72 - Physical Exam General Appearance: positive: No acute distress, Lethargic Eyes Bilateral: positive: Normal inspection ENT: positive: Other (lip reddened and dry/chapped). negative: Dry mucous membranes Neck: positive: Trachea midline Cardiovascular: positive: Irregularly irregular, Systolic murmur Respiratory: positive: No respiratory distress, Diminished in bases, Other (poor abililty to take deep breath/follow directions). negative: Wheezes, Rales, Rhonchi Abdomen: positive: Soft Skin: positive: Pallor, Pressure wound (coccyx/sacral area with scarring and roughened area; thinned over area;) Extremities: positive: No pedal edema Neurologic/Psychiatric: positive: Weakness, Slurred/abnml speech (few words offered;), Depressed mood/affect, Flat affect, Other ( feels like recognized him; brightens when saw him) Palliative Care - POLST Patient has POLST: Yes POLST Status: DNR, Comfort Measures Pain: Comment (no pain behaviors observed) Drowsiness/Sedation: Comment (staff report fluctuating levels of awareness) Anorexia: Weight loss Performance Status: Patient a full lift to transfer to her wheelchair, with 2 person assist. This is a barrier as far as being able to take patient in and out of car, patient's posture is tilting forward, very slow to respond. She is dependent for all her ADLs. Patient does take a long time to eat, but will not allow people to feed her. Her intake often depends on what is offered, she likes chocolate. - Palliative Care Discussion: Daughter Lorena had reached out, concerned about patient and facility and events that she was worried about impacting her mother. Did meet with facility nurse, and review concerns, patient has been doing fine and adjusting fairly well to her new setting. The identified problem has been resolved, and no identified concerns at time of visit noted to follow-up on. In the context of her Alfred, who is her D POA, he is satisfied with the care she is getting there and identified no concerns as well. Staff are quite loving and attentive to patient, patient seems comfortable with them. In follow-up with Alfred, we did discuss patient's history of depression, in her transition to facility she is no longer on an antidepressant. was not aware. He reports her depression has been long-term, she has been tearful in the past, her mood does fluctuate and she has benefited. We discussed in the context of her weight loss, history of depression, and adjustment to her new setting would recommend considering a trial of mirtazapine at a low dose, his goal is to focus on her quality of life and is in agreement. He does not want any aggressive interventions, but things that will make her feel better, he is concerned about taking around the facility, but we did discuss paratransit for them to be able to take a "field trip". They have been together since 1981, and since 1987. 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 Unfortunately shortly after that, she presented with her dementia. She has had a fairly steady decline, until he was no longer able to take care of her. There is been a significant amount of tension between him and her daughters, though they are able to visit and do spend quite a bit of time with her at the facility. He is fine with that, as well as giving information about her generally, but not access to medical records or DPOA. Impression and Recommendations - Palliative Care Impression: This is a 78-year-old woman with mixed vascular/Alzheimer's dementia, with steady decline over the last few years, now with more acute changes. She is wheelchair bound, full lift, and recently transition to assisted living/memory unit. Patient does present with persistent depressive symptoms, and a history of depression. She remains quite frail, and with weight loss noted. Palliative care to continue provide support regarding quality of life issues. Recommendations/Counseling Done: 1. Depression. Patient with known long-term depression, previously on antidepressants. Patient does present with persistent depressive symptoms, weight loss, lethargy, and persistence of sadness. Will initiate in the context of supporting also her appetite mirtazapine 7.5 mg at bedtime and evaluate response. Can titrate up to 15 mg if needed. 2. Weight loss. This is multifactorial, patient is slow to eat, resist feeding. Will add supplements if indicated, will start with mirtazapine to boost appetite. We will continue to monitor. 3. Hypertension. Patient presents today with blood pressure 112/72, historically 06/21 96/66; 04/18 126/80; 06/10 114/70. Will monitor and consider decreasing Clonazipin patch if remain low or decreased. 4.History of decub. Will order Cavilon barrier cream to be applied once daily, for protection and prevent further breakdown. Staff aware of patient's frag ility, will continue to enlist pressure relief measures. 5. Advanced care planning. who is D POA, does not want to add daughter's D POA, is okay to give her updates and respond accordingly. His focus is to improve her quality of life, recognizing she is declining quite fragile.Did discuss getting her out of the facility, encouraged him to use paratransit and plan some "field trips". We will continue to monitor respond as issues arise. Time Spent: 50 minutes with greater than 50% of this done in counseling regarding follow-up on depression, concerns, evaluating quality of life issues and goals of care, plan to follow-up in 3 to 4 weeks to evaluate response to mirtazapine.
== END 2019-06-29 14:31 | disposition home or self-care (01) ==
LOC: PC 14:30
PROVIDERS: ATTEND Nurse Practitioner Adult Health
DX: Z51.5 Encounter for palliative care (principal); G30.9 Alzheimer's disease, unspecified; F02.81 Dementia in other diseases classified elsewhere, unspecified severity, with behavioral disturbance; F32.9 Major depressive disorder, single episode, unspecified; R63.4 Abnormal weight loss; I12.9 Hypertensive chronic kidney disease with stage 1 through stage 4 chronic kidney disease, or unspecified chronic kidney disease; N18.3 Chronic kidney disease, stage 3 (moderate); Z79.899 Other long term (current) drug therapy; Z87.2 Personal history of diseases of the skin and subcutaneous tissue; Z99.3 Dependence on wheelchair; Z66 Do not resuscitate

== ENCOUNTER 2019-08-12 13:35 | Outpatient (CLI) | payer MEDICARE, MEDICAID ==
--- NOTE | 2019-08-12 20:44 | CONSULTATION NOTE ---
Palliative Care Follow Up - Referral Referring Provider: Dr. Bill Nugent Time of Visit: 8723 Referral setting: Adult Family Home ([facility]) Referral Reason: Dementia/Depression - Information Sources Records reviewed: Previous records reviewed History/Review of Systems obtained from: Patient, Family (, Alfred), Caregiver (facility staff) Exam limitations: Clinical condition (Poor historian due to dementia and limited verbalizations) - History of Present Illness Update Brief HPI Update: This is 78-year-old female who is seen and evaluated today in her assisted living facility, formerly [facility], for follow-up regarding her depression. She has a history of dementia, likely a mix of vascular and Alzheimer's, as a result of previously untreated hypertension. She also has a past medical history of rheumatic heart disease valve disorder, aortic stenosis, CKD 3, LVH, PVD, depression, atrial fib, and dementia with behavioral disturbances. She had been residing at home with her but her care needs became too great that she needed to be transferred to an assisted living for higher care needs around memory. Her visits her almost daily. She seems to have been adjusting well to her current situation. Today she was seen after she participated in a [employer] in the [facility]. She has a history of depression and had previously been on antidepressants. She was initiated on mirtazapine 7.5 mg at bedtime begun on July 01, 2019. Her spouse does not report any depressive symptoms outside of her statement to him at times of "wanting to come home." Staff offer no further concerns regarding mood. She has had a steady weight loss that seems to have stabilized possibly with the addition of mirtazapine. Her present weight is 134 pounds obtained on August 11. Previously she was 132 on 1219. She does better with finger [facility] staff due to difficulty gripping at times she requires assistance with meals. No evidence or signs of dysphasia. Staff note that she tends to lean to one side in the wheelchair and often fatigues very easily. She has a history of skin breakdown to her coccyxal area which is presently intact. Lastly staff report to intermittent bouts of constipation. Staff in the past have had to manually disimpact the patient. Staff is requesting a routine bowel regiment to eliminate symptoms of constipation. Patient denies any nausea vomiting or abdominal pain. Social History - Living Situation Living arrangement: Assisted living Support System: Patient has been a resident at [facility] since February 2019. Her , Alfred, also has health problems and visits her almost daily. She also has frequent visitors with her daughters as well as her grandchildren. Medications/Allergies - Medications Home Medications: Ambulatory Orders Medication Instructions Recorded Confirmed Acetaminophen [Tylenol] 650 mg PO Q4HR PRN tablet 08/20/18 06/30/19 carvediloL [Coreg] 12.5 mg PO BIDWM 09/04/18 06/30/19 Acetaminophen [Tylenol] 650 mg NE Q6H PRN #40 supp 02/17/19 06/30/19 Cod Liver Oil/Zinc Oxide [Desitin] 113 gm TOP PRN PRN #1 tube 02/17/19 06/30/19 Levetiracetam [Keppra] 500 mg PO BID #300 ml 02/17/19 06/30/19 cloNIDine 0.3 MG PATCH 1 patch TOP Q7D #4 patch 02/17/19 06/30/19 [[id number]] Mirtazapine 7.5 mg PO QPM 06/30/19 06/30/19 Cavilon Barrier Cream 1 applic TP DAILY 08/13/19 Magnesium Hydroxide [Milk of 30 ml PO .Q3DAY PRN 08/13/19 08/13/19 Magnesia] polyethylene glycoL 3350 [Miralax] 17 gm PO DAILY MDD .Hold for loose 08/13/19 08/13/19 stools - Allergies Allergies/Adverse Reactions: Allergies Allergy/AdvReac Type Severity Reaction Status Date / Time No Known Drug Allergies Allergy Verified 03/26/19 22:19 Review of Systems - Constitutional Constitutional: reports: Fatigue, Weight loss (weight 134lb 08/11/2019; weight 132lb 07/01/19; 140.6lb 03/30/19) - Eyes Eyes: denies: Irritation - Ears, Nose & Throat Ears, Nose & Throat: denies: Dry mouth - Cardiovascular Cardiovascular: reports: Irregular heart rate. denies: Chest pain - Respiratory Respiratory: denies: Cough, Wheezing - Gastrointestinal Gastrointestinal: reports: Constipation, Other (slow to consume meals; when finger foods she is able to consume all her meal). denies: Abdominal pain, Abdominal distention, Nausea, Vomiting - Musculoskeletal Musculoskeletal: reports: Limited range of motion, Muscle weakness, Assistive devices (wheelchair bound), Transfer issues (Full lift transfer; does not bear weight) - Integumentary Integumentary: reports: Dryness - Neurological Neurological: reports: General weakness, Memory problems, Seizures - Psychiatric Psychiatric: reports: Depression - Hematologic/Lymphatic Hematologic/Lymphatic: denies: Recurrent infections - Other Findings Other Findings: Limited ROS as patient is a poor historian due to dementia. Physical Exam - Vital Signs Temperature: 36.4 C Pulse Rate: 54 O2 Saturation: 96 (on RA) Blood Pressure: 132/85 (right wrist cuff) - Physical Exam General Appearance: positive: No acute distress, Other (appears fatigued; OOB in wheelchair leaning to her left side) Eyes Bilateral: positive: Normal inspection ENT: positive: Dry mucous membranes Neck: positive: Trachea midline Cardiovascular: positive: Irregularly irregular, Systolic murmur (2/6 SUSAN; +2 b/l pedal pulses) Respiratory: positive: No respiratory distress, Diminished in bases (due to poor inspiratory effort). negative: Rales, Rhonchi Abdomen: positive: Non-tender, Soft, Nml bowel sounds. negative: Distended Skin: positive: Dryness Extremities: negative: No pedal edema Neurologic/Psychiatric: positive: Disoriented to place, Disoriented to time, Flat affect, Other (few words offered in course of examination; recognizes her name) Palliative Care - POLST Patient has POLST: Yes POLST Status: DNR, Comfort Measures Pain: No pain (No pain behaviors observed) Drowsiness/Sedation: Comment (Fluctuating level of awareness and patient reports to feeling tired) Anorexia: Weight loss (weight loss has stabilized) Constipation: Yes Performance Status: Patient is wheelchair-bound and dependent for all ADLs. Patient takes a long time to continue her meals, but well allow some assistance with feeding at times. She is able to manage finger foods. She looks forward to sweets particularly chocolate. She is a full lift to transfer to her wheelchair with a two-person assist. Patient posture is leaning to the left side and has difficulty remaining upright. - Palliative Care Discussion: The patient is having difficulty remaining in an upright posture in her wheelchair, has fluctuating levels of awareness, with a stabilization of her recent weight loss. She is a two-person assist to her wheelchair and is dependent for all her ADLs. She would benefit from a tilt in space wheelchair to improve her positioning, truncal support, transfer for the patient to participate in activities as well as reduce fall risk and skin breakdown. She also would benefit from physical therapy to assist with transfer training and passive range of motion exercises. Her , Alfred, is focused on having the patient be as comfortable as possible with her remaining time here [facility]. They have not been able to have a "field trip" out of the facility due to weather. Her mood seems stable per staff and 's report after introduction of mirtazapine 7.5mg in the evening. Goals remain to focus on comfort and quality of life issues with palliative care to continue to provide support until transition to hospice. Impression and Recommendations - Palliative Care Impression: This is a 78-year-old woman with mixed vascular and Alzheimer's dementia with a steady decline over the past few years with a longtime history of depression. She has benefited from introduction of mirtazapine 7.5 mg nightly for her mood with stabilization of her recent weight loss. She is wheeled chair bound with a need for increased truncal support and would benefit from a tilt in space wheelchair. Due to her lack of immobility she would also benefit from passive range of motion and transfer training with the staff. The patient continues to remain quite frail. Palliative care to continue to provide support regarding quality of life issues. Recommendations/Counseling Done: 1. Generalized weakness. Secondary to dementia. Patient is nonambulatory and is wheelchair dependent with a full 2 person lift assist to transfer to her wheelchair and is nonweight bearing. She has poor truncal stability and will offer lean to one side limiting her ability to self feed as well due to positioning. She would benefit from evaluation and treatment program from PT for transfer training with the staff as well as passive range of motion regimen to persevere functional as well as evaluation for a tilt in space wheelchair. 2. Constipation. Multifactorial given sedentary state. Start miralax 17gram po daily dissolved in 4 ounces of liquid and to hold for loose stools. Start MOM 3 0mL po daily PRN if no bowel movement every 3 days. Continue to monitor and adjust bowel regimen as needed. The patient is resistant to medications per the staff and would likely have better adherence to liquid forms. 3. Depression. Long standing history of depression, previously on antidepressants. Mood appears stable on mirtazapine 7.5mg with no further weight loss. Will continue to monitor and titrate dose of mirtazapine as needed based on depressive symptoms. 4. HTN with history of afib. No cardiac awareness. BP today 132/85. Continue co reg and clonidine patch as ordered. Obtain BP and HR daily x 7 days and send results to [facility] to review to determine if dose reduction is needed for the clonidine patch. Continue to monitor BP trends and adjust antihypertensive medications as needed. 5. Dementia. Mixed. Chronic. Progressive. Supportive Care. Fall precautions. No behavioral concerns reported by staff. Slow, gradual decline is expected. 6. Advanced care planning. POLST DNAR with comfort measures. , Alfred, wishes to focus on quality of life. FACE to FACE: Patient is nonambulatory with generalized weakness with limited truncal support requiring frequent re-positioning. She has a history of skin breakdown to her coccyxal area. She is a total assist for all ADLs due to to her cognitive status. It would be a taxing and considerable effort for the patient to leave her assisted living facility secondary to her generalized weakness and which wheelchair bound status. Refer to home health physical therapy for passive range of motion program and exercises, transfer training with caregivers, wheelchair assessment and evaluation, with a goal of pivot transfers to her wheelchair. She requires a tilt and space wheelchair as her present chair lacks the tilt needed to properly position the patient and her time out of bed is extremely limited due to lack of an appropriate device. She requires frequent repositioning due to poor truncal support and would also benefit from a seat cushion to reduce pressure as she is unable to shift her weight. Time Spent: Total time spent 40 minutes with greater than 50% of this spent in counseling and coordination of care with , Alfred and facility staff; examination of patient; medication reconciliation; evaluation for need for physical therapy services; review of symptom management and anticipatory guidance. Disclaimer: The chart note was formulated using voice recognition technology and unfortunately sound alike errors may occur.
== END 2019-08-12 13:36 | disposition home or self-care (01) ==
LOC: PC 13:35
PROVIDERS: ATTEND Nurse Practitioner Family
DX: Z51.5 Encounter for palliative care (principal); R63.4 Abnormal weight loss; F03.90 Unspecified dementia, unspecified severity, without behavioral disturbance, psychotic disturbance, mood disturbance, and anxiety; R53.1 Weakness; K59.00 Constipation, unspecified; F32.9 Major depressive disorder, single episode, unspecified; I10 Essential (primary) hypertension; Z79.899 Other long term (current) drug therapy; Z99.3 Dependence on wheelchair; Z66 Do not resuscitate

== ENCOUNTER 2019-08-28 05:50 | Outpatient (CLI) | payer MEDICARE, MEDICAID | END 2019-08-28 05:51 | disposition E | LOC: EMS 05:50 | PROVIDERS: ATTEND Surgery ==